=== PATIENT | male | born 1945 | race Caucasian/White ===

== ENCOUNTER → 2016-12-18 | Outpatient (CLI) | payer MEDICARE ==
[2016-12-18 13:34] LABS: CH 31.5; CHCM 32.8; HCT 46.1 % (39.0-53.0); HDW 2.44; HGB 15.3 gm/dL (13.0-17.5); MCH 32.1 pg (25.0-35.0); MCHC 33.2 g/dL (31.0-37.0); MCV 96.5 fL (80.0-100.0); Mean Platelet Volume 7.9; RBC 4.77 m/uL (4.30-5.90); RDW 13.8 % (11.5-15.5); WBC 9.5 k/uL (3.8-10.6)
[2016-12-18 13:44] LABS: ALT 35 U/L (21-72); AST 23 U/L (17-59); Alkaline Phosphatase 62 U/L (38-126); Anion Gap 10 mmol/L; Blood Urea Nitrogen 20 mg/dL (9-20); Calcium 9.5 mg/dL (8.4-10.2); Carbon Dioxide 27 mmol/L (22-30); Chloride 108 mmol/L (98-107); Cholesterol 112 mg/dL (<200); Glucose 111 mg/dL (74-99); HDL Cholesterol 37 mg/dL (40-60); Non-African American GFR(MDRD) >60 (>60 ml/min/1.73 sqM); Potassium 3.7 mmol/L (3.5-5.1); Sodium 145 mmol/L (137-145); Total Bilirubin 0.7 mg/dL (0.2-1.3); Total Protein 6.8 g/dL (6.3-8.2); Triglycerides 234 mg/dL (<150)
[2016-12-18 14:15] LABS: Prostate Specific Antigen 0.12 ng/mL (0.00-4.00)
--- NOTE | 2016-12-18 17:01 | CT ---
EXAMINATION TYPE: CT angio thoracic/abd aorta DATE OF EXAM: 12/18/2016 2:57 PM COMPARISON: NONE HISTORY: Patient has no complaints at time of study. Follow up study for known aortic aneurysm. CT DLP: 1845 mGycm Automated exposure control for dose reduction was used. CONTRAST: Performed with IV Contrast, patient injected with 100 mL of Omnipaque 350. Technique technique: CTA of the chest and abdomen is performed first without and with intravenous con trast. Three-D reconstructed images performed separately on the [employer] computer are reviewed. FINDINGS: The ascending thoracic aorta at the level of the main pulmonary artery is 3.7 rcm. The main pulmonary artery the bifurcation is 2.8 cm. No enlarged mediastinal or hilar adenopathy is evident. Coronary a rtery calcification is present. CT ABDOMEN: The right adrenal gland appears within normal limits. There is mild thickening of the lef t adrenal gland 1.1 cm. There is an exophytic cyst measuring 2.8 cm and 7 Hounsfield units along the anterior medial superior left kidney. Liver is unremarkable. Vascular calcifications within the aorta . Inferior vena cava is unremarkable. Loops of bowel without contrast appear unremarkable. Thyroid is somewhat heterogenous. Consider ultrasound evaluation. The ascending thoracic descending aorta taper normally. IMPRESSION: NO ANEURYSMAL DILATATION OF THE ASCENDING THORACIC AORTIC ARCH AND DESCENDING THORACIC OR ABDOMINAL A TACO. ASCENDING THORACIC AORTA AT 4.0 CM IS PROMINENT. 2. MILD PROMINENCE OF THE LEFT ADRENAL GLAND. 2. HETEROGENEITY OF THE SPLEEN. CONSIDER ULTRASOUND FOR ADDITIONAL EVALUATION.
[2016-12-18 22:19] LABS: Hemoglobin A1C 5.7 % (4.2-6.1)
== END | disposition home or self-care (01) ==
LOC: RADCTMAIN 12:58
PROVIDERS: ATTEND Internal Medicine Interventional Cardiology
DX: R93.8 Abnormal findings on diagnostic imaging of other specified body structures (principal); I10 Essential (primary) hypertension; R73.9 Hyperglycemia, unspecified; E78.00 Pure hypercholesterolemia, unspecified; Z00.00 Encounter for general adult medical examination without abnormal findings; Z13.29 Encounter for screening for other suspected endocrine disorder
CPT/HCPCS: 84439; 84153; 80061; 80053; 83036; 84443; 85027; 75635; 71275; 36415; Q9967

== ENCOUNTER → 2018-02-17 | Outpatient (CLI) | payer MEDICARE ==
--- NOTE | 2018-02-17 14:47 | CT ---
EXAMINATION TYPE: CT abdomen wo con DATE OF EXAM: 02/17/2018 COMPARISON: 12/18/2016 INDICATION: Abdominal aortic aneurysm, without rupture DLP: 1275.4 mGycm, Automated exposure control for dose reduction was used. CONTRAST: None Study performed without Oral Contrast TECHNIQUE: Axial images were obtained from above the diaphragm to the pubic rami in the axial plane a t 5 mm thick sections. Reconstructed images are reviewed on the computer in the coronal plane. FINDINGS: Limited CT sections are obtained the lung bases. The lung bases are clear. CT ABDOMEN: Liver: Normal Spleen: Normal Pancreas: Normal Adrenal glands: There is thickening of the left adrenal gland measuring 1.1 cm. The right adrenal gla nd appears normal. Gallbladder: Normal Kidneys: No masses are evident. No hydronephrosis is present. There is a large exophytic cyst on th e superior pole left kidney measuring 3.3 cm in craniocaudal dimension and 14 Hounsfield units. Aorta: Vascular calcification is within the aorta. Aorta measures 3.0 cm at some fusiform prominence within its midportion. AP diameter is 3.4 cm. In the sagittal plane images this measures 3.6 cm whic h is greater than a 3.3 cm from previous. Inferior vena cava: Normal. IMPRESSIONS: 1. Prominence of the mid abdominal aorta with maximum AP diameter of 3.6 cm. This is increased AP di ameter from the prior exam.
== END | disposition home or self-care (01) ==
LOC: RADCTMAIN 07:51
PROVIDERS: ATTEND Internal Medicine
DX: I71.4 Abdominal aortic aneurysm, without rupture (principal)
CPT/HCPCS: 74150

== ENCOUNTER → 2018-07-08 | Outpatient (CLI) | payer MEDICARE ==
[2018-07-08 14:39] LABS: HCT 44.7 % (39.0-53.0); HGB 14.2 gm/dL (13.0-17.5); MCH 30.7 pg (25.0-35.0); MCHC 31.8 g/dL (31.0-37.0); MCV 96.6 fL (80.0-100.0); Mean Platelet Volume 7.6; Platelet Count 195 k/uL (150-450); RBC 4.63 m/uL (4.30-5.90); RDW 13.6 % (11.5-15.5); WBC 9.1 k/uL (3.8-10.6)
[2018-07-08 19:25] LABS: ALT 19 U/L (10-49); AST 23 U/L (14-35); Albumin/Globulin Ratio 2.28 (1.20-2.10); Alkaline Phosphatase 51 U/L (41-126); C Reactive Protein <0.4 mg/dL (0.0-0.8); Calcium 8.9 mg/dL (8.7-10.3); Carbon Dioxide 26.7 mmol/L (21.6-31.8); Chloride 109 mmol/L (96-109); Globulin 1.8 g/dL (2.1-3.7); Glucose 128 mg/dL (70-110); Potassium 3.9 mmol/L (3.5-5.5); Sodium 143 mmol/L (135-145); Total Bilirubin 0.6 mg/dL (0.3-1.2); Total Protein 5.9 g/dL (6.2-8.2)
[2018-07-08 21:09] LABS: Erythrocyte Sedimentation Rate 2 mm/hr (0-15)
== END | disposition home or self-care (01) ==
LOC: LABWHC1 13:18
PROVIDERS: ATTEND Internal Medicine Infectious Disease
DX: E63.8 Other specified nutritional deficiencies (principal); L89.890 Pressure ulcer of other site, unstageable
CPT/HCPCS: 36415; 80053; 84134; 85027; 85652; 86140

== ENCOUNTER → 2018-08-12 | Outpatient (CLI) | payer MEDICARE ==
--- NOTE | 2018-08-12 12:29 | NM ---
EXAMINATION TYPE: NM bone 3 phase DATE OF EXAM: 08/12/2018 COMPARISON: NONE HISTORY: Pain and swelling Triple phase bone scintigraphy was performed following the injection of 25.0 mCi Tc 99m MDP. Immedia te images and 3.25 hours post injection images acquired. FINDINGS: There is increased perfusion to the right foot. Blood flow images demonstrate increased soft tissue uptake overlying the first digit distally. There is increased uptake involving the distal phalanx first digit. Abnormal uptake involving the MTP joint of the left foot and midfoot likely post arthritic. IMPRESSION: 1. Findings are suggestive of cellulitis with osteomyelitis distal phalanx first digit right foot.
== END | disposition home or self-care (01) ==
LOC: RADNMMAIN 07:28
PROVIDERS: ATTEND Internal Medicine Infectious Disease
DX: M86.8X8 Other osteomyelitis, other site (principal)
CPT/HCPCS: 78315; A9503

== ENCOUNTER → 2018-10-12 | Outpatient (CLI) | payer MEDICARE ==
--- NOTE | 2018-10-12 08:00 | US ---
EXAMINATION TYPE: US duplex aorta DATE OF EXAM: 10/12/2018 COMPARISON: NONE CLINICAL HISTORY: I71.4 Abdominal aortic aneurysm, without rupture. known AAA, no symptoms, family h/ o AAA EXAM MEASUREMENTS: Abdominal Aorta: Proximal: 3.2 x 3.5cm Mid: 3.1 x 2.9cm Distal: 2.5 x 2.0cm Bifurcation: Rt = 1.8cm Lt = 1.8cm More of an ectatic appearance of aorta by measurements today. IMPRESSION: 1. mild aneurysmal dilatation noted.
== END ==
LOC: RADUSWWP 07:11
PROVIDERS: ATTEND Internal Medicine
DX: I71.4 Abdominal aortic aneurysm, without rupture (principal)
CPT/HCPCS: 93979

== ENCOUNTER → 2019-02-27 | Outpatient (CLI) | payer MEDICARE ==
--- NOTE | 2019-02-27 20:23 | US ---
EXAMINATION TYPE: US venous doppler duplex LE LT DATE OF EXAM: 02/27/2019 7:54 PM COMPARISON: NONE CLINICAL HISTORY: L03.116 Cellulitis of left lower limb. Cellulitis left leg. No hx of DVT. Pt on blo od thinners. SIDE PERFORMED: Left TECHNIQUE: The lower extremity deep venous system is examined utilizing real time linear array sonog hina with graded compression, doppler sonography and color-flow sonography. VESSELS IMAGED: External Iliac Vein (EIV) Common Femoral Vein Deep Femoral Vein Greater Saphenous Vein * Femoral Vein Popliteal Vein Small Saphenous Vein * Proximal Calf Veins (* superficial vessels) Left Leg: No evidence of DVT in the left leg at this time. IMPRESSION: Normal left leg duplex venous sonogram.
== END | disposition home or self-care (01) ==
LOC: RADUSMAIN 19:07
PROVIDERS: ATTEND Internal Medicine
DX: L03.116 Cellulitis of left lower limb (principal)

== ENCOUNTER 2019-03-11 16:23 | Observation (INO) | payer MEDICARE ==
[2019-03-11] MEDS ORDERED: ASPIRIN 81 MG PO STA (16:47)
[2019-03-11 17:39] LABS: Basophils # (A) 0.1 k/uL (0-0.2); Basophils % (A) 1 %; Eosinophils # (A) 0.3 k/uL (0-0.7); Eosinophils % (A) 3 %; HCT 39.5 % (39.0-53.0); HGB 12.8 gm/dL (13.0-17.5); Lymphocytes # (A) 2.6 k/uL (1.0-4.8); Lymphocytes % (A) 28 %; MCH 30.6 pg (25.0-35.0); MCHC 32.4 g/dL (31.0-37.0); MCV 94.5 fL (80.0-100.0); Mean Platelet Volume 8.2; Monocytes # (A) 0.7 k/uL (0-1.0); Monocytes % (A) 7 %; Neutrophils # (A) 5.3 k/uL (1.3-7.7); Neutrophils % (A) 58 %; Platelet Count 191 k/uL (150-450); RBC 4.19 m/uL (4.30-5.90); RDW 14.2 % (11.5-15.5); WBC 9.1 k/uL (3.8-10.6)
[2019-03-11 17:48] LABS: African American GFR (CKD) >90 (>60 ml/min/1.73 sqM); Anion Gap 9 mmol/L; Blood Urea Nitrogen 20 mg/dL (9-20); Calcium 9.4 mg/dL (8.4-10.2); Carbon Dioxide 23 mmol/L (22-30); Chloride 109 mmol/L (98-107); Glucose 109 mg/dL (74-99); Sodium 141 mmol/L (137-145)
--- NOTE | 2019-03-11 18:03 | XR ---
EXAMINATION TYPE: XR chest 2V DATE OF EXAM: 03/11/2019 COMPARISON: 10/21/2015 INDICATION: Pain, short of breath TECHNIQUE: Frontal and lateral views of the chest are obtained. FINDINGS: The heart size is normal. The pulmonary vasculature is normal. The lungs are clear. Pacemaker overlies left chest. IMPRESSION: 1. No acute pulmonary process.
--- NOTE | 2019-03-11 18:04 | XR ---
EXAMINATION TYPE: XR ribs LT DATE OF EXAM: 03/11/2019 COMPARISON: 03/11/2019 HISTORY: Pain TECHNIQUE: Two-view left RIBS FINDINGS: No pneumothorax is evident on these images were the accompanying chest film. No displaced fractures are evident. IMPRESSION: 1. Normal left ribs
[2019-03-11] MEDS ORDERED: NALOXONE 0.4 MG/ML 1 ML VIAL IV PRN (19:32)
--- NOTE | 2019-03-11 19:48 | ED ---
General Adult HPI - General Chief complaint: Arrhythmia/Palpitations Stated complaint: palpitations Time Seen by Provider: 03/11/19 16:33 Source: patient, family Mode of arrival: ambulatory Limitations: no limitations - History of Present Illness Initial comments: Patient is a 73-year-old male with a history of atrial fibrillation, status post pacemaker placement who presents with a chief complaint of intermittent lightheadedness, or palpitations, fatigue. Patient states that at home he has been taking his pulse ox and heart rate this as his heart rate is in the low 30s. His vehicle after about 4 days. He cannot identify the inciting incident. There are no remitting or alleviating factors. Timing is constant. Patient denies chest pain, nausea or vomiting, diaphoresis. - Related Data Home Medications Medication Instructions Recorded Confirmed Furosemide [Lasix] 20 mg PO QAM 02/27/14 03/11/19 Hydrocodone/Acetaminophen [[place] 1 tab PO BID 02/27/14 03/11/19 7.5-325] Losartan Potassium 100 mg PO QAM 02/27/14 03/11/19 Montelukast [Singulair] 10 mg PO HS 02/27/14 03/11/19 Simvastatin [Zocor] 40 mg PO HS 02/27/14 03/11/19 Terazosin [Hytrin] 5 mg PO BID 02/27/14 03/11/19 hydrALAZINE HCL [Apresoline] 50 mg PO TID 02/27/14 03/11/19 Mens Prostate Support 1 tab PO BID 10/31/15 03/11/19 Metoprolol Tartrate [Lopressor] 50 mg PO BID 10/31/15 03/11/19 Multivitamins, Thera [Multivitamin 1 tab PO DAILY 10/31/15 03/11/19 (formulary)] Albuterol Nebulized [Ventolin 2.5 mg INHALATION RT-BID 12/11/15 03/11/19 Nebulized] Budesonide/Formoterol Fumarate 2 puff INHALATION RT-BID 12/11/15 03/11/19 [Symbicort 160-4.5 Mcg Inhaler] Rivaroxaban [Xarelto] 15 mg PO DAILY 06/28/18 03/11/19 Cholecalciferol [Vitamin D3 (25 1,000 unit PO HS 03/11/19 03/11/19 Mcg = 1000 Iu)] Coconut Oil 1,000 mg PO BID 03/11/19 03/11/19 Allergies Allergy/AdvReac Type Severity Reaction Status Date / Time Tetanus Vaccines and Toxoid Allergy Unknown Verified 03/11/19 20:18 Review of Systems ROS Statement: Those systems with pertinent positive or pertinent negative responses have been documented in the HPI. ROS Other: All systems not noted in ROS Statement are negative. Cardiovascular: Reports: palpitations Past Medical History Past Medical History: Heart Failure, COPD, Hyperlipidemia, Hypertension, Prostate Disorder, Sleep Apnea/CPAP/BIPAP Additional Past Medical History / Comment(s): REFLEX SYMPATHETIC DYSTROPHY, PACEMAKER /AICD ([employer]), DENIES EDEMA, USES C-PAP MACHINE, ENLARGED PROSTATE. , . History of Any Multi-Drug Resistant Organisms: None Reported Past Surgical History: AICD, Back Surgery, Pacemaker Additional Past Surgical History / Comment(s): BACK SURGERY X3, ABDOMINAL MASS, UMBILICAL HERNIA SURGERY'S. mass removed from throat Past Anesthesia/Blood Transfusion Reactions: No Reported Reaction Type of Cardiac Device: Permanent Pacemaker, AICD Device Placement Date:: 05/19/2011 Past Psychological History: No Psychological Hx Reported Smoking Status: Light tobacco smoker Past Alcohol Use History: None Reported - Past Family History Brother(s) Family Medical History: Deep Vein Thrombosis (DVT) Father Family Medical History: Cancer Additional Family Medical History / Comment(s): LIP CANCER Mother Additional Family Medical History / Comment(s): anuersym of the brain General Exam Limitations: no limitations General appearance: alert, in no apparent distress Head exam: Present: atraumatic, normocephalic Eye exam: Present: normal appearance ENT exam: Present: normal exam Neck exam: Present: normal inspection Respiratory exam: Present: normal lung sounds bilaterally. Absent: respiratory distress, wheezes Cardiovascular Exam: Present: regular rate, normal rhythm GI/Abdominal exam: Present: soft. Absent: distended, tenderness Rectal exam: Present: deferred Extremities exam: Present: normal inspection Back exam: Present: normal inspection Neurological exam: Present: alert, oriented X3 Psychiatric exam: Present: normal affect, normal mood Skin exam: Present: warm, dry, intact Course Vital Signs 03/11/19 03/11/19 16:26 20:14 Temperature 97.9 F 98.3 F Pulse Rate 77 90 Respiratory 20 17 Rate Blood Pressure 167/77 170/69 O2 Sat by Pulse 97 92 L Oximetry Medical Decision Making - Medical Decision Making Patient presents with a chief complaint of palpitations. Initial evaluation, vital signs are stable, patient is in no acute distress. Patient to be evaluated with basic labs including cardiac enzymes, chest x-ray, and he will have his pacemaker interrogated. 8:13 PM Laboratory evaluation this patient is unremarkable. Chest x-ray and rib x-rays do not show any acute process. Reevaluation, the patient is resting comfortably. He'll be admitted as he is likely symptomatic from his frequent PVCs identified on EKG. Case discussed with Dr. Springer who accepts admission. Case discussed Dr. Lombardo who is aware the patient and knows that he will be consult. - Lab Data Result diagrams: 03/11/19 17:07 03/11/19 17:07 Lab Results 03/11/19 03/11/19 03/11/19 Range/Units 17:07 17:07 17:07 WBC 9.1 (3.8-10.6) k/uL RBC 4.19 L (4.30-5.90) m/uL Hgb 12.8 L (13.0-17.5) gm/dL Hct 39.5 (39.0-53.0) % MCV 94.5 (80.0-100.0) fL MCH 30.6 (25.0-35.0) pg MCHC 32.4 (31.0-37.0) g/dL RDW 14.2 (11.5-15.5) % Plt Count 191 (150-450) k/uL Neutrophils % 58 % Lymphocytes % 28 % Monocytes % 7 % Eosinophils % 3 % Basophils % 1 % Neutrophils # 5.3 (1.3-7.7) k/uL Lymphocytes # 2.6 (1.0-4.8) k/uL Monocytes # 0.7 (0-1.0) k/uL Eosinophils # 0.3 (0-0.7) k/uL Basophils # 0.1 (0-0.2) k/uL Sodium 141 (137-145) mmol/L Potassium 4.0 (3.5-5.1) mmol/L Chloride 109 H (98-107) mmol/L Carbon Dioxide 23 (22-30) mmol/L Anion Gap 9 mmol/L BUN 20 (9-20) mg/dL Creatinine 0.79 (0.66-1.25) mg/dL Est GFR (CKD-EPI)AfAm >90 (>60 ml/min/1.73 sqM) Est GFR (CKD-EPI)NonAf 89 (>60 ml/min/1.73 sqM) Glucose 109 H (74-99) mg/dL Calcium 9.4 (8.4-10.2) mg/dL Troponin I (0.000-0.034) ng/mL NT-Pro-B Natriuret Pep 605 pg/mL 03/11/19 Range/Units 17:07 WBC (3.8-10.6) k/uL RBC (4.30-5.90) m/uL Hgb (13.0-17.5) gm/dL Hct (39.0-53.0) % MCV (80.0-100.0) fL MCH (25.0-35.0) pg MCHC (31.0-37.0) g/dL RDW (11.5-15.5) % Plt Count (150-450) k/uL Neutrophils % % Lymphocytes % % Monocytes % % Eosinophils % % Basophils % % Neutrophils # (1.3-7.7) k/uL Lymphocytes # (1.0-4.8) k/uL Monocytes # (0-1.0) k/uL Eosinophils # (0-0.7) k/uL Basophils # (0-0.2) k/uL Sodium (137-145) mmol/L Potassium (3.5-5.1) mmol/L Chloride (98-107) mmol/L Carbon Dioxide (22-30) mmol/L Anion Gap mmol/L BUN (9-20) mg/dL Creatinine (0.66-1.25) mg/dL Est GFR (CKD-EPI)AfAm (>60 ml/min/1.73 sqM) Est GFR (CKD-EPI)NonAf (>60 ml/min/1.73 sqM) Glucose (74-99) mg/dL Calcium (8.4-10.2) mg/dL Troponin I 0.015 (0.000-0.034) ng/mL NT-Pro-B Natriuret Pep pg/mL Disposition Clinical Impression: Palpitations, PVCs (premature ventricular contractions) Disposition: ADMITTED IP TO THIS HOSP Condition: Good Referrals: Candice Freitas MD [Primary Care Provider] - 1-2 days Decision to Admit Reason: Admit from EC - Out of Hospital Transfer - Req. Specs Out of Hospital Transfer - Requested Specifics: Telemetry Unit
[2019-03-11 21:57] VITALS: BMI 33.3
[2019-03-11] MEDS ORDERED: HYDROcodone/APAP 7.5-325MG 1 EACH TAB PO PRN (22:15)
[2019-03-11] MEDS ORDERED: MONTELUKAST 10 MG TAB PO SCH (22:30)
[2019-03-11] MEDS: hydrALAZINE HCL 50 MG TAB PO SCH (22:31)
[2019-03-11] MEDS: SYMBICORT 160-4.5 MCG INHALER INHALATION SCH (23:53)
[2019-03-11] MEDS: ALBUTEROL NEBULIZED 2.5 MG/3 ML INHALATION SCH (23:59)
[2019-03-12 01:41] VITALS: RESP 18
[2019-03-12 06:38] LABS: Basophils # (A) 0.1 k/uL (0-0.2); Basophils % (A) 1 %; Eosinophils # (A) 0.3 k/uL (0-0.7); Eosinophils % (A) 4 %; HCT 40.4 % (39.0-53.0); Lymphocytes # (A) 2.4 k/uL (1.0-4.8); Lymphocytes % (A) 31 %; MCHC 32.1 g/dL (31.0-37.0); MCV 96.3 fL (80.0-100.0); Mean Platelet Volume 7.8; Monocytes # (A) 0.5 k/uL (0-1.0); Monocytes % (A) 7 %; Neutrophils # (A) 4.2 k/uL (1.3-7.7); Neutrophils % (A) 54 %; Platelet Count 179 k/uL (150-450); RBC 4.19 m/uL (4.30-5.90); RDW 14.1 % (11.5-15.5); WBC 7.8 k/uL (3.8-10.6)
[2019-03-12 07:10] LABS: African American GFR (CKD) >90 (>60 ml/min/1.73 sqM); Anion Gap 9 mmol/L; Blood Urea Nitrogen 16 mg/dL (9-20); Calcium 8.8 mg/dL (8.4-10.2); Carbon Dioxide 23 mmol/L (22-30); Chloride 110 mmol/L (98-107); Glucose 94 mg/dL (74-99); Potassium 3.8 mmol/L (3.5-5.1); Sodium 142 mmol/L (137-145)
[2019-03-12] MEDS: hydrALAZINE HCL 50 MG TAB PO SCH (08:01)
[2019-03-12] MEDS ORDERED: LOSARTAN 50 MG TAB PO SCH (09:00)
[2019-03-12] MEDS ORDERED: RIVAROXABAN 15 MG TAB PO SCH ×2 (09:00→17:30)
--- NOTE | 2019-03-12 09:05 | P.CRDCN ---
History of Present Illness Consult date: 03/12/19 Reason for Consult (text): Symptomatic PVCs History of present illness: This is a 73-year-old male patient of Dr. 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 Patient gives history that starting on he was feeling very fatigued. He walked at the store with his all she was shopping for about 20 minutes and felt like he had been running. He complains of feeling tired and fatigued and in general just exhausted. He states he has been eating and drinking okay. No nausea or vomiting, no diarrhea. He denies any urinary symptoms He denies having any lightheadedness or dizziness. No palpitations but he occasionally feels a heartbeat in his ears. Patient denies any chest pain. He states he checked his heart rate on his blood pressure cuff and this was 37. His checked his heart rate and he was 47 and pulse ox meter obtained heart rate of 37. Patient came in to [facility] emergency center for evaluation. Initial blood pressure 167/77, heart rate 77. Through the night, registered nurse ambulatory is a paced rhythm with frequent PVCs and no runs of V. tach. The patient states he is feeling okay right now but he knows if he gets up and walks that he will feel fatigued. EKG reveals a paced rhythm with PVCs. Laboratory studies: WBC 9.1, hemoglobin 12.8, platelet count 191. Sodium 141, potassium 4.0, chloride 109, CO2 23, creatinine 0.79, BUN 20. Blood sugar 89. Troponins negative on 2 draws, TSH 1.7-0. Chest and rib x-rays show no acute process. Review Of Systems: Constitutional: No fever, no chills, no night sweats. No weight change. Reports fatigue EENT: No headache. No blurred vision or double vision, no loss of vision. No loss of Hearing, no ringing in the ears, no dizziness. No nasal drainage or congestion. No epistaxis. No sore throat. Lungs: Reports shortness of breath at baseline secondary to COPD, denies cough, no sputum production. No wheezing. Cardiovascular: No chest pain, chronic lower extremity edema. No palpitations. No paroxysmal nocturnal dyspnea. No orthopnea. No lightheadedness or dizziness. No syncopal episodes. Abdominal: No abdominal pain. No nausea, vomiting. No diarrhea. No constipation. No bloody or tarry stools.. No loss of appetite. Genitourinary: No dysuria, increased frequency, urgency. No urinary retention. Musculoskeletal: No myalgias. No muscle weakness, no gait dysfunction, no frequent falls. No back pain. No neck pain. Integumentary: No wounds, no lesions. No rash or pruritus. No unusual bru ising. No change in hair or nails. Neurologic: No aphasia. No facial droop. No change in mentation. No head injury. No headache. No paralysis. No paresthesia. Psychiatric: No depression. No anxiety. No mood swings. Endocrine: No abnormal blood sugars. No weight change. No excessive sweating or thirst. No cold intolerance. No weight change. Gen: This is a 73-year-old obese male. He is sitting on the edge of the bed and appears to be comfortable and in no acute distress. HEENT: Head is atraumatic, normocephalic. Pupils equal, round. Sclerae is anicteric. NECK: Supple. No JVD. No lymphadenopathy. No thyromegaly. LUNGS: Clear to auscultation. No wheezes or rhonchi. No intercostal retractions. HEART: Irregular rate and rhythm. No murmur. ABDOMEN: Soft. Bowel sounds are present. No masses. No tenderness. EXTREMITIES: 1+ pedal edema left and trace right. Dorsalis pedis +2 bilaterally. NEUROLOGICAL: Patient is awake, alert and oriented x3. Cranial nerves 2 through 12 are grossly intact. Assessment: Generalized fatigue Low heart rate readings on blood pressure cuff and pulse ox secondary to PVCs. Patient is maintaining paced rhythm with frequent PVCs. Nonischemic myopathy status post ICD Chronic systolic heart failure Hypertension Hyperlipidemia Nonobstructive coronary artery disease Chronic atrial fibrillation on Xarelto COPD Obstructive sleep apnea on CPAP Plan: Continue Resume Lasix 20 mg daily Discontinue Lopressor 50 mg twice daily and start metoprolol succinate 50 mg daily Continue hydralazine 50 mg 3 times daily, losartan 100 mg daily, Lopressor 50 mg twice daily, statin Continue Xarelto 50 mg daily Patient is cleared for discharge home today. Follow-up with Dr. FARHANA Lewis in the next 1-2 weeks. Thank you kindly for this consultation. Nurse practitioner note has been reviewed, I agree with documented findings and plan of care. Patient was seen and examined. Past Medical History Past Medical History: Heart Failure, COPD, Hyperlipidemia, Hypertension, Prostate Disorder, Sleep Apnea/CPAP/BIPAP Additional Past Medical History / Comment(s): REFLEX SYMPATHETIC DYSTROPHY, PACEMAKER /AICD ([employer]), DENIES EDEMA, USES C-PAP MACHINE, ENLARGED PROSTATE. , . History of Any Multi-Drug Resistant Organisms: None Reported Past Surgical History: AICD, Back Surgery, Pacemaker Additional Past Surgical History / Comment(s): BACK SURGERY X3, ABDOMINAL MASS, UMBILICAL HERNIA SURGERY'S. mass removed from throat Past Anesthesia/Blood Transfusion Reactions: No Reported Reaction Type of Cardiac Device: Permanent Pacemaker, AICD Device Placement Date:: 05/19/2011 Past Psychological History: No Psychological Hx Reported Smoking Status: Former smoker Past Alcohol Use History: None Reported Additional Past Alcohol Use History / Comment(s): SMOKING FOR 50 YEARS OR MORE, USED TO SMOKE 1 PPD. Past Drug Use History: Marijuana Additional Drug Use History / Comment(s): MARIJUANA COOKIES PRN PAIN. - Past Family History Brother(s) Family Medical History: Deep Vein Thrombosis (DVT) Father Family Medical History: Cancer Additional Family Medical History / Comment(s): LIP CANCER Mother Additional Family Medical History / Comment(s): anuersym of the brain Medications and Allergies Home Medications Medication Instructions Recorded Confirmed Type Furosemide [Lasix] 20 mg PO QAM 02/27/14 03/11/19 History Hydrocodone/Acetaminophen [[place] 1 tab PO BID 02/27/14 03/11/19 History 7.5-325] Losartan Potassium 100 mg PO QAM 02/27/14 03/11/19 History Montelukast [Singulair] 10 mg PO HS 02/27/14 03/11/19 History Simvastatin [Zocor] 40 mg PO HS 02/27/14 03/11/19 History Terazosin [Hytrin] 5 mg PO BID 02/27/14 03/11/19 History hydrALAZINE HCL [Apresoline] 50 mg PO TID 02/27/14 03/11/19 History Mens Prostate Support 1 tab PO BID 10/31/15 03/11/19 History Multivitamins, Thera [Multivitamin 1 tab PO DAILY 10/31/15 03/11/19 History (formulary)] Albuterol Nebulized [Ventolin 2.5 mg INHALATION RT-BID 12/11/15 03/11/19 History Nebulized] Budesonide/Formoterol Fumarate 2 puff INHALATION RT-BID 12/11/15 03/11/19 History [Symbicort 160-4.5 Mcg Inhaler] Rivaroxaban [Xarelto] 15 mg PO DAILY 06/28/18 03/11/19 History Cholecalciferol [Vitamin D3 (25 1,000 unit PO HS 03/11/19 03/11/19 History Mcg = 1000 Iu)] Coconut Oil 1,000 mg PO BID 03/11/19 03/11/19 History Metoprolol Succinate [Toprol Xl] 50 mg PO DAILY #30 tab.er.24h 03/12/19 Rx Allergies Allergy/AdvReac Type Severity Reaction Status Date / Time Tetanus Vaccines and Toxoid Allergy Unknown Verified 03/11/19 20:18 Physical Exam Vitals: Vital Signs Temp Pulse Pulse Resp BP BP Pulse Ox 03/12/19 07:50 98.3 F 18 146/67 94 L 03/12/19 04:00 98 F 72 18 134/81 94 L 03/12/19 00:07 72 03/12/19 00:00 98.5 F 72 81 18 160/84 94 L 03/11/19 21:01 76 14 172/86 96 03/11/19 20:38 98.4 F 58 L 20 162/78 98 03/11/19 20:00 98.1 F 66 14 154/90 96 03/11/19 16:26 97.9 F 77 20 167/77 97 Intake and Output 03/11/19 03/12/19 03/12/19 22:59 06:59 14:59 Intake Total 240 Balance 240 Intake: Oral 240 Other: # Voids 2 Weight 126.099 kg 126 kg Results 03/12/19 05:56 03/12/19 05:56 Cardiac Enzymes 03/11/19 03/11/19 Range/Units 17:07 20:34 Troponin I 0.015 0.018 (0.000-0.034) ng/mL CBC 03/11/19 03/12/19 Range/Units 17:07 05:56 WBC 9.1 7.8 (3.8-10.6) k/uL RBC 4.19 L 4.19 L (4.30-5.90) m/uL Hgb 12.8 L 13.0 (13.0-17.5) gm/dL Hct 39.5 40.4 (39.0-53.0) % Plt Count 191 179 (150-450) k/uL Comprehensive Metabolic Panel 03/11/19 03/12/19 Range/Units 17:07 05:56 Sodium 141 142 (137-145) mmol/L Potassium 4.0 3.8 (3.5-5.1) mmol/L Chloride 109 H 110 H (98-107) mmol/L Carbon Dioxide 23 23 (22-30) mmol/L BUN 20 16 (9-20) mg/dL Creatinine 0.79 0.77 (0.66-1.25) mg/dL Glucose 109 H 94 (74-99) mg/dL Calcium 9.4 8.8 (8.4-10.2) mg/dL Current Medications Generic Name Dose Route Start Last Admin Trade Name Freq PRN Reason Stop Dose Admin Hydrocodone Bitart/Acetaminophen 1 each 03/11/19 22:15 03/11/19 22:31 [place] 7.5-325 PO 1 each BID PRN Administration Pain Albuterol Sulfate 2.5 mg 03/11/19 22:16 03/11/19 23:59 Ventolin Nebulized INHALATION 2.5 mg RT-BID ЕЛЕНА Administration Atorvastatin Calcium 20 mg 03/12/19 21:00 Lipitor PO HS [facility] Budesonide/Formoterol Fumarate 2 puff 03/11/19 22:16 03/11/19 23:53 Symbicort 160-4.5 Mcg Inhaler INHALATION Not Given RT-BID [facility] Hydralazine HCl 50 mg 03/11/19 22:30 03/12/19 08:01 Apresoline PO 50 mg TID ЕЛЕНА Administration Losartan Potassium 100 mg 03/12/19 09:00 03/12/19 08:01 Cozaar PO 100 mg QAM ЕЛЕНА Administration Montelukast Sodium 10 mg 03/11/19 22:30 03/11/19 22:31 Singulair PO 10 mg HS ЕЛЕНА Administration Naloxone HCl 0.2 mg 03/11/19 19:32 Narcan IV Q2M PRN Opioid Reversal Rivaroxaban 15 mg 03/12/19 17:30 Xarelto PO W/SUPPER ЕЛЕНА Intake and Output 03/11/19 03/12/19 03/12/19 22:59 06:59 14:59 Intake Total 240 Balance 240 Intake: Oral 240 Other: # Voids 2 Weight 126.099 kg 126 kg 03/12/19 05:56 03/12/19 05:56
[2019-03-12] MEDS ORDERED: FUROSEMIDE 20 MG TAB PO SCH (09:15)
[2019-03-12] MEDS ORDERED: METOPROLOL SUCCINATE (ER) 100 MG TAB.ER.24H PO SCH (09:45)
[2019-03-12] MEDS: SYMBICORT 160-4.5 MCG INHALER INHALATION SCH (11:02)
[2019-03-12] MEDS: ALBUTEROL NEBULIZED 2.5 MG/3 ML INHALATION SCH (11:02)
[2019-03-12 12:05] VITALS: BP 159/82; PULSE 68; TEMP 96.2
--- NOTE | 2019-03-12 13:46 | P.DS ---
Providers Date of admission: 03/11/19 19:35 Attending physician: Ganga Springer MD Consults: 03/11/19 19:33 Consult Physician Routine Consulting Provider: Jorge L Lombardo Consult Reason/Comments: symptomatic PVC's Do you want consulting provider notified?: Already Contacted Primary care physician: Candice Freitas [facility] Course: please refer to my HPI Patient Condition at Discharge: Good Plan - Discharge Summary Discharge Rx Participant: No New Discharge Prescriptions: New Metoprolol Succinate [Toprol Xl] 50 mg PO DAILY #30 tab.er.24h Discontinued Metoprolol Tartrate [Lopressor] 50 mg PO BID No Action Hydrocodone/Acetaminophen [[place] 7.5-325] 1 tab PO BID hydrALAZINE HCL [Apresoline] 50 mg PO TID Terazosin [Hytrin] 5 mg PO BID Simvastatin [Zocor] 40 mg PO HS Furosemide [Lasix] 20 mg PO QAM Montelukast [Singulair] 10 mg PO HS Losartan Potassium 100 mg PO QAM Multivitamins, Thera [Multivitamin (formulary)] 1 tab PO DAILY Mens Prostate Support 1 tab PO BID Albuterol Nebulized [Ventolin Nebulized] 2.5 mg INHALATION RT-BID Budesonide/Formoterol Fumarate [Symbicort 160-4.5 Mcg Inhaler] 2 puff INHALATION RT-BID Rivaroxaban [Xarelto] 15 mg PO DAILY Cholecalciferol [Vitamin D3 (25 Mcg = 1000 Iu)] 1,000 unit PO HS Coconut Oil 1,000 mg PO BID Discharge Medication List Furosemide [Lasix] 20 mg PO QAM 02/27/14 [History] Hydrocodone/Acetaminophen [[place] 7.5-325] 1 tab PO BID 02/27/14 [History] Losartan Potassium 100 mg PO QAM 02/27/14 [History] Montelukast [Singulair] 10 mg PO HS 02/27/14 [History] Simvastatin [Zocor] 40 mg PO HS 02/27/14 [History] Terazosin [Hytrin] 5 mg PO BID 02/27/14 [History] hydrALAZINE HCL [Apresoline] 50 mg PO TID 02/27/14 [History] Mens Prostate Support 1 tab PO BID 10/31/15 [History] Multivitamins, Thera [Multivitamin (formulary)] 1 tab PO DAILY 10/31/15 [History] Albuterol Nebulized [Ventolin Nebulized] 2.5 mg INHALATION RT-BID 12/11/15 [History] Budesonide/Formoterol Fumarate [Symbicort 160-4.5 Mcg Inhaler] 2 puff INHALATION RT-BID 12/11/15 [History] Rivaroxaban [Xarelto] 15 mg PO DAILY 06/28/18 [History] Cholecalciferol [Vitamin D3 (25 Mcg = 1000 Iu)] 1,000 unit PO HS 03/11/19 [History] Coconut Oil 1,000 mg PO BID 03/11/19 [History] Metoprolol Succinate [Toprol Xl] 50 mg PO DAILY #30 tab.er.24h 03/12/19 [Rx] Follow up Appointment(s)/Referral(s): Jocelyn Lewis MD [STAFF PHYSICIAN] - 1 Week (Please call on Wednesday to make an appointment. ) Candice Freitas MD [Primary Care Provider] - 3 Days (Please call on Wednesday to make an appointment. ) Patient Instructions/Handouts: Premature Ventricular Contractions (DC) Activity/Diet/Wound Care/Special Instructions: Activity restricted until follow up by Home Designer and primary care provider. Diet-heart healthy Discharge Disposition: HOME SELF-CARE
--- NOTE | 2019-03-12 13:46 | P.HPIM ---
History of Present Illness 70-year-old pleasant gentleman with a nonischemic myopathy AICD in the [facility] in because the patient was bradycardic Peter patient was bit tired yesterday because of which Vitals were checked and patient was bradycardic up to heart rate going down to as low as 30s. His pacemaker was interrogated which did not show any significant abnormality patient is in metoprolol 50 twice a day. Patient was monitored overnight blood pressure is fine now his metoprolol was being held since last night metoprolol is being switched to Toprol-XL 50 daily essentially his metoprolol dose is being changed to half a dose. Patient is clinically doing well denied any fever chills nausea vomiting abdominal been no signs or symptoms of sepsis . Patient will be discharged today Review of Systems REVIEW OF SYSTEMS: CONSTITUTIONAL: No fever, no malaise, HEENT: No recent visual problems or hearing problems. Denied any sore throat. CARDIOVASCULAR: No chest pain, orthopnea, PND, no palpitations, no syncope. PULMONARY: No shortness of breath, no cough, no hemoptysis. GASTROINTESTINAL: No diarrhea, no nausea, no vomiting, no abdominal pain. NEUROLOGICAL: No headaches, no weakness, no numbness. HEMATOLOGICAL: Denies any bleeding or petechiae. GENITOURINARY: Denies any burning micturition, frequency, or urgency. MUSCULOSKELETAL/RHEUMATOLOGICAL: Denies any joint pain, swelling, or any muscle pain. ENDOCRINE: Denies any polyuria or polydipsia. The rest of the 14-point review of systems is negative. Past Medical History Past Medical History: Heart Failure, COPD, Hyperlipidemia, Hypertension, Prostate Disorder, Sleep Apnea/CPAP/BIPAP Additional Past Medical History / Comment(s): REFLEX SYMPATHETIC DYSTROPHY, PACEMAKER /AICD ([employer]), DENIES EDEMA, USES C-PAP MACHINE, ENLARGED PROSTATE. , . History of Any Multi-Drug Resistant Organisms: None Reported Past Surgical History: AICD, Back Surgery, Pacemaker Additional Past Surgical History / Comment(s): BACK SURGERY X3, ABDOMINAL MASS, UMBILICAL HERNIA SURGERY'S. mass removed from throat Past Anesthesia/Blood Transfusion Reactions: No Reported Reaction Type of Cardiac Device: Permanent Pacemaker, AICD Device Placement Date:: 05/19/2011 Past Psychological History: No Psychological Hx Reported Smoking Status: Former smoker Past Alcohol Use History: None Reported Additional Past Alcohol Use History / Comment(s): SMOKING FOR 50 YEARS OR MORE, USED TO SMOKE 1 PPD. Past Drug Use History: Marijuana Additional Drug Use History / Comment(s): MARIJUANA COOKIES PRN PAIN. - Past Family History Brother(s) Family Medical History: Deep Vein Thrombosis (DVT) Father Family Medical History: Cancer Additional Family Medical History / Comment(s): LIP CANCER Mother Additional Family Medical History / Comment(s): anuersym of the brain Medications and Allergies Home Medications Medication Instructions Recorded Confirmed Type Furosemide [Lasix] 20 mg PO QAM 02/27/14 03/11/19 History Hydrocodone/Acetaminophen [[place] 1 tab PO BID 02/27/14 03/11/19 History 7.5-325] Losartan Potassium 100 mg PO QAM 02/27/14 03/11/19 History Montelukast [Singulair] 10 mg PO HS 02/27/14 03/11/19 History Simvastatin [Zocor] 40 mg PO HS 02/27/14 03/11/19 History Terazosin [Hytrin] 5 mg PO BID 02/27/14 03/11/19 History hydrALAZINE HCL [Apresoline] 50 mg PO TID 02/27/14 03/11/19 History Mens Prostate Support 1 tab PO BID 10/31/15 03/11/19 History Multivitamins, Thera [Multivitamin 1 tab PO DAILY 10/31/15 03/11/19 History (formulary)] Albuterol Nebulized [Ventolin 2.5 mg INHALATION RT-BID 12/11/15 03/11/19 History Nebulized] Budesonide/Formoterol Fumarate 2 puff INHALATION RT-BID 12/11/15 03/11/19 History [Symbicort 160-4.5 Mcg Inhaler] Rivaroxaban [Xarelto] 15 mg PO DAILY 06/28/18 03/11/19 History Cholecalciferol [Vitamin D3 (25 1,000 unit PO HS 03/11/19 03/11/19 History Mcg = 1000 Iu)] Coconut Oil 1,000 mg PO BID 03/11/19 03/11/19 History Metoprolol Succinate [Toprol Xl] 50 mg PO DAILY #30 tab.er.24h 03/12/19 Rx Allergies Allergy/AdvReac Type Severity Reaction Status Date / Time Tetanus Vaccines and Toxoid Allergy Unknown Verified 03/11/19 20:18 Physical Exam Vitals: Vital Signs Temp Pulse Pulse Resp BP BP Pulse Ox 03/12/19 12:00 96.2 F L 68 18 159/82 03/12/19 11:28 80 03/12/19 11:02 80 03/12/19 07:50 98.3 F 65 18 146/67 94 L 03/12/19 04:00 98 F 72 18 134/81 94 L 03/12/19 00:07 72 03/12/19 00:00 98.5 F 72 81 18 160/84 94 L 03/11/19 21:01 76 14 172/86 96 03/11/19 20:38 98.4 F 58 L 20 162/78 98 03/11/19 20:00 98.1 F 66 14 154/90 96 03/11/19 16:26 97.9 F 77 20 167/77 97 Intake and Output 03/11/19 03/12/19 03/12/19 22:59 06:59 14:59 Intake Total 240 Balance 240 Intake: Oral 240 Other: # Voids 2 Weight 126.099 kg 126 kg PHYSICAL EXAMINATION: GENERAL: The patient is alert and oriented x3, not in any acute distress.obese HEENT: Pupils are round and equally reacting to light. EOMI. No scleral icterus. No conjunctival pallor. Normocephalic, atraumatic. No pharyngeal erythema. No thyromegaly. CARDIOVASCULAR: S1 and S2 present. No murmurs, rubs, or gallops. PULMONARY: Chest is clear to auscultation, no wheezing or crackles. ABDOMEN: Soft, nontender, nondistended, normoactive bowel sounds. No palpable organomegaly. MUSCULOSKELETAL: No joint swelling or deformity. EXTREMITIES: No cyanosis, clubbing, or pedal edema. NEUROLOGICAL: Gross neurological examination did not reveal any focal deficits. SKIN: No rashes. Results CBC & Chem 7: 03/12/19 05:56 03/12/19 05:56 Labs: Abnormal Lab Results - Last 24 Hours (Table) 03/11/19 03/11/19 03/12/19 Range/Units 17:07 17:07 05:56 RBC 4.19 L 4.19 L (4.30-5.90) m/uL Hgb 12.8 L (13.0-17.5) gm/dL Chloride 109 H (98-107) mmol/L Glucose 109 H (74-99) mg/dL 03/12/19 Range/Units 05:56 RBC (4.30-5.90) m/uL Hgb (13.0-17.5) gm/dL Chloride 110 H (98-107) mmol/L Glucose (74-99) mg/dL Thrombosis Risk Factor Assmnt - Choose All That Apply Each Factor Represents 1 point: Abnormal pulmonary function (COPD), Obesity (BMI >25) Other Risk Factors: Yes Each Risk Factor Represents 2 Points: Age 61-74 years Thrombosis Risk Factor Assessment Total Risk Factor Score: 4 Thrombosis Risk Factor Assessment Level: Moderate Risk Assessment and Plan Plan: -50 probably secondary to bradycardia bradycardia which improved now cutting down the dose of beta yvonne and his bradycardia secondary to beta yvonne - nonischemic cardiomyopathy patient is euvolemic patient is post AICD placement -chronic systolic dysfunction without any acute exacerbation -Hypertension next and-hyperlipidemia -Coronary artery disease -Chronic atrial fibrillation on anticoagulation -COPD -Obstructive sleep apnea on CPAP Monitored overnight patient will be discharged on decrease the dose of her beta yvonne.
[2019-03-12] MEDS ORDERED: ATORVASTATIN 20 MG TAB PO SCH (21:00)
== END 2019-03-12 13:52 | disposition home or self-care (01) ==
LOC: EC 16:23 → 3SCARD 19:35
PROVIDERS: ADMIT Internal Medicine; ATTEND Internal Medicine
DX: R00.1 Bradycardia, unspecified (principal); R00.2 Palpitations; I42.9 Cardiomyopathy, unspecified; I48.2 Chronic atrial fibrillation; I11.0 Hypertensive heart disease with heart failure; I50.22 Chronic systolic (congestive) heart failure; E78.5 Hyperlipidemia, unspecified; I25.10 Atherosclerotic heart disease of native coronary artery without angina pectoris; G47.33 Obstructive sleep apnea (adult) (pediatric); Z99.89 Dependence on other enabling machines and devices; J44.9 Chronic obstructive pulmonary disease, unspecified; G90.50 Complex regional pain syndrome I, unspecified; Z95.810 Presence of automatic (implantable) cardiac defibrillator; N40.0 Benign prostatic hyperplasia without lower urinary tract symptoms; T44.7X5A Adverse effect of beta-adrenoreceptor antagonists, initial encounter; Z87.891 Personal history of nicotine dependence; Z79.899 Other long term (current) drug therapy; Z79.891 Long term (current) use of opiate analgesic; Z79.51 Long term (current) use of inhaled steroids; Z79.01 Long term (current) use of anticoagulants; Z88.7 Allergy status to serum and vaccine; E66.9 Obesity, unspecified; Z68.32 Body mass index [BMI] 32.0-32.9, adult; Z80.8 Family history of malignant neoplasm of other organs or systems; Z83.2 Family history of diseases of the blood and blood-forming organs and certain disorders involving the immune mechanism; Z82.49 Family history of ischemic heart disease and other diseases of the circulatory system
CPT/HCPCS: 99285; 36415; 94640 ×2; 93005; 83880; 80048 ×2; 84443; 83735; 84484; 85025 ×2; 71100; 71046; G0378 ×2

== ENCOUNTER → 2019-05-12 | Outpatient (CLI) | payer MEDICARE ==
[2019-05-12 17:00] LABS: African American GFR (CKD) 86.2 (60.0-200.0); Anion Gap 10.3 mmol/L (4.00-12.00); Calcium 8.7 mg/dL (8.7-10.3); Carbon Dioxide 23.7 mmol/L (21.6-31.8); Non-African American GFR(CKD) 74.3 (60.0-200.0); Potassium 3.8 mmol/L (3.5-5.5)
== END ==
LOC: LABWHC1 09:30
PROVIDERS: ATTEND Internal Medicine Interventional Cardiology
DX: I10 Essential (primary) hypertension (principal)
CPT/HCPCS: 36415; 80048

== ENCOUNTER → 2020-02-14 | Outpatient (CLI) | payer MEDICARE ==
--- NOTE | 2020-02-14 10:04 | XR ---
Right foot HISTORY: Stage III pressure ulcer 4 views of the right foot Bone mineralization is reduced. Soft tissue swelling is noted at the first digit. Joint spaces and al ignment are maintained. No fracture or dislocation. No evident periostitis. There is a plantar calcan eal spur. Vascular calcifications are noted incidentally. Degenerative change present at the intertar maame joints. IMPRESSION: Soft tissue swelling and additional findings above.
[2020-02-14 10:11] LABS: Basophils % (A) 1 %; Eosinophils # (A) 0.2 k/uL (0-0.7); Eosinophils % (A) 2 %; HCT 43.1 % (39.0-53.0); HGB 13.6 gm/dL (13.0-17.5); Hypochromasia Slight; Lymphocytes # (A) 1.9 k/uL (1.0-4.8); Lymphocytes % (A) 24 %; MCH 29.9 pg (25.0-35.0); MCHC 31.6 g/dL (31.0-37.0); MCV 94.4 fL (80.0-100.0); Mean Platelet Volume 8.4; Monocytes # (A) 0.6 k/uL (0-1.0); Monocytes % (A) 8 %; Neutrophils # (A) 5.1 k/uL (1.3-7.7); Neutrophils % (A) 63 %; Platelet Count 184 k/uL (150-450); RBC 4.56 m/uL (4.30-5.90); RDW 13.9 % (11.5-15.5); WBC 8.1 k/uL (3.8-10.6)
[2020-02-14 18:31] LABS: African American GFR (CKD) 85.6 (60.0-200.0); Albumin 4.3 g/dL (3.80-4.90); Albumin/Globulin Ratio 1.95 (1.60-3.17); Anion Gap 9.2 mmol/L (4.00-12.00); Calcium 8.8 mg/dL (8.7-10.3); Carbon Dioxide 26.8 mmol/L (21.6-31.8); Globulin 2.2 g/dL (1.6-3.3); Non-African American GFR(CKD) 73.8 (60.0-200.0); Total Bilirubin 1.2 mg/dL (0.3-1.2); Total Protein 6.5 g/dL (6.2-8.2)
== END | disposition home or self-care (01) ==
LOC: LABWHC1 08:54
PROVIDERS: ATTEND Podiatrist
DX: M19.071 Primary osteoarthritis, right ankle and foot (principal); L89.893 Pressure ulcer of other site, stage 3
CPT/HCPCS: 36415; 80053; 84134; 85025

== ENCOUNTER 2020-02-19 18:17 | Emergency (ER) | payer MEDICARE ==
[2020-02-19 18:33] VITALS: PULSE 60; RESP 18
[2020-02-19] MEDS ORDERED: SODIUM CHLORIDE 0.9% 1,000 ML IV ONE (19:16)
[2020-02-19] MEDS ORDERED: SODIUM CHLORIDE 0.9% 1,000 ML IV SCH (19:30)
[2020-02-19 20:26] LABS: ALT 14 U/L (4-49); AST 23 U/L (17-59); African American GFR (CKD) >90 (>60 ml/min/1.73 sqM); Alkaline Phosphatase 51 U/L (38-126); Anion Gap 7 mmol/L; Blood Urea Nitrogen 18 mg/dL (9-20); Carbon Dioxide 25 mmol/L (22-30); Chloride 106 mmol/L (98-107); Glucose 100 mg/dL (74-99); Non-African American GFR(CKD) 85 (>60 ml/min/1.73 sqM); Potassium 3.6 mmol/L (3.5-5.1); Sodium 138 mmol/L (137-145); Total Protein 6.9 g/dL (6.3-8.2)
[2020-02-19 20:46] LABS: Basophils # (A) 0.1 k/uL (0-0.2); Basophils % (A) 1 %; Eosinophils # (A) 0.2 k/uL (0-0.7); Eosinophils % (A) 1 %; HCT 41.2 % (39.0-53.0); HGB 13.4 gm/dL (13.0-17.5); Lymphocytes # (A) 1.7 k/uL (1.0-4.8); Lymphocytes % (A) 12 %; MCH 30.1 pg (25.0-35.0); MCHC 32.5 g/dL (31.0-37.0); MCV 92.5 fL (80.0-100.0); Mean Platelet Volume 7.9; Monocytes # (A) 0.9 k/uL (0-1.0); Monocytes % (A) 7 %; Neutrophils # (A) 10.9 k/uL (1.3-7.7); Neutrophils % (A) 78 %; Platelet Count 192 k/uL (150-450); RBC 4.45 m/uL (4.30-5.90); WBC 13.9 k/uL (3.8-10.6)
[2020-02-19] MEDS ORDERED: cefTRIAXone IN SWFI 1,000 MG/10 ML SYRINGE IVP STA (20:53)
--- NOTE | 2020-02-19 21:34 | US ---
EXAMINATION TYPE: US venous doppler duplex LE RT DATE OF EXAM: 02/19/2020 8:41 PM COMPARISON: US 2018 CLINICAL HISTORY: r/o DVT, swelling pain. R/O DVT. Swelling and pain x 1 day. No hx of DVT. Patient t mary Kapoor. SIDE PERFORMED: Right TECHNIQUE: The lower extremity deep venous system is examined utilizing real time linear array sonog hina with graded compression, doppler sonography and color-flow sonography. VESSELS IMAGED: External Iliac Vein (EIV) Common Femoral Vein Deep Femoral Vein Greater Saphenous Vein * Femoral Vein Popliteal Vein Small Saphenous Vein * Proximal Calf Veins (* superficial vessels) Right Leg: No evidence of DVT in veins imaged at this time from popliteal vein to EIV. Limited visib ility of prox calf veins to due edema. Hypoechoic areas with hyperechoic centers and vascular teetee seen within the right groin. #1: 1.6 X 2. 1 X 1.0 cm. #2: 2.7 x 1.7 x 1.3 cm. #3: 3.4 x 3.0 x 1.5 cm. IMPRESSION: No evidence of deep vein thrombosis in the right leg. Inguinal lymph nodes are demonstrated.
[2020-02-19] MEDS ORDERED: CLINDAMYCIN 150 MG CAP PO STA (21:42)
--- NOTE | 2020-02-19 21:43 | ED ---
Lower Extremity Injury HPI - General Chief Complaint: Extremity Injury, Lower Stated Complaint: leg swelling & pain Time Seen by Provider: 02/19/20 18:28 Source: patient Mode of arrival: ambulatory Limitations: no limitations - History of Present Illness Initial Comments: 74yo male presenting today for cc of right leg redness and swelling x 2 days. 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 He state that the toe has been the same but since he has been off his antibiotics for a cellulitis of the same leg. He denies fever, chills, general malaise. He was concerned he possible had blood clot as he saw his foot doctor who told him to come to the ER for evaluation and US. Patient denies additional complaints. But states under no circumstances he may stay the night as he has an impaired child at home to take care of. Patient denies chest pain, SOB. Patient deniess left leg swelling chandler redness, denies coolness pallor or loss sensation of the extremity. - Related Data Home Medications Medication Instructions Recorded Confirmed Furosemide [Lasix] 20 mg PO QAM 02/27/14 03/11/19 Hydrocodone/Acetaminophen [[place] 1 tab PO BID 02/27/14 03/11/19 7.5-325] Losartan Potassium 100 mg PO QAM 02/27/14 03/11/19 Montelukast [Singulair] 10 mg PO HS 02/27/14 03/11/19 Simvastatin [Zocor] 40 mg PO HS 02/27/14 03/11/19 Terazosin [Hytrin] 5 mg PO BID 02/27/14 03/11/19 hydrALAZINE HCL [Apresoline] 50 mg PO TID 02/27/14 03/11/19 Mens Prostate Support 1 tab PO BID 10/31/15 03/11/19 Multivitamins, Thera [Multivitamin 1 tab PO DAILY 10/31/15 03/11/19 (formulary)] Albuterol Nebulized [Ventolin 2.5 mg INHALATION RT-BID 12/11/15 03/11/19 Nebulized] Budesonide/Formoterol Fumarate 2 puff INHALATION RT-BID 12/11/15 03/11/19 [Symbicort 160-4.5 Mcg Inhaler] Rivaroxaban [Xarelto] 15 mg PO DAILY 06/28/18 03/11/19 Cholecalciferol [Vitamin D3 (25 1,000 unit PO HS 03/11/19 03/11/19 Mcg = 1000 Iu)] Coconut Oil 1,000 mg PO BID 03/11/19 03/11/19 Previous Rx's Medication Instructions Recorded Metoprolol Succinate [Toprol Xl] 50 mg PO DAILY #30 tab.er.24h 03/12/19 Clindamycin [Cleocin] 450 mg PO Q8H 7 Days #63 capsule 02/19/20 Allergies Allergy/AdvReac Type Severity Reaction Status Date / Time No Known Allergies Allergy Verified 02/19/20 20:11 Review of Systems ROS Statement: Those systems with pertinent positive or pertinent negative responses have been documented in the HPI. ROS Other: All systems not noted in ROS Statement are negative. Past Medical History Past Medical History: Heart Failure, COPD, Hyperlipidemia, Hypertension, Prostate Disorder, Sleep Apnea/CPAP/BIPAP Additional Past Medical History / Comment(s): REFLEX SYMPATHETIC DYSTROPHY, PACEMAKER /AICD ([employer]TRON[employer]), DENIES EDEMA, USES C-PAP MACHINE, ENLARGED PROSTATE. , . History of Any Multi-Drug Resistant Organisms: None Reported Past Surgical History: AICD, Back Surgery, Pacemaker Additional Past Surgical History / Comment(s): BACK SURGERY X3, ABDOMINAL MASS, UMBILICAL HERNIA SURGERY'S. mass removed from throat Past Anesthesia/Blood Transfusion Reactions: No Reported Reaction Type of Cardiac Device: Permanent Pacemaker, AICD Device Placement Date:: 05/19/2011 Past Psychological History: No Psychological Hx Reported Smoking Status: Former smoker Past Alcohol Use History: None Reported Past Drug Use History: None Reported - Past Family History Brother(s) Family Medical History: Deep Vein Thrombosis (DVT) Father Family Medical History: Cancer Additional Family Medical History / Comment(s): LIP CANCER Mother Additional Family Medical History / Comment(s): anuersym of the brain General Exam - General Exam Comments Initial Comments: General: The patient is awake and alert, in no distress Eye: +3 mm pupils are equal, round and reactive to light, extra-ocular movements are intact. No nystagmus. There is normal conjunctiva bilaterally. No signs of icterus. Ears, nose, mouth and throat: There are moist mucous membranes and no oral lesions. Neck: The neck is supple, there is no tenderness or JVD. Cardiovascular: There is a regular rate and rhythm. No murmur, rub or gallop is appreciated. Respiratory: Lungs are clear to auscultation, respirations are non-labored, breath sounds are equal. No wheezes, stridor, rales, or rhonchi. Gastrointestinal: Soft, non-distended, non-tender abdomen without masses or organomegaly noted. There is no rebound or guarding present. Musculoskeletal: Normal ROM, no tenderness. Strength 5/5. Sensation intact. DP pulses equal bilaterally 2+. Neurological: A&O x 3. CN II-XII intact grossly, There are no obvious motor or sensory deficits. Coordination appears grossly intact. Speech is normal. Skin: Skin is warm and dry and no rashes. Erythema of the left leg up to mid calf, no vesicular lesions, no crepitus. Warm. Psychiatric: Cooperative, appropriate mood & affect, normal judgment. Limitations: no limitations Course Vital Signs 02/19/20 02/19/20 18:30 21:50 Temperature 99.2 F 98.0 F Pulse Rate 60 60 Respiratory 18 18 Rate Blood Pressure 161/79 141/94 O2 Sat by Pulse 95 96 Oximetry Medical Decision Making - Medical Decision Making Mild leukocytosis. No fever. Cellulitis present on exam. US (-) for DVT. Patient case discussed wtih Dr. Kilgore including social circumstance, I recommended patient stay for a night of IV antibiotics. Patient refused. Dr. Kilgore and myelf given patient VS stable he appears nontoxic that patient may trial outpatient oral antibiotics with urgen PCP f/u and strict return parameters. Patient states that is redness spread/worsens he will return immediately and then have time to arrange care for child at home. Patient is agreeable to care plan =, strict return parameters and discharge. - Lab Data Result diagrams: 02/19/20 20:07 02/19/20 20:08 Lab Results 02/19/20 02/19/20 02/19/20 Range/Units 20:07 20:08 20:08 WBC 13.9 H (3.8-10.6) k/uL RBC 4.45 (4.30-5.90) m/uL Hgb 13.4 (13.0-17.5) gm/dL Hct 41.2 (39.0-53.0) % MCV 92.5 (80.0-100.0) fL MCH 30.1 (25.0-35.0) pg MCHC 32.5 (31.0-37.0) g/dL RDW 14.0 (11.5-15.5) % Plt Count 192 (150-450) k/uL Neutrophils % 78 % Lymphocytes % 12 % Monocytes % 7 % Eosinophils % 1 % Basophils % 1 % Neutrophils # 10.9 H (1.3-7.7) k/uL Lymphocytes # 1.7 (1.0-4.8) k/uL Monocytes # 0.9 (0-1.0) k/uL Eosinophils # 0.2 (0-0.7) k/uL Basophils # 0.1 (0-0.2) k/uL Sodium 138 (137-145) mmol/L Potassium 3.6 (3.5-5.1) mmol/L Chloride 106 (98-107) mmol/L Carbon Dioxide 25 (22-30) mmol/L Anion Gap 7 mmol/L BUN 18 (9-20) mg/dL Creatinine 0.89 (0.66-1.25) mg/dL Est GFR (CKD-EPI)AfAm >90 (>60 ml/min/1.73 sqM) Est GFR (CKD-EPI)NonAf 85 (>60 ml/min/1.73 sqM) Glucose 100 H (74-99) mg/dL Plasma Lactic Acid Lj 0.9 (0.7-2.0) mmol/L Calcium 9.0 (8.4-10.2) mg/dL Total Bilirubin 1.0 (0.2-1.3) mg/dL AST 23 (17-59) U/L ALT 14 (4-49) U/L Alkaline Phosphatase 51 (38-126) U/L Total Protein 6.9 (6.3-8.2) g/dL Albumin 4.0 (3.5-5.0) g/dL Disposition Clinical Impression: Cellulitis of right leg, Right leg swelling Disposition: HOME SELF-CARE Condition: Good Instructions (If sedation given, give patient instructions): Cellulitis (ED) Additional Instructions: Please use medication as discussed. Please follow-up with family doctor tomorrow morning for re-evaluation. Please return to emergency room if the symptoms increase or worsen or for any other concerns. Prescriptions: Clindamycin [Cleocin] 450 mg PO Q8H 7 Days #63 capsule Is patient prescribed a controlled substance at d/c from ED?: No Referrals: Candice Freitas MD [Primary Care Provider] - 1-2 days Time of Disposition: 21:43
[2020-02-19 21:56] VITALS: BP 141/94; TEMP 98
== END 2020-02-19 21:55 | disposition home or self-care (01) ==
LOC: EC 18:17
DX: L03.115 Cellulitis of right lower limb (principal); J44.9 Chronic obstructive pulmonary disease, unspecified; E78.5 Hyperlipidemia, unspecified; I11.9 Hypertensive heart disease without heart failure; N40.0 Benign prostatic hyperplasia without lower urinary tract symptoms; I50.9 Heart failure, unspecified; G47.30 Sleep apnea, unspecified; Z79.899 Other long term (current) drug therapy; Z79.01 Long term (current) use of anticoagulants; Z99.89 Dependence on other enabling machines and devices; Z95.5 Presence of coronary angioplasty implant and graft; Z95.810 Presence of automatic (implantable) cardiac defibrillator; Z87.891 Personal history of nicotine dependence
CPT/HCPCS: 36415; 80053; 83605; 85025; 87040; 93971; 99284; 96374; J0696

== ENCOUNTER 2020-04-16 10:53 | Day surgery (SDC) | payer MEDICARE ==
[~2020-04-16 10:53] MED LIST: LACTATED RINGERS 1,000 ML IV SCH; LIDOCAINE 1% (10MG/ML) FOR IV START INTRADERMA PRN
[2020-04-16 11:17] VITALS: TEMP 97.1
[2020-04-16] MEDS ORDERED: LIDOCAINE 1% (10MG/ML) FOR IV START INTRADERMA ONE (11:30)
[2020-04-16] MEDS ORDERED: PROPOFOL 10 MG/ML 20 ML VIAL IV ONE (11:36)
[2020-04-16] MEDS ORDERED: LIDOCAINE 1% INJ 10MG/ML (20 ML MDV) ONE (11:36)
--- NOTE | 2020-04-16 11:40 | P.GSHP ---
History of Present Illness H&P Date: 04/16/20 Chief Complaint: Rectal bleeding Patient here today for colonoscopy. Has had recent rectal bleeding. Some lower abdominal and rectal pressure. Patient is on Xarelto. Bleeding seemed to stop a few days ago. Patient has a history of previous adenomatous polyps. Past Medical History Past Medical History: Heart Failure, COPD, Hyperlipidemia, Hypertension, Prostate Disorder, Sleep Apnea/CPAP/BIPAP Additional Past Medical History / Comment(s): CURRENT: BLOOD IN STOOL. REFLEX SYMPATHETIC DYSTROPHY, PACEMAKER /AICD ([employer]TRON[employer]), DENIES EDEMA, USES C-PAP MACHINE, ENLARGED PROSTATE. History of Any Multi-Drug Resistant Organisms: None Reported Past Surgical History: AICD, Back Surgery, Pacemaker Additional Past Surgical History / Comment(s): BACK SURGERY X3 (HAD WOUND INFECTION AFTER ONE OF HIS BACK SURGERYIES, WAS NOT SURE, IF IT WAS CULTURED. ABDOMINAL MASS REMOVED (NEG). UMBILICAL HERNIA SURGERIES. Mass removed from throat (NEG). BILATERAL CATARACTS. Past Anesthesia/Blood Transfusion Reactions: No Reported Reaction Type of Cardiac Device: Permanent Pacemaker, AICD Device Placement Date:: 05/19/2011 Past Psychological History: No Psychological Hx Reported Smoking Status: Former smoker Past Alcohol Use History: None Reported Additional Past Alcohol Use History / Comment(s): SMOKING FOR 50 YEARS OR MORE, USED TO SMOKE 1 PPD. Past Drug Use History: None Reported Additional Drug Use History / Comment(s): MARIJUANA COOKIES PRN PAIN. - Past Family History Brother(s) Family Medical History: Deep Vein Thrombosis (DVT) Father Family Medical History: Cancer Additional Family Medical History / Comment(s): LIP CANCER Mother Additional Family Medical History / Comment(s): anuersym of the brain Medications and Allergies Home Medications Medication Instructions Recorded Confirmed Type Furosemide [Lasix] 20 mg PO QAM 02/27/14 04/12/20 History Hydrocodone/Acetaminophen [[place] 1 tab PO BID 02/27/14 04/12/20 History 7.5-325] Losartan Potassium 100 mg PO QAM 02/27/14 04/12/20 History Montelukast [Singulair] 10 mg PO HS 02/27/14 04/12/20 History Simvastatin [Zocor] 40 mg PO HS 02/27/14 04/12/20 History Terazosin [Hytrin] 5 mg PO BID 02/27/14 04/12/20 History hydrALAZINE HCL [Apresoline] 50 mg PO TID 02/27/14 04/12/20 History Mens Prostate Support 1 tab PO BID 10/31/15 04/12/20 History Multivitamins, Thera [Multivitamin 1 tab PO DAILY 10/31/15 04/12/20 History (formulary)] Albuterol Nebulized [Ventolin 2.5 mg INHALATION RT-BID 12/11/15 04/12/20 History Nebulized] Budesonide/Formoterol Fumarate 2 puff INHALATION RT-BID 12/11/15 04/12/20 History [Symbicort 160-4.5 Mcg Inhaler] Rivaroxaban [Xarelto] 15 mg PO DAILY 06/28/18 04/12/20 History Cholecalciferol [Vitamin D3 (25 1,000 unit PO HS 03/11/19 04/12/20 History Mcg = 1000 Iu)] Metoprolol Succinate [Toprol Xl] 50 mg PO QAM 04/12/20 04/12/20 History Allergies Allergy/AdvReac Type Severity Reaction Status Date / Time clindamycin [From Cleocin] Allergy THROAT Verified 04/16/20 11:11 SWELLING. Surgical - Exam Vital Signs Temp Pulse Resp BP Pulse Ox 97.1 F L 68 16 160/79 100 04/16/20 11:15 04/16/20 11:15 04/16/20 11:15 04/16/20 11:15 04/16/20 11:15 Physical exam: General: Well-developed, well-nourished HEENT: Normocephalic, sclerae nonicteric Abdomen: Nontender, nondistended Extremities: No edema Neuro: Alert and oriented Assessment and Plan (1) Rectal bleeding Narrative/Plan: Will proceed with colonoscopy Current Visit: Yes Status: Acute Code(s): K62.5 - HEMORRHAGE OF ANUS AND RECTUM SNOMED Code(s): 61646859
--- NOTE | 2020-04-16 12:01 | P.PCN ---
Date of Procedure: 04/16/20 Procedure(s) Performed: PREOPERATIVE DIAGNOSIS: Rectal bleeding POSTOPERATIVE DIAGNOSIS: Diverticulosis, small descending colon polyp, hemorrhoids PROCEDURE: Colonoscopy with snare polypectomy ANESTHESIA: MAC SURGEON: Lucas Swain M.D. SPECIMENS: Descending colon polyp ENDOSCOPIC PROCEDURE: The patient was placed on the endoscopy table in the left decubitus position. The Olympus colonoscope was inserted into the anus and passed under direct visualization to the base of the cecum. The appendiceal o rifice was visualized. From that point the scope was slowly withdrawn inspecting all surfaces carefully. There were no neoplastic inflammatory or polypoid lesions throughout the cecum, ascending, and transverse colon. In the descending colon a small polyp was seen and removed using the snare with cautery technique. The remainder of the descending sigmoid and rectum are free of any neoplastic or polypoid lesions. The patient had extensive diverticulosis involving the sigmoid colon. At the anus the patient had prominent internal and external hemorrhoids any evidence of recent or active bleeding. There was no blood throughout the colon. The patient was taken to the recovery room in stable condition per anesthesia guidelines. RECOMMENDATIONS: Await biopsy results. Follow-up colonoscopy 5 years. Site of bleeding unclear may have been diverticular or related to hemorrhoids. Certainly exacerbated by underlying Xarelto use. May resume anticoagulation 24 hours.
[2020-04-16 12:42] VITALS: BP 167/85; PULSE 59; RESP 20
== END 2020-04-16 12:30 | disposition home or self-care (01) ==
LOC: ORWHC2ENDO 10:53
PROVIDERS: ATTEND Surgery
DX: D12.4 Benign neoplasm of descending colon (principal); K57.31 Diverticulosis of large intestine without perforation or abscess with bleeding; K64.8 Other hemorrhoids; K64.4 Residual hemorrhoidal skin tags; I11.0 Hypertensive heart disease with heart failure; I50.9 Heart failure, unspecified; J44.9 Chronic obstructive pulmonary disease, unspecified; E78.5 Hyperlipidemia, unspecified; N40.0 Benign prostatic hyperplasia without lower urinary tract symptoms; G90.50 Complex regional pain syndrome I, unspecified; I48.91 Unspecified atrial fibrillation; G47.33 Obstructive sleep apnea (adult) (pediatric); Z79.01 Long term (current) use of anticoagulants; Z99.89 Dependence on other enabling machines and devices; Z95.810 Presence of automatic (implantable) cardiac defibrillator; Z98.890 Other specified postprocedural states; Z86.19 Personal history of other infectious and parasitic diseases; Z87.19 Personal history of other diseases of the digestive system; Z98.41 Cataract extraction status, right eye; Z98.42 Cataract extraction status, left eye; Z87.891 Personal history of nicotine dependence; Z79.899 Other long term (current) drug therapy; Z79.891 Long term (current) use of opiate analgesic; Z79.51 Long term (current) use of inhaled steroids; Z88.1 Allergy status to other antibiotic agents; Z97.2 Presence of dental prosthetic device (complete) (partial); Z82.49 Family history of ischemic heart disease and other diseases of the circulatory system; Z80.8 Family history of malignant neoplasm of other organs or systems
CPT/HCPCS: 88305; 45385; J2001; J2704

== ENCOUNTER → 2020-06-24 | Outpatient (CLI) | payer MEDICARE ==
--- NOTE | 2020-06-25 07:42 | CT ---
CT CHEST FOR PULMONARY EMBOLISM. EXAMINATION TYPE: CT angio chest DATE OF EXAM: 06/24/2020 INDICATION: followup known thoracic aortic aneurysm CT DLP: 1323 mGycm, Automated exposure control for dose reduction was used. CONTRAST: Patient injected with 100 mL of Isovue 370. COMPARISON: 01/17/2016 TECHNIQUE: CT of the chest is performed on a spiral scan at 2 mm thick sections. Study is performed with intravenous contrast timed for evaluation for the aorta. This will limit additional portions of the evaluation. 3-D MIP images reconstructed by the technologist are reviewed on the computer in th e coronal and sagittal planes. FINDINGS: There is a three-vessel arch. Descending thoracic aorta at the aortic root measures 3.4 cm. The aorta at the level of main pulmonary artery measures 3.9 cm. Transverse dimension of the aortic arch is 3. 4 cm. The aorta at the diaphragm measures 3.5 cm. No mediastinal or hilar adenopathy enlarged by CT criteria is evident. The ascending aorta diameter at the level of the main pulmonary artery is 3. cm. The main pulmonary artery diameter at the bifurc ation is 3.3 cm. Lung windows are clear. Thyroid is slightly heterogenous and have masses in the lower poles bilaterally. This appears to been present previously. This can be further evaluated with ultrasound. Limited CT section through the upper abdomen are unremarkable. IMPRESSIONS: 1. Ascending thoracic aortic fusiform prominence with an AP diameter of 3.9 cm. This is stable from 2 016. 2. Heterogenous thyroid lower pole masses. This could be further evaluated with ultrasound
== END | disposition home or self-care (01) ==
LOC: RADCTMAIN 15:27
PROVIDERS: ATTEND Internal Medicine Interventional Cardiology
DX: I71.2 Thoracic aortic aneurysm, without rupture (principal); R22.1 Localized swelling, mass and lump, neck; Z88.1 Allergy status to other antibiotic agents
CPT/HCPCS: 82565; 84520; 71275; 36415; Q9967

== ENCOUNTER → 2020-08-13 | Outpatient (CLI) | payer MEDICARE ==
--- NOTE | 2020-08-13 10:06 | US ---
EXAMINATION TYPE: US venous doppler duplex LE LT DATE OF EXAM: 08/13/2020 9:30 AM COMPARISON: US CLINICAL HISTORY: R23.3 SPONTANEOUS BRUISING. Pt states bruising of left leg, pt on Xarelto x 1 year/ No known prior DVT SIDE PERFORMED: Left TECHNIQUE: The lower extremity deep venous system is examined utilizing real time linear array sonog hina with graded compression, doppler sonography and color-flow sonography. VESSELS IMAGED: Common Femoral Vein Deep Femoral Vein Greater Saphenous Vein * Femoral Vein Popliteal Vein Small Saphenous Vein * Proximal Calf Veins (* superficial vessels) Left Leg: Negative for DVT Attempted to call physician at time of exam, no answer IMPRESSION: 1. Left lower extremity ultrasound negative for deep venous thrombosis.
== END | disposition home or self-care (01) ==
LOC: RADUSWWP 09:12
PROVIDERS: ATTEND Internal Medicine
DX: R23.3 Spontaneous ecchymoses (principal)

== ENCOUNTER → 2020-10-14 | Outpatient (CLI) | payer MEDICARE ==
--- NOTE | 2020-10-14 15:44 | CT ---
EXAMINATION TYPE: CT sinus wo con DATE OF EXAM: 10/14/2020 COMPARISON: None HISTORY: Chronic sinusitis. Lt side worse. No prior. Ordering physician is requesting CT not be zac d by Dr. Hendricks-see order. CT DLP: 520.30 mGycm CONTRAST: 0 mL of Isovue 300 The paranasal sinuses are examined in the axial plane at 2 mm thick sections. Reconstructed images i n the coronal plane were obtained. Small partial septations within the inferior maxillary sinuses are present. The maxillary sinuses are clear. Very minimal mucosal thickenings within ethmoid air cells. No air-f luid levels are evident. The sphenoid sinuses are clear. The frontal sinuses are clear. The septum is evaluated. There is septal deviation to the right. The ostiomeatal units are patent. IMPRESSIONS: 1. No suspicious acute or significant chronic changes to suggest sinusitis. 2. Septal deviation
== END | disposition home or self-care (01) ==
LOC: RADCTMAIN 15:16
PROVIDERS: ATTEND Otolaryngology
DX: J34.2 Deviated nasal septum (principal)
CPT/HCPCS: 70486

== ENCOUNTER → 2021-01-15 | Outpatient (CLI) | payer MEDICARE | END | disposition home or self-care (01) | LOC: LABWHC1 08:26 | PROVIDERS: ATTEND Internal Medicine | DX: Z20.822 Contact with and (suspected) exposure to COVID-19 (principal); R05 Cough; R50.9 Fever, unspecified | CPT/HCPCS: U0003; C9803; U0005 ==

== ENCOUNTER → 2021-01-31 | Outpatient (CLI) | payer MEDICARE ==
[2021-01-31 14:39] LABS: Basophils # (A) 0.06 X 10*3/uL (0.00-0.10); Basophils % (A) 0.6 %; Eosinophils # (A) 0.18 X 10*3/uL (0.04-0.35); Eosinophils % (A) 1.7 %; HCT 44.5 % (39.6-50.0); HGB 13.7 g/dL (13.0-17.0); Lymphocytes # (A) 1.84 X 10*3/uL (0.90-5.00); Lymphocytes % (A) 17.2 %; MCH 29.3 pg (27.0-32.0); MCHC 30.8 g/dL (32.0-37.0); MCV 95.3 fL (80.0-97.0); Mean Platelet Volume 11.1 fL (9.5-12.2); Monocytes # (A) 1.03 X 10*3/uL (0.20-1.00); Monocytes % (A) 9.6 %; Neutrophils # (A) 7.57 X 10*3/uL (1.80-7.70); Neutrophils % (A) 70.5 %; Platelet Count 189 X 10*3/uL (140-440); RBC 4.67 X 10*6/uL (4.40-5.60); RDW 15.6 % (11.5-14.5); WBC 10.72 X 10*3/uL (4.50-10.00)
[2021-02-01 07:35] LABS: African American GFR (CKD) 75.7 (60.0-200.0); Albumin 3.7 g/dL (3.80-4.90); Albumin/Globulin Ratio 1.85 (1.60-3.17); Anion Gap 12.6 mmol/L (4.00-12.00); BUN/Creat Ratio 19.09 Ratio (12.00-20.00); Calcium 9.2 mg/dL (8.7-10.3); Carbon Dioxide 24.4 mmol/L (21.6-31.8); Chol/HDL Ratio 2.16; LDL Cholesterol,Calculated 41.8 mg/dL (0.0-131.0); Non-African American GFR(CKD) 65.3 (60.0-200.0); PSA Annual Screen 0.3 ng/mL (0.0-4.0); Potassium 3.7 mmol/L (3.5-5.5); Total Bilirubin 1.2 mg/dL (0.2-1.2); Total Protein 5.7 g/dL (6.2-8.2); VLDL Calculation 10.2 mg/dL (5.00-40.00)
== END | disposition home or self-care (01) ==
LOC: LABWHC1 08:52
PROVIDERS: ATTEND Internal Medicine
DX: Z00.01 Encounter for general adult medical examination with abnormal findings (principal); Z12.5 Encounter for screening for malignant neoplasm of prostate; E78.00 Pure hypercholesterolemia, unspecified; E55.9 Vitamin D deficiency, unspecified; I10 Essential (primary) hypertension
CPT/HCPCS: 80061; 80053; 85025; 82306; 36415; G0103

== ENCOUNTER → 2021-05-28 | Outpatient (CLI) | payer MEDICARE ==
--- NOTE | 2021-05-28 14:43 | XR ---
Lumbosacral spine HISTORY: Sciatica, [id number] SCIATICA RT 5 views of the lumbosacral spine correlated to prior exam 07/29/2016 there is no significant interval change. Postop changes are noted status post laminectomies at L3, L4 and L5. There is multilevel spo ndylosis. Bone mineralization is reduced. There is no evidence spondylolysis. Minimal retrolisthesis grade 1 L4-5. Loss of disc height is present at the intervertebral levels, vacuum phenomenon present at L4-5. Sclerosis is present in the posterior elements. Atherosclerotic vascular calcifications pres ent, aortic aneurysm is present. IMPRESSION: Degenerative disc disease, facet arthropathy, postop changes, osteopenia and abdominal ao rtic aneurysm. Spondylolisthesis.
== END | disposition home or self-care (01) ==
LOC: RADXRYALE 10:47
PROVIDERS: ATTEND Internal Medicine
DX: M51.16 Intervertebral disc disorders with radiculopathy, lumbar region (principal); M43.16 Spondylolisthesis, lumbar region; M47.26 Other spondylosis with radiculopathy, lumbar region
CPT/HCPCS: 72110

== ENCOUNTER → 2021-06-17 | Outpatient (CLI) | payer MEDICARE ==
[2021-06-17 09:53] LABS: African American GFR (CKD) >90 (>60 ml/min/1.73 sqM); Blood Urea Nitrogen 23 mg/dL (9-20); Non-African American GFR(CKD) 82 (>60 ml/min/1.73 sqM)
--- NOTE | 2021-06-17 12:05 | CT ---
EXAMINATION TYPE: CT lumbar spine w con DATE OF EXAM: 06/17/2021 COMPARISON: CT 04/13/2013, plain film 05/28/2021 HISTORY: Post laminectomy syndrome CT DLP: 949 mGycm Automated exposure control for dose reduction was used. CONTRAST: CT scan of the lumbar is performed with IV Contrast, patient injected with 100 ml mL of Isovue [address] of the lumbar spine was performed. Bone and soft tissue window settings are submitted as well as coronal and sagittal reconstructions. FINDINGS: Abdominal aorta is ectatic, possibly aneurysmal, entire abdominal aorta is not included on the exam. Cortical cyst is associated with the left kidney which is incompletely visualized. There is multilevel spondylosis. Loss of disc height is present at intervertebral levels especially L 5-S1 and L4-L5, there is associated vacuum phenomenon L4-5. Lumbar vertebral bodies show preserved he ight and alignment. Laminectomy change is present posterior to L5 and L4. L1-L2: Circumferential extension of endplate disc complex causes anterior mass effect on the thecal s ac. No definite foraminal encroachment. There is some mild spinal stenosis suspected. L2-L3: Posterior extension endplate disc complex causes anterior mass effect on the thecal sac, is ca lcification along the posterior margin of the disc. Circumferential extension of endplate disc comple x encroaches upon the foramina bilaterally left greater than right. Hypertrophic changes of the facet s encroaches upon the lateral recesses, there is some mild to moderate spinal stenosis suspected. L3-L4: Posterior extension endplate disc complex causes anterior mass effect on the thecal sac. There are hypertrophic changes present at the facets, calcified ligamentum flavum suspected on the left ca using lateral mass effect on the thecal sac, hypertrophic change of the ligamentum flavum also presen t on the right causing some local mass effect. Circumferential extension of endplate disc complex cau ses bilateral foraminal encroachment combined with the facet arthropathy, hypertrophic change. There is encroachment on the lateral recesses. L4-L5: No significant disc herniation. Circumferential extension endplate disc complex extends to enc beltran upon the foramina. There is facet arthropathy change present. L5-S1: There is facet arthropathy change present, possibly encroachment on the lateral recess on the left. No evident disc herniation or spinal stenosis. Circumferential extension of endplate causes guille e foraminal encroachment bilaterally. IMPRESSION: Degenerative disc disease and facet arthropathy, postop changes. Multilevel foraminal encroachment, s reji stenosis. Probable aortic aneurysm, consider dedicated imaging.
== END | disposition home or self-care (01) ==
LOC: RADCTMAIN 08:38
PROVIDERS: ATTEND Internal Medicine
DX: M51.36 Other intervertebral disc degeneration, lumbar region (principal); M48.061 Spinal stenosis, lumbar region without neurogenic claudication; M47.816 Spondylosis without myelopathy or radiculopathy, lumbar region
CPT/HCPCS: 82565; 84520; 72132; 36415; Q9967

== ENCOUNTER → 2021-07-11 | Outpatient (CLI) | payer MEDICARE ==
[2021-07-11 13:22] LABS: African American GFR (CKD) >90 (>60 ml/min/1.73 sqM); Blood Urea Nitrogen 22 mg/dL (9-20); Non-African American GFR(CKD) 86 (>60 ml/min/1.73 sqM)
--- NOTE | 2021-07-11 14:12 | CT ---
EXAMINATION TYPE: CT abdomen w con DATE OF EXAM: 07/11/2021 COMPARISON: 02/18/2028 HISTORY: Abdominal aortic aneurysm. CT DLP: 1626 mGycm Automated exposure control for dose reduction was used. TECHNIQUE: Helical acquisition of images was performed from the lung bases through the top of iliac crest to include entire abdomen. CONTRAST: Performed without Oral Contrast and with IV Contrast, patient injected with 100 mL of Isovue M300. FINDINGS: LUNG BASES: The heart is markedly enlarged and there is a cardiac lead. Subsegmental changes involvin g the lung bases most typical atelectasis. LIVER/GB: Liver slightly reduced attenuation is suggestive of hepatic steatosis. Tiny gallstone is se en. PANCREAS: No significant abnormality is seen. SPLEEN: No significant abnormality is seen. ADRENALS: A lateral adrenal gland thickening or subtle nodularity to small to characterize. KIDNEYS: No hydronephrosis or nephrolithiasis. There is a lesion measuring 3.5 cm left upper pole umesh suring 10 Hounsfield units compatible with a simple cyst. BOWEL: No significant abnormality is seen. LYMPH NODES: There is a nonspecific periaortic 1 cm area of pathologic lymph node. OSSEOUS STRUCTURES: There are postsurgical changes with multilevel degenerative disc disease. Lucenc y involving the right iliac bone likely postsurgical. FREE AIR: No free air is visualized. 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 There is a infrarenal abdominal aortic aneurysm measuring 3.7 cm which terminates prior to the aortic bifurcation. No evid ence of dissection. Atherosclerotic changes noted including involvement of the mesenteric vasculature , renal arteries and additional branch vessels. Ectasia of the visualized iliac arteries. IMPRESSION: 1. There is a 3.7 cm infrarenal abdominal aortic aneurysm. 2. There is a gallstone with slight ill-definition of the gallbladder wall recommend correlation with ultrasound if there is concern for right upper quadrant pain or cholecystitis, gallstones 3. Marked cardiomegaly. 4. Simple Left renal cyst
== END | disposition home or self-care (01) ==
LOC: RADCTMAIN 12:43
PROVIDERS: ATTEND Internal Medicine
DX: I71.4 Abdominal aortic aneurysm, without rupture (principal); K80.20 Calculus of gallbladder without cholecystitis without obstruction; N28.1 Cyst of kidney, acquired; I51.7 Cardiomegaly
CPT/HCPCS: 82565; 84520; 74160; 36415; Q9967

== ENCOUNTER → 2021-08-08 | Outpatient (CLI) | payer MEDICARE ==
--- NOTE | 2021-08-08 08:51 | US ---
EXAMINATION TYPE: US abdomen complete DATE OF EXAM: 08/08/2021 COMPARISON: NONE CLINICAL HISTORY: K80.20 Calculus of gallbladder. EXAM MEASUREMENTS: Liver Length: 20.3 cm Gallbladder Wall: 0.3- 1.2 cm CBD: 0.5 cm Spleen: 10.7 cm Right Kidney: 12.5x7.0x5.4 cm Left Kidney: 13.0x5.4x6.2 cm Pancreas: wnl Liver: Increased attenuation Gallbladder: Multiple Small stones, Wall thickened only in the neck area Evidence for sonographic Mcneill's sign: No CBD: wnl Spleen: wnl Right Kidney: wnl Left Kidney: Superior / Medial cyst 4.2x4.4x3.6cm Upper IVC: wnl Abd Aorta: AAA Distal 3.7x3.8cm IMPRESSION: 1. Cholelithiasis. 2. Some focal thickening of the gallbladder wall near the neck of the gallbladder is present. Short-t erm follow-up can be performed. Correlate for acute cholecystitis. 3. Left renal cyst. 4. Fusiform prominence distal abdominal aorta maximum diameter 3.8 cm.
== END | disposition home or self-care (01) ==
LOC: RADUSWWP 08:06
PROVIDERS: ATTEND Internal Medicine
DX: K80.20 Calculus of gallbladder without cholecystitis without obstruction (principal); N28.1 Cyst of kidney, acquired
CPT/HCPCS: 76700

== ENCOUNTER 2021-12-26 16:59 | Emergency (ER) | payer MEDICARE ==
[2021-12-26 17:04] VITALS: BP 172/91; PULSE 75; RESP 20; TEMP 97.8
--- NOTE | 2021-12-26 19:48 | US ---
EXAMINATION TYPE: US venous doppler duplex LE LT DATE OF EXAM: 12/26/2021 7:32 PM COMPARISON: NONE CLINICAL HISTORY: Sent by PCP pain for 2 months. fall 2 months ago, h/o cellulitis, hard left calf, n o h/o dvt SIDE PERFORMED: Left TECHNIQUE: The lower extremity deep venous system is examined utilizing real time linear array sonog hina with graded compression, doppler sonography and color-flow sonography. VESSELS IMAGED: Common Femoral Vein Deep Femoral Vein Greater Saphenous Vein * Femoral Vein Popliteal Vein Small Saphenous Vein * Proximal Calf Veins (* superficial vessels) Left Leg: Negative for DVT IMPRESSION: No evidence of deep vein thrombosis in the left leg.
--- NOTE | 2021-12-26 21:53 | ED ---
Extremity Problem HPI - General Chief complaint: Extremity Problem,Nontraumatic Stated complaint: poss lt leg DVT Time Seen by Provider: 12/26/21 21:04 Source: patient Mode of arrival: ambulatory Limitations: no limitations - History of Present Illness Initial comments: Patient is a 76-year-old male presenting with chief complaint of left leg swelling. Patient states that 2 months ago he injured his left lower leg, which resulted in a case of cellulitis. 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 Means. He completed 2 rounds of Bactrim and his symptoms have resolved. Patient states that lately the left lower leg between the knee and ankle (knee and ankle are unaffected) has felt "hard" and swollen. He states that it is not necessarily painful, just uncomfortable. He was seen by Dr. Means today who instructed him to report to the ER to rule out a DVT. Patient arrived with a prescription for such. Patient states that he has full range of motion of the leg, and his sensation is not changed from baseline, patient states that he has a nerve disorder which causes sensory issues. He denies fever, chills, nausea, vomiting, abdominal pain, headache, neck pain or stiffness, new wound or discharge, injury or trauma, diarrhea, back pain, radiation of pain up the leg or into the foot. - Related Data Home Medications Medication Instructions Recorded Confirmed Furosemide [Lasix] 20 mg PO QAM 02/27/14 04/12/20 Hydrocodone/Acetaminophen [[place] 1 tab PO BID 02/27/14 04/12/20 7.5-325] Losartan Potassium 100 mg PO QAM 02/27/14 04/12/20 Montelukast [Singulair] 10 mg PO HS 02/27/14 04/12/20 Simvastatin [Zocor] 40 mg PO HS 02/27/14 04/12/20 Terazosin [Hytrin] 5 mg PO BID 02/27/14 04/12/20 hydrALAZINE HCL [Apresoline] 50 mg PO TID 02/27/14 04/12/20 Mens Prostate Support 1 tab PO BID 10/31/15 04/12/20 Multivitamins, Thera [Multivitamin 1 tab PO DAILY 10/31/15 04/12/20 (formulary)] Albuterol Nebulized [Ventolin 2.5 mg INHALATION RT-BID 12/11/15 04/12/20 Nebulized] Budesonide/Formoterol Fumarate 2 puff INHALATION RT-BID 12/11/15 04/12/20 [Symbicort 160-4.5 Mcg Inhaler] Rivaroxaban [Xarelto] 15 mg PO DAILY 06/28/18 04/12/20 Cholecalciferol [Vitamin D3 (25 1,000 unit PO HS 03/11/19 04/12/20 Mcg = 1000 Iu)] Metoprolol Succinate [Toprol Xl] 50 mg PO QAM 04/12/20 04/12/20 Allergies Allergy/AdvReac Type Severity Reaction Status Date / Time clindamycin [From Cleocin] Allergy THROAT Verified 12/26/21 17:04 SWELLING. Review of Systems ROS Statement: Those systems with pertinent positive or pertinent negative responses have been documented in the HPI. ROS Other: All systems not noted in ROS Statement are negative. Past Medical History Past Medical History: Atrial Fibrillation, COPD, Hypertension Additional Past Medical History / Comment(s): REFLEX SYMPATHETIC DYSTROPHY, PACEMAKER /AICD ([employer]), DENIES EDEMA, USES C-PAP MACHINE, ENLARGED PROSTATE. , . History of Any Multi-Drug Resistant Organisms: None Reported Past Surgical History: AICD, Back Surgery, Pacemaker Additional Past Surgical History / Comment(s): BACK SURGERY X3, ABDOMINAL MASS, UMBILICAL HERNIA SURGERY'S. mass removed from throat Past Anesthesia/Blood Transfusion Reactions: No Reported Reaction Type of Cardiac Device: Permanent Pacemaker, AICD Device Placement Date:: 05/19/2011 Past Psychological History: No Psychological Hx Reported Smoking Status: Never smoker Past Alcohol Use History: None Reported Past Drug Use History: None Reported - Past Family History Brother(s) Family Medical History: Deep Vein Thrombosis (DVT) Father Family Medical History: Cancer Additional Family Medical History / Comment(s): LIP CANCER Mother Additional Family Medical History / Comment(s): anuersym of the brain General Exam Limitations: no limitations General appearance: alert, in no apparent distress Head exam: Present: atraumatic, normocephalic, normal inspection Eye exam: Present: normal appearance, EOMI. Absent: scleral icterus Respiratory exam: Present: normal lung sounds bilaterally. Absent: respiratory distress, wheezes, rales, rhonchi, stridor Cardiovascular Exam: Present: regular rate, normal rhythm, normal heart sounds. Absent: systolic murmur, diastolic murmur, rubs, gallop, clicks Left Knee exam: Present: normal inspection, full ROM. Absent: tenderness, swelling Lower Leg exam: Present: full ROM, swelling (feels "hard"). Absent: tenderness, laceration, ecchymosis, deformity Ankle exam: Present: normal inspection, full ROM. Absent: tenderness, swelling Foot/Toe exam: Present: normal inspection, full ROM. Absent: tenderness, swelling Neurovascular tendon exam: Present: no vascular compromise (Posterior tibial and pedal pulses palpated, good capillary refill). Absent: extremity cold to touch Neurological exam: Present: alert, oriented X3, CN II-XII intact Psychiatric exam: Present: normal affect, normal mood Skin exam: Present: warm, dry, intact, normal color. Absent: rash Course Vital Signs 12/26/21 17:02 Temperature 97.8 F Pulse Rate 75 Respiratory 20 Rate Blood Pressure 172/91 O2 Sat by Pulse 96 Oximetry Medical Decision Making - Medical Decision Making Patient is a 76-year-old male presenting for evaluation of left lower leg swelling. Patient states that lately his leg has felt "hard" and swollen. Patient had a recent episode of cellulitis and completed 2 rounds of Bactrim, he is following with Dr. Means, sees him on a weekly basis. Today Dr. Means instructed him to report to the ER to rule out DVT. On examination patient is afebrile with regular heart rate. Left leg has full range of motion, pulses are palpable, sensation is intact. The leg does feel somewhat more firm on the right side. No pain on palpation. No wounds or evidence of trauma. Doppler study was negative for DVT. Patient states that he has an appointment with his PCP this week, and another appointment with Dr. Means next week. Patient has good outpatient follow-up. He appears stable for discharge at this time. I emphasized the importance of follow-up with Dr. Means and his PCP. I counseled him on return parameters and answered all questions. Report back to ER if any worsening symptoms. Patient conveyed verbal understanding and agreed to the plan. Disposition Clinical Impression: Edema of lower extremity Disposition: HOME SELF-CARE Condition: Good Instructions (If sedation given, give patient instructions): Leg Edema (ED) Additional Instructions: Follow-up with Dr. Means and your primary care this week. Report back to ER with any worsening symptoms. Is patient prescribed a controlled substance at d/c from ED?: No Referrals: Candice Freitas MD [Primary Care Provider] - 1-2 days Jesús Means DPM [STAFF PHYSICIAN] - 1-2 days Time of Disposition: 21:52
== END 2021-12-26 21:59 | disposition home or self-care (01) ==
LOC: EC 16:59
DX: R60.0 Localized edema (principal); I10 Essential (primary) hypertension; J44.9 Chronic obstructive pulmonary disease, unspecified; I48.91 Unspecified atrial fibrillation; Z79.01 Long term (current) use of anticoagulants; Z79.51 Long term (current) use of inhaled steroids; Z79.899 Other long term (current) drug therapy
CPT/HCPCS: 99283

== ENCOUNTER → 2022-01-05 | Outpatient (CLI) | payer MEDICARE ==
[2022-01-05 14:42] LABS: Basophils # (A) 0.06 X 10*3/uL (0.00-0.10); Basophils % (A) 0.6 %; Eosinophils # (A) 0.19 X 10*3/uL (0.04-0.35); Eosinophils % (A) 1.9 %; HCT 43.1 % (39.6-50.0); HGB 13.5 g/dL (13.0-17.0); Immature Grans, Automated 0.3 %; Lymphocytes # (A) 1.51 X 10*3/uL (0.90-5.00); Lymphocytes % (A) 15.3 %; MCH 30.6 pg (27.0-32.0); MCHC 31.3 g/dL (32.0-37.0); MCV 97.7 fL (80.0-97.0); Mean Platelet Volume 11.1 fL (9.5-12.2); Monocytes % (A) 10.1 %; NRBC Per 100 WBC 0 /100 WBCS (0.0-0.0); Neutrophils % (A) 71.8 %; Platelet Count 202 X 10*3/uL (140-440); RBC 4.41 X 10*6/uL (4.40-5.60); RDW 13.7 % (11.5-14.5); WBC 9.89 X 10*3/uL (4.50-10.00)
[2022-01-05 18:38] LABS: ALT 15 U/L (10-49); AST 24 U/L (14-35); African American GFR (CKD) 84.4 (60.0-200.0); Albumin 4.1 g/dL (3.8-4.9); Albumin/Globulin Ratio 1.52 (1.60-3.17); Alkaline Phosphatase 53 U/L (41-126); Blood Urea Nitrogen 21.1 mg/dL (9.0-27.0); Calcium 9.1 mg/dL (8.7-10.3); Carbon Dioxide 24.5 mmol/L (20.0-27.5); Chloride 106 mmol/L (96-109); Chol/HDL Ratio 3.11 Ratio; Globulin 2.7 g/dL (1.6-3.3); Glucose 112 mg/dL (70-110); LDL Cholesterol,Calculated 61.6 mg/dL (0.0-131.0); Non-African American GFR(CKD) 72.8 (60.0-200.0); Potassium 3.4 mmol/L (3.5-5.5); Sodium 144 mmol/L (135-145); Total Protein 6.8 g/dL (6.2-8.2); VLDL Calculation 19.14 mg/dL (5.00-40.00)
== END | disposition home or self-care (01) ==
LOC: LABWHC1 08:58
PROVIDERS: ATTEND Internal Medicine
DX: I10 Essential (primary) hypertension (principal); E78.00 Pure hypercholesterolemia, unspecified; E55.9 Vitamin D deficiency, unspecified
CPT/HCPCS: 36415; 80053; 80061; 82306; 85025

== ENCOUNTER → 2022-01-20 | Outpatient (CLI) | payer MEDICARE | END | disposition home or self-care (01) | LOC: LABWHC1 10:11 | PROVIDERS: ATTEND Otolaryngology | DX: J30.89 Other allergic rhinitis (principal) | CPT/HCPCS: 36415 ==

== ENCOUNTER → 2022-02-04 | Outpatient (CLI) | payer MEDICARE ==
--- NOTE | 2022-02-05 12:19 | US ---
EXAMINATION TYPE: US thyroid st tissue head/neck DATE OF EXAM: 02/04/2022 COMPARISON: CLINICAL HISTORY: E04.1 NONTOXIC SINGLE THYROID NODULE. Patient states having a thyroid biopsy x 20 y ears ago GLAND SIZE: Right Lobe: 4.4 x 1.6 x 2.1 cm Overall Parenchyma: heterogenous Left Lobe: 3.7 x 2.4 x 2.6 cm Overall Parenchyma: heterogeneous Isthmus Thickness: 0.6 cm NODULES RIGHT: # of nodules measured on right: 2 1. 1.8 X 1.4 x 1.7 cm, lower mid, solid or almost completely solid, isoechoic nodule, which is wide r than tall, with smooth margins, without echogenic foci. TR 3 Prior size: No prior 2. 0.8 X 0.7 x 0.6 cm, upper mid, mixed cystic and solid, hypoechoic nodule, which is wider than ta ll, with smooth margins, without echogenic foci. Prior size: No prior LEFT: # of nodules measured on left: 1 1. 2.7 X 2.1 x 2.0 cm, lower mid, solid or almost completely solid, hypoechoic nodule, which is wi chuy than tall, with smooth margins, without echogenic foci. TR 4. Prior size: No prior ISTHMUS: # of nodules measured in the isthmus: 0 Bilateral neck scanned, no evidence of lymphadenopathy. IMPRESSION: 1. Moderately suspicious nodule left lobe thyroid. Biopsy is recommended. 2. In the absence of suspicious biopsy results, follow-up sound in 1 year is recommended. 2017 ACR TI-RADS LEVEL: *Highest TI-RADS level nodule reported
== END | disposition home or self-care (01) ==
LOC: RADUSWWP 16:16
PROVIDERS: ATTEND Internal Medicine
DX: E04.1 Nontoxic single thyroid nodule (principal)
CPT/HCPCS: 76536

== ENCOUNTER 2022-03-11 12:57 | Day surgery (SDC) | payer MEDICARE ==
--- NOTE | 2022-03-11 14:30 | US ---
ULTRASOUND GUIDED FNA THYROID BIOPSY: CLINICAL HISTORY: Bilateral thyroid nodule FINDINGS: The procedure was explained to the patient. The risks, complications, benefits and alternatives were discussed and any questions were answered. Informed consent was obtained. Patient was placed supin e on the ultrasound table and prepped and draped in the usual sterile fashion. Utilizing a 25 gauge needle, five passes were made into the requested right and left thyroid nodules. Patient was stable throughout the procedure. Pathology is pending. All elements of maximal barrier technique were utilized. IMPRESSION: 1. Successful ultrasound guided FNA thyroid biopsy.
[2022-03-11 15:06] VITALS: RESP 18; TEMP 97.4
[2022-03-11 15:08] VITALS: BP 140/74; PULSE 65
== END 2022-03-11 14:05 | disposition home or self-care (01) ==
LOC: RADPROMAIN 12:57
PROVIDERS: ATTEND Internal Medicine Endocrinology, Diabetes & Metabolism
DX: E04.1 Nontoxic single thyroid nodule (principal)
CPT/HCPCS: 10005; 10006; 88173; 88305

== ENCOUNTER → 2022-04-29 | Outpatient (CLI) | payer MEDICARE ==
[2022-04-29 19:37] LABS: T4, Free (Free Thyroxine) 1.36 ng/dL (0.800-1.800)
== END | disposition home or self-care (01) ==
LOC: LABWHC1 12:02
PROVIDERS: ATTEND Internal Medicine Interventional Cardiology
DX: E03.9 Hypothyroidism, unspecified (principal)
CPT/HCPCS: 36415; 84439; 84443

== ENCOUNTER → 2022-08-21 | Outpatient (CLI) | payer MEDICARE ==
[2022-08-21 14:54] LABS: African American GFR (CKD) >90 (>60 ml/min/1.73 sqM); Blood Urea Nitrogen 19 mg/dL (9-20); Non-African American GFR(CKD) 83 (>60 ml/min/1.73 sqM)
--- NOTE | 2022-08-21 16:54 | CT ---
CTA left upper extremity HISTORY: Left hand aneurysm. COMPARISON: None TECHNIQUE: CTA of the left upper extremity was performed according to protocol. Coronal and sagittal reconstructions were generated and reviewed. 3-D processing was performed FINDINGS: Visualized brachial artery, radial and ulnar arteries are widely patent or aneurysm. The dominant art gurinder to the hand and wrist radial artery. In the volar radial aspect of the wrist, there is a 2 cm density which is well-circumscribed. Etiolog y is indeterminate but possibly represents a ganglion cyst. If indicated,ultrasound guided fine needl e aspiration could be performed. IMPRESSION: 1. No evidence of aneurysm of the radial or ulnar arteries. 2. 2 cm Nonvascular soft tissue mass of the volar radial aspect of the wrist as described above.
== END | disposition home or self-care (01) ==
LOC: RADCTMAIN 14:09
PROVIDERS: ATTEND Orthopaedic Surgery Hand Surgery
DX: T79.A12D Traumatic compartment syndrome of left upper extremity, subsequent encounter (principal); R22.42 Localized swelling, mass and lump, left lower limb
CPT/HCPCS: 82565; 84520; 73206; Q9967

== ENCOUNTER → 2022-08-31 | Outpatient (CLI) | payer MEDICARE ==
--- NOTE | 2022-08-31 14:03 | US ---
EXAMINATION TYPE: US venous doppler duplex LE RT DATE OF EXAM: 08/31/2022 1:35 PM COMPARISON: NONE CLINICAL HISTORY: 77-year-old male R22.41 LOCALIZED SWELLING, MASS AND LUMP, RIGHT LO. SIDE PERFORMED: Right TECHNIQUE: The lower extremity deep venous system is examined utilizing real time linear array sonog hina with graded compression, doppler sonography and color-flow sonography. FINDINGS: VESSELS IMAGED: Common Femoral Vein Deep Femoral Vein Greater Saphenous Vein * Femoral Vein Popliteal Vein Small Saphenous Vein * Proximal Calf Veins (* superficial vessels) Right Leg: Negative for DVT IMPRESSION: No evidence for DVT within the right lower extremity imaged from the groin to the upper calf.
== END | disposition home or self-care (01) ==
LOC: RADUSWWP 13:33
PROVIDERS: ATTEND Internal Medicine
DX: R22.41 Localized swelling, mass and lump, right lower limb (principal)

== ENCOUNTER → 2022-09-12 | Outpatient (CLI) | payer MEDICARE ==
[2022-09-12 16:44] LABS: HGB 13.6 g/dL (13.0-17.0); MCH 30.4 pg (27.0-32.0); MCHC 30.9 g/dL (32.0-37.0); MCV 98.2 fL (80.0-97.0); Mean Platelet Volume 10.8 fL (9.5-12.2); NRBC Per 100 WBC 0 /100 WBCS (0.0-0.0); Platelet Count 202 X 10*3/uL (140-440); RBC 4.48 X 10*6/uL (4.40-5.60); RDW 13.7 % (11.5-14.5); WBC 8.48 X 10*3/uL (4.50-10.00)
[2022-09-12 16:54] LABS: African American GFR (CKD) 88.2 (60.0-200.0); Anion Gap 13.5 mmol/L (10.00-18.00); Blood Urea Nitrogen 18.9 mg/dL (9.0-27.0); Carbon Dioxide 22.2 mmol/L (20.0-27.5); Non-African American GFR(CKD) 76.1 (60.0-200.0); Potassium 4.1 mmol/L (3.5-5.5)
== END | disposition home or self-care (01) ==
LOC: LABPAT 10:01
PROVIDERS: ATTEND Internal Medicine Clinical Cardiac Electrophysiology
DX: Z01.812 Encounter for preprocedural laboratory examination (principal); I42.8 Other cardiomyopathies
CPT/HCPCS: 80051; 82565; 84520; 85027

== ENCOUNTER → 2022-09-18 | Day surgery (SDC) | payer MEDICARE ==
[2022-09-15 13:46] VITALS: BMI 31.0
[~2022-09-18] MED LIST changes: +ALPRAZolam 0.25 MG TAB PO PRN; +ASPIRIN 325 MG TAB PO PRN; -LACTATED RINGERS 1,000 ML IV SCH; -LIDOCAINE 1% (10MG/ML) FOR IV START INTRADERMA PRN; +LIDOCAINE 1% INJ 10MG/ML (30 ML VIAL-PF) SQ ONE; +MIDAZOLAM 2 MG/2 ML VIAL IV ONE; +MIDAZOLAM 2 MG/2 ML VIAL IV STA; +SODIUM CHLORIDE 0.9% 1,000 ML IV ONE
[2022-09-18 10:01] VITALS: TEMP 98.1
--- NOTE | 2022-09-18 12:16 | P.OP ---
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 Right innominate his patent without any significant auscultation or disease. Right common carotid and left common carotid artery at the takeoff are patent without significant disease. The left subclavian arteries patent without significant calcific disease. Left upper extremity: Brachial artery is patent without any significant stenosis. Bifurcation of the radial and ulnar arteries are widely patent without stenosis. He on her artery is slow flowing to the hand and just distal to the wrist there is a small aneurysmal segment in the hyperthenar area. There is good flow across the palmar arch via the radial artery. Operative narrative: After written informed consent was obtained the patient all risks benefits competitions were described the patient is brought to the [facility] and laid in a supine position. The area of the right groin was prepped and draped in the usual sterile fashion. Local anesthesia with moderate sedation was performed with continuous pulse ox monitoring and EKG monitoring. Utilizing ultrasound the right femoral artery was visualized and shown to be patent without any significant plaque. Utilizing a multipurpose needle under ultrasound guidance the artery was accessed. Guidewire was placed followed by [] sheath. 035 Glidewire was then placed into the arch aorta followed by a JR4 catheter. Angiogram was then obtained of the arch aorta. Catheter was then placed into the left subclavian artery and left upper extremity angiogram was obtained. Once completed all guidewires, catheters and sheaths were removed and pressure was placed for hemostasis. Patient tolerated procedure well was sent to PACU for recovery Plan - Discharge Summary Discharge Rx Participant: No New Discharge Prescriptions: No Action Hydrocodone/Acetaminophen [[place] 7.5-325] 1 tab PO BID PRN PRN Reason: Pain hydrALAZINE HCL [Apresoline] 100 mg PO TID Terazosin [Hytrin] 5 mg PO BID Simvastatin [Zocor] 40 mg PO HS Furosemide [Lasix] 40 mg PO QAM Montelukast [Singulair] 10 mg PO HS Losartan Potassium 100 mg PO QAM Multivitamins, Thera [Multivitamin (formulary)] 1 tab PO DAILY Mens Prostate Support 1 tab PO DAILY Albuterol Nebulized [Ventolin Nebulized] 2.5 mg INHALATION RT-BID Budesonide/Formoterol Fumarate [Symbicort 160-4.5 Mcg Inhaler] 2 puff INHALATION RT-BID Cholecalciferol [Vitamin D3 (25 Mcg = 1000 Iu)] 1,000 unit PO HS Nf-Coconut Oil 1,000 mg PO DAILY Rivaroxaban [Xarelto] 20 mg PO DAILY Potassium Chloride [K-Tab ER] 10 meq PO DAILY lysine HCL [l-Lysine] 1,000 mg PO DAILY Discharge Medication List Furosemide [Lasix] 40 mg PO QAM 02/27/14 [History] Hydrocodone/Acetaminophen [[place] 7.5-325] 1 tab PO BID PRN 02/27/14 [History] Losartan Potassium 100 mg PO QAM 02/27/14 [History] Montelukast [Singulair] 10 mg PO HS 02/27/14 [History] Simvastatin [Zocor] 40 mg PO HS 02/27/14 [History] Terazosin [Hytrin] 5 mg PO BID 02/27/14 [History] hydrALAZINE HCL [Apresoline] 100 mg PO TID 02/27/14 [History] Mens Prostate Support 1 tab PO DAILY 10/31/15 [History] Multivitamins, Thera [Multivitamin (formulary)] 1 tab PO DAILY 10/31/15 [History] Albuterol Nebulized [Ventolin Nebulized] 2.5 mg INHALATION RT-BID 12/11/15 [History] Budesonide/Formoterol Fumarate [Symbicort 160-4.5 Mcg Inhaler] 2 puff INHALATION RT-BID 12/11/15 [History] Cholecalciferol [Vitamin D3 (25 Mcg = 1000 Iu)] 1,000 unit PO HS 03/11/19 [History] Rivaroxaban [Xarelto] 20 mg PO DAILY 03/03/22 [History] Nf-Coconut Oil 1,000 mg PO DAILY 09/15/22 [History] Potassium Chloride [K-Tab ER] 10 meq PO DAILY 09/15/22 [History] lysine HCL [l-Lysine] 1,000 mg PO DAILY 09/15/22 [History] Follow up Appointment(s)/Referral(s): Steven Pepper DO [STAFF PHYSICIAN] - 2 Weeks Activity/Diet/Wound Care/Special Instructions: no heavy lifting greater than 15 lbs x 1 week. Discharge Disposition: HOME SELF-CARE
--- NOTE | 2022-09-18 12:43 | IR ---
EXAMINATION TYPE: IR angio upper extremity LT DATE OF EXAM: 09/18/2022 COMPARISON: NONE HISTORY: Fluoroscopy time. Fluoroscopy was provided to the referring clinician.
[2022-09-18 15:15] VITALS: PULSE 60
[2022-09-18 15:20] VITALS: BP 140/75; RESP 14
== END | disposition home or self-care (01) ==
LOC: CATHCVL 09:10
PROVIDERS: ATTEND Surgery
DX: I72.1 Aneurysm of artery of upper extremity (principal); I25.10 Atherosclerotic heart disease of native coronary artery without angina pectoris; I48.91 Unspecified atrial fibrillation; I42.9 Cardiomyopathy, unspecified; I10 Essential (primary) hypertension; E78.5 Hyperlipidemia, unspecified; J44.9 Chronic obstructive pulmonary disease, unspecified; J45.909 Unspecified asthma, uncomplicated; Z86.73 Personal history of transient ischemic attack (TIA), and cerebral infarction without residual deficits; H91.90 Unspecified hearing loss, unspecified ear; G47.30 Sleep apnea, unspecified; Z79.02 Long term (current) use of antithrombotics/antiplatelets; Z79.01 Long term (current) use of anticoagulants; Z79.51 Long term (current) use of inhaled steroids; Z79.83 Long term (current) use of bisphosphonates; Z79.891 Long term (current) use of opiate analgesic; Z79.899 Other long term (current) drug therapy; Z88.1 Allergy status to other antibiotic agents; Z95.0 Presence of cardiac pacemaker; Z98.890 Other specified postprocedural states; Z80.8 Family history of malignant neoplasm of other organs or systems
CPT/HCPCS: 76937; 75710; 36221; C1769 ×4; C1894; J2250; J2001; 36215

== ENCOUNTER 2022-09-22 10:07 | Day surgery (SDC) | payer MEDICARE ==
[~2022-09-22 10:07] MED LIST changes: -ALPRAZolam 0.25 MG TAB PO PRN; -ASPIRIN 325 MG TAB PO PRN; -LIDOCAINE 1% INJ 10MG/ML (30 ML VIAL-PF) SQ ONE; -MIDAZOLAM 2 MG/2 ML VIAL IV ONE; -MIDAZOLAM 2 MG/2 ML VIAL IV STA; -SODIUM CHLORIDE 0.9% 1,000 ML IV ONE; +SODIUM CHLORIDE 0.9% 1,000 ML IV SCH; +ceFAZolin 1 GM in SODIUM CHLORIDE 0.9% IRRIG BTL 250 ML IRRIGATION PRN
[2022-09-22] MEDS ORDERED: SODIUM CHLORIDE 0.9% 1,000 ML IV ONE (10:31)
[2022-09-22 10:47] VITALS: RESP 16
[2022-09-22 10:54] LABS: Basophils % (A) 0 %; Eosinophils # (A) 0.3 k/uL (0-0.7); Eosinophils % (A) 3 %; HCT 43.6 % (39.0-53.0); Lymphocytes # (A) 1.5 k/uL (1.0-4.8); Lymphocytes % (A) 18 %; MCH 31.3 pg (25.0-35.0); MCHC 32.2 g/dL (31.0-37.0); MCV 97.2 fL (80.0-100.0); Mean Platelet Volume 8.7; Monocytes # (A) 0.6 k/uL (0-1.0); Monocytes % (A) 7 %; Neutrophils # (A) 5.8 k/uL (1.3-7.7); Neutrophils % (A) 69 %; Platelet Count 182 k/uL (150-450); RBC 4.49 m/uL (4.30-5.90); RDW 13.3 % (11.5-15.5); WBC 8.4 k/uL (3.8-10.6)
[2022-09-22 11:09] LABS: African American GFR (CKD) >90 (>60 ml/min/1.73 sqM); Anion Gap 5 mmol/L; Blood Urea Nitrogen 17 mg/dL (9-20); Calcium 8.8 mg/dL (8.4-10.2); Carbon Dioxide 28 mmol/L (22-30); Chloride 108 mmol/L (98-107); Glucose 105 mg/dL (74-99); Non-African American GFR(CKD) 83 (>60 ml/min/1.73 sqM); Potassium 3.7 mmol/L (3.5-5.1); Sodium 141 mmol/L (137-145)
[2022-09-22] MEDS ORDERED: PROPOFOL 10 MG/ML 20 ML VIAL IV ONE (13:30)
[2022-09-22] MEDS ORDERED: diphenhydrAMINE 50 MG/ML 1 ML VIAL ONE (13:30)
[2022-09-22] MEDS ORDERED: MIDAZOLAM 2 MG/2 ML VIAL ONE (13:30)
[2022-09-22] MEDS ORDERED: fentaNYL (PF) 50 MCG/ML 2 ML AMP ONE (13:30)
[2022-09-22] MEDS ORDERED: VANCOMYCIN 1,750 MG in SODIUM CHLORIDE 0.9% 250 ML IVPB ONE (14:11)
[2022-09-22] MEDS ORDERED: LIDOCAINE 1% INJ 10MG/ML (30 ML VIAL-PF) SQ ONE (14:11)
[2022-09-22] MEDS ORDERED: VANCOMYCIN 1,750 MG in SODIUM CHLORIDE 0.9% 500 ML 500 ML IVPB ONE (14:30)
[2022-09-22] MEDS ORDERED: ACETAMINOPHEN TAB 325 MG TAB PO PRN (15:09)
[2022-09-22] MEDS ORDERED: ACETAMINOPHEN IV (For NPO) 1,000 MG in EMPTY BAG 1 BAG IVPB ONE (15:09)
--- NOTE | 2022-09-22 15:18 | P.EPPROC ---
- EP Procedure Note Electrophysiology Procedure Note: Diagnosis Cardio myopathy with severe LV dysfunction, systolic Status post Bi V ICD Device at [place] Severe underlying bradycardia Procedure LV/ biventricular pacemaker generator change Details Patient was brought to the EP lab in a fasting state. Written informed consent was obtained prior to the procedure. Conscious sedation provided by anesthesia team IV antibiotics administered. Local anesthesia administered. A 4 cm incision made in the pectoral area. Subfascial pocket made. Partial capsulectomy performed Chronic Atrial lead position the right atrial appendage. Fibrillatory waves on millivolts, pacing impedance 540 ohms RV lead position in the RV apex. Pacing threshold 1 warted 0.5 ms pacing impedance 310 ohms Chronic LV lead positioned in the LV vein.Star-Fix unipolar lead. LV threshold 2.75 V at 1 ms, pacing impedance 600 ohms High-voltage impedance 70 ohms Chronic biventricular ICD explanted New biventricular ICD implanted, Bro [employer], unify Assura model #[id number] Device programmed to VVIR base rate 60 2 zones of therapy with appropriate antitachycardia pacing cardioversion and defibrillation Patient tolerated the procedure well without any acute complications
[2022-09-22 18:54] VITALS: TEMP 97.5
[2022-09-22 19:02] VITALS: BP 163/84; PULSE 62
== END 2022-09-22 19:38 | disposition home or self-care (01) ==
LOC: CATHEP 10:07 → 6NMEDSUR 13:09 → CATHEP 19:38
PROVIDERS: ATTEND Internal Medicine Clinical Cardiac Electrophysiology
DX: Z45.02 Encounter for adjustment and management of automatic implantable cardiac defibrillator (principal); I11.0 Hypertensive heart disease with heart failure; I50.9 Heart failure, unspecified; I25.10 Atherosclerotic heart disease of native coronary artery without angina pectoris; I71.40 Abdominal aortic aneurysm, without rupture, unspecified; J44.9 Chronic obstructive pulmonary disease, unspecified; I48.0 Paroxysmal atrial fibrillation; I42.8 Other cardiomyopathies; F17.210 Nicotine dependence, cigarettes, uncomplicated; G47.33 Obstructive sleep apnea (adult) (pediatric); E78.5 Hyperlipidemia, unspecified; Z95.810 Presence of automatic (implantable) cardiac defibrillator; Z99.89 Dependence on other enabling machines and devices; Z98.890 Other specified postprocedural states; Z79.01 Long term (current) use of anticoagulants; Z79.899 Other long term (current) drug therapy; Z79.51 Long term (current) use of inhaled steroids; Z79.891 Long term (current) use of opiate analgesic
CPT/HCPCS: 33263; 33264; 80048; 85025; C1882; J2250; J3370; J1200; J0690; J2001; J3010; J0131; J2704

== ENCOUNTER → 2022-12-14 | Outpatient (CLI) | payer MEDICARE ==
--- NOTE | 2022-12-14 09:52 | US ---
EXAMINATION TYPE: US thyroid st tissue head/neck DATE OF EXAM: 12/14/2022 COMPARISON: NONE CLINICAL INDICATION: Male, 77 years old with history of E04.2 NONTOXIC MULTINODULAR GOITER; Thyroid n odules GLAND SIZE: Right Lobe: 4.3 x 2.0 x 2.2 cm Overall Parenchyma: homogenous Left Lobe: 5.8 x 2.6 x 2.1 cm Overall Parenchyma: homogeneous Isthmus Thickness: .4 cm NODULES RIGHT: # of nodules measured on right: 2 1. 2.1 X 1.5 x 1.8 cm, lower , solid or almost completely solid, hypoechoic nodule, which is wider than tall, with smooth margins, echogenic foci. Prior size: 1.8 x 1.7 x 1.4 cm 2. 1.2 X .9 x .9 cm, upper lateral, mixed cystic and solid, hypoechoic nodule, which is wider than tall, with smooth margins, without echogenic foci. Prior size: .8 x .6 x .7 cm LEFT: # of nodules measured on left: 1 1. 2.7 X 2.2 x 2.3 cm, lower , solid or almost completely solid, hypoechoic nodule, which is wider than tall, with smooth margins, without echogenic foci. Prior size: 2.7 x 2.0 x 2.1 cm ISTHMUS: # of nodules measured in the isthmus: 0 Bilateral neck scanned, no evidence of lymphadenopathy. IMPRESSION: Stable nonspecific thyroid nodularity.
== END | disposition home or self-care (01) ==
LOC: RADUSWWP 09:07
PROVIDERS: ATTEND Internal Medicine Endocrinology, Diabetes & Metabolism
DX: E04.2 Nontoxic multinodular goiter (principal)
CPT/HCPCS: 76536

== ENCOUNTER → 2023-01-20 | Outpatient (CLI) | payer MEDICARE ==
--- NOTE | 2023-01-20 09:33 | XR ---
EXAMINATION TYPE: XR chest 2V DATE OF EXAM: 01/20/2023 9:26 AM COMPARISON: Chest radiographs from 03/11/2019 TECHNIQUE: XR chest 2V Frontal and lateral views of the chest. CLINICAL INDICATION:Male, 77 years old with history of J440 COPD; FINDINGS: Lungs/Pleura: There is flattening of the diaphragm with increased lucency of the lungs. No evidence o f pneumothorax, pleural effusion or focal consolidation. Pulmonary vascularity: Unremarkable. Heart/mediastinum: Cardiomediastinal silhouette is unremarkable. Three lead cardiac conduction devic e overlying the left hemithorax with lead tips projecting over the right ventricle, right atrium and coronary sinus. Musculoskeletal: No acute osseous pathology. IMPRESSION: 1. No acute cardiopulmonary disease process. 2. COPD changes.
== END | disposition home or self-care (01) ==
LOC: RADXRYALE 08:56
PROVIDERS: ATTEND Internal Medicine
DX: J44.0 Chronic obstructive pulmonary disease with (acute) lower respiratory infection (principal)
CPT/HCPCS: 71046

== ENCOUNTER → 2023-02-23 | Outpatient (CLI) | payer MEDICARE ==
[2023-02-23 15:01] LABS: African American GFR (CKD) >90 (>60 ml/min/1.73 sqM); Blood Urea Nitrogen 29 mg/dL (9-20); Non-African American GFR(CKD) 83 (>60 ml/min/1.73 sqM)
--- NOTE | 2023-02-23 17:08 | CT ---
EXAMINATION TYPE: CT abdomen w con DATE OF EXAM: 02/23/2023 COMPARISON: 07/11/2021 INDICATION: left sided abdominal pain and cramping, DLP: 1601.10 mGycm, Automated exposure control for dose reduction was used. CONTRAST: 100 mL of Isovue 300. Study performed with Oral Contrast TECHNIQUE: Axial images were obtained from above the diaphragm to the pubic rami in the axial plane a t 5 mm thick sections. Reconstructed images are reviewed on the computer in the coronal plane. FINDINGS: Limited CT sections are obtained the lung bases. The lung bases are clear. CT ABDOMEN: Liver: Normal Spleen: Normal Pancreas: Normal Adrenal glands: Left adrenal gland is slightly prominent at 1.4 cm. Right adrenal gland appears withi n normal limits. Gallbladder: Gallstones present. Some pericholecystic fluid may be present. Some mild diffuse inflamm atory changes adjacent to the gallbladder may be present. Clinical correlation for acute cholecystiti s is recommended. Kidneys: No masses are evident. No hydronephrosis is present. There is a 3.8 x 5.8 cm cyst in the a nterior upper pole left kidney. Delayed images were obtained through the kidneys, which remain unrem arkable. Aorta: Vascular calcification is within the aorta. Proximal abdominal aorta has some mild prominence of 3.7 cm. Inferior vena cava: Normal. CT PELVIS: There is some mild diffuse increased density through the mesentery extending towards the r ight lower quadrant. This is nonspecific. Enlarged lymphadenopathy is not identified. Abnormal append ix is not identified. Loops of bowel within the abdomen and pelvis are normal. Multiple scattered diverticuli within the sigmoid colon. No acute diverticulitis is evident. There are loops of bowel which are incompletely d istended or lack oral contrast limiting their evaluation. Appendix: What appears to be the appendix extending from the cecum extends towards the inflammatory c hanges within the mesentery. Portion of the appendix visualized however does not appear dilated. No d ilated tubular structures are evident. Clinical management of any suspected appendicitis is recommend ed. Urinary bladder: Normal. Genitourinary structures: Prostate is out of field of view. Osseous structures: No suspicious lytic or sclerotic lesions. Facet degenerative changes are within t he lumbar spine. IMPRESSIONS: 1. Cholelithiasis. Some fluid and inflammatory changes may be adjacent to the gallbladder. Correlate for acute cholecystitis. 2. Inflammatory changes within the mesentery adjacent to a sized appendix. Early appendicitis should be considered. 3. Multiple diverticuli within the sigmoid colon without evidence of acute diverticulitis.
== END | disposition home or self-care (01) ==
LOC: RADCTMAIN 13:47
PROVIDERS: ATTEND Internal Medicine
DX: K80.20 Calculus of gallbladder without cholecystitis without obstruction (principal); K63.89 Other specified diseases of intestine; K57.30 Diverticulosis of large intestine without perforation or abscess without bleeding
CPT/HCPCS: 82565; 84520; 74160; 36415; Q9967

== ENCOUNTER 2023-02-25 10:46 | Emergency (ER) | payer MEDICARE ==
[2023-02-25 10:57] VITALS: RESP 18; TEMP 97.7
--- NOTE | 2023-02-25 11:20 | ED ---
General Adult HPI - General Chief complaint: Abdominal Pain Stated complaint: Abd pain Time Seen by Provider: 02/25/23 11:00 Source: patient, RN notes reviewed, old records reviewed Mode of arrival: ambulatory - History of Present Illness Initial comments: This is a 77-year-old male who presents emergency department stating that he had a CAT scan because he was having some left flank muscle twitches and his primary ordered a computed tomography scan. She called EMS and told him that it showed that he might of appendicitis so he was told to come to the emergency department immediately. Patient has no abdominal pain in his never had any abdominal pain particularly right lower quadrant. Patient has no upper right quadrant abdominal pain he even though it showed maybe some possible inflammatory changes in that area. Patient denies any fever chills patient denies any vomiting patient denies any diarrhea. Patient denies chest pain developing shortness of breath. Patient states the muscle twitching in the left flank which was original reason for getting a CAT scan is no longer there. - Related Data Home Medications Medication Instructions Recorded Confirmed Hydrocodone/Acetaminophen [[place] 1 tab PO BID PRN 02/27/14 02/25/23 7.5-325] Losartan Potassium 100 mg PO DAILY 02/27/14 02/25/23 Montelukast [Singulair] 10 mg PO HS 02/27/14 02/25/23 Simvastatin [Zocor] 40 mg PO HS 02/27/14 02/25/23 Terazosin [Hytrin] 5 mg PO BID 02/27/14 02/25/23 Albuterol Nebulized [Ventolin 2.5 mg INHALATION RT-BID 12/11/15 02/25/23 Nebulized] Budesonide/Formoterol Fumarate 2 puff INHALATION RT-BID 12/11/15 02/25/23 [Symbicort 160-4.5 Mcg Inhaler] Rivaroxaban [Xarelto] 20 mg PO DAILY 03/03/22 02/25/23 Azelastine HCl [Astelin Nasal 2 spr EA NOSTRIL BID 02/25/23 02/25/23 [place]] Fluticasone Nasal [place] [Flonase 2 spr EA NOSTRIL PC-LUNCH 02/25/23 02/25/23 Nasal [place]] Furosemide [Lasix] 40 mg PO DAILY 02/25/23 02/25/23 hydrALAZINE HCL [Apresoline] 100 mg PO TID 02/25/23 02/25/23 predniSONE See Taper PO DIRECTED 02/25/23 02/25/23 Allergies Allergy/AdvReac Type Severity Reaction Status Date / Time clindamycin [From Cleocin] Allergy Anaphylaxis Verified 02/25/23 12:15 Review of Systems ROS Statement: Those systems with pertinent positive or pertinent negative responses have been documented in the HPI. ROS Other: All systems not noted in ROS Statement are negative. Past Medical History Past Medical History: Atrial Fibrillation, COPD, Hypertension, Sleep Apnea/CPAP/BIPAP Additional Past Medical History / Comment(s): REFLEX SYMPATHETIC DYSTROPHY, PACEMAKER /AICD ([employer]), USES C-PAP MACHINE, ENLARGED PROSTATE, AORTIC ANEURYSM History of Any Multi-Drug Resistant Organisms: None Reported Past Surgical History: AICD, Back Surgery, Pacemaker Additional Past Surgical History / Comment(s): BACK SURGERY X3, ABDOMINAL MASS, UMBILICAL HERNIA SURGERY'S. mass removed from throat Past Anesthesia/Blood Transfusion Reactions: No Reported Reaction Type of Cardiac Device: Permanent Pacemaker, AICD Device Placement Date:: 05/19/2011 battery august 2022 Past Psychological History: No Psychological Hx Reported Smoking Status: Former smoker - Past Family History Brother(s) Family Medical History: Deep Vein Thrombosis (DVT) Father Family Medical History: Cancer Additional Family Medical History / Comment(s): LIP CANCER Mother Additional Family Medical History / Comment(s): anuersym of the brain General Exam - General Exam Comments Initial Comments: GENERAL: Patient is well-developed and well-nourished. Patient is nontoxic and well- hydrated and is in no acute distress. ENT: Neck is soft and supple. No significant lymphadenopathy is noted. Oropharynx is clear. Moist mucous membranes. Neck has full range of motion without eliciting any pain. EYES: The sclera were anicteric and conjunctiva were pink and moist. Extraocular movements were intact and pupils were equal round and reactive to light. Eyelids were unremarkable. PULMONARY: Unlabored respirations. Good breath sounds bilaterally. No audible rales rhonchi or wheezing was noted. CARDIOVASCULAR: There is a regular rate and rhythm without any murmurs gallops or rubs. ABDOMEN: Soft and nontender with normal bowel sounds. SKIN: Skin is clear with no lesions or rashes and otherwise unremarkable. NEUROLOGIC: Patient is alert and oriented x3. Cranial nerves II through XII are grossly intact. Motor and sensory are also intact. Normal speech, volume and content. Symmetrical smile. MUSCULOSKELETAL: Normal extremities with adequate strength and full range of motion. LYMPHATICS: No significant lymphadenopathy is noted PSYCHIATRIC: Normal psychiatric evaluation. Course Vital Signs 02/25/23 10:53 Temperature 97.7 F Pulse Rate 60 Respiratory 18 Rate Blood Pressure 151/82 Medical Decision Making - Medical Decision Making Was pt. sent in by a medical professional or institution (, PA, PROCUREMENT INSPECTOR, urgent care, hospital, or prison...) When possible be specific @ -Patient was sent in by the primary medical care doctor Did you speak to anyone other than the patient for history (EMS, parent, family, police, friend...)? What history was obtained from this source @ -No Did you review nursing and triage notes (agree or disagree)? Why? @ -I reviewed and agree with nursing and triage notes Were old charts reviewed (outside hosp., previous admission, EMS record, old EKG, old radiological studies, urgent care reports/EKG's, prison records)? Report findings @ -I reviewed prior radiological studies prior lab work on this patient Differential Diagnosis (chest pain, altered mental status, abdominal pain women, abdominal pain men, vaginal bleeding, weakness, fever, dyspnea, syncope, headache, dizziness, GI bleed, back pain, seizure, CVA, palpatations, mental health, musculoskeletal)? @ -Differential Abdominal Pain Men: Appendicitis, cholecystitis, diverticulosis, ischemic bowel, pancreatitis, hepatitis, UTI, gastroenteritis, AAA, incarcerated hernia, bowel obstruction, constipation, inflammatory bowel, hepatitis, peptic ulcer disease, splenic infarction, perforated viscus, testicular torsion, this is not meant to be an all-inclusive list EKG interpreted by me (3pts min.). @ -As above X-rays interpreted by me (1pt min.). @ -None done CT interpreted by me (1pt min.). @ -None done U/S interpreted by me (1pt. min.). @ -None done What testing was considered but not performed or refused? (CT, X-rays, U/S, labs)? Why? @ -None What meds were considered but not given or refused? Why? @ -None Did you discuss the management of the patient with other professionals (professionals i.e. , PA, PROCUREMENT INSPECTOR, lab, RT, psych nurse, oncology social work, material combiner, te acher, special forces officer, caseworker)? Give summary @ -No Was smoking cessation discussed for >3mins.? @ -No Was critical care preformed (if so, how long)? @ -No Were there social determinants of health that impacted care today? How? (Homelessness, low income, unemployed, alcoholism, drug addiction, transportation, low edu. Level, literacy, decrease access to med. care, long-term, rehab)? @ -No Was there de-escalation of care discussed even if they declined (Discuss DNR or withdrawal of care, Hospice)? DNR status @ -No What co-morbidities impacted this encounter? (DM, HTN, Smoking, COPD, CAD, Cancer, CVA, ARF, Chemo, Hep., AIDS, mental health diagnosis, sleep apnea, morbid obesity)? @ -None Was patient admitted / discharged? Hospital course, mention meds given and rou te, prescriptions, significant lab abnormalities, going to OR and other pertinent info. @ -I spoke to radiology about the CAT scan the did not think there was any inflammation around the appendix. I did an ultrasound that showed no inflammation or acute cholecystitis. Patient was pain-free at this point time I sent the patient home to follow-up with her primary medical care doctor Undiagnosed new problem with uncertain prognosis? @ -No Drug Therapy requiring intensive monitoring for toxicity (Heparin, Nitro, Insulin, Cardizem)? @ -No Were any procedures done? @ -No Diagnosis/symptom? @ -Left flank pain Acute, or Chronic, or Acute on Chronic? @ -Acute Uncomplicated (without systemic symptoms) or Complicated (systemic symptoms)? @ -Complicated Side effects of treatment? @ -No Exacerbation, Progression, or Severe Exacerbation? @ -No Poses a threat to life or bodily function? How? (Chest pain, [place], [place], pneumonia, PE, COPD, DKA, ARF, appy, cholecystitis, CVA, Diverticulitis, Homicidal, Suicidal, threat to staff... and all critical care pts) @ -No - Lab Data Result diagrams: 02/25/23 11:31 02/25/23 11:31 Lab Results 02/25/23 02/25/23 Range/Units 11:31 11:31 WBC 11.9 H (3.8-10.6) k/uL RBC 4.12 L (4.30-5.90) m/uL Hgb 12.8 L (13.0-17.5) gm/dL Hct 40.1 (39.0-53.0) % MCV 97.3 (80.0-100.0) fL MCH 31.2 (25.0-35.0) pg MCHC 32.0 (31.0-37.0) g/dL RDW 13.5 (11.5-15.5) % Plt Count 194 (150-450) k/uL MPV 10.0 Neutrophils % 87 % Lymphocytes % 7 % Monocytes % 5 % Eosinophils % 0 % Basophils % 0 % Neutrophils # 10.4 H (1.3-7.7) k/uL Lymphocytes # 0.8 L (1.0-4.8) k/uL Monocytes # 0.6 (0-1.0) k/uL Eosinophils # 0.0 (0-0.7) k/uL Basophils # 0.0 (0-0.2) k/uL Sodium 139 (137-145) mmol/L Potassium 3.4 L (3.5-5.1) mmol/L Chloride 105 (98-107) mmol/L Carbon Dioxide 27 (22-30) mmol/L Anion Gap 7 mmol/L BUN 21 H (9-20) mg/dL Creatinine 0.86 (0.66-1.25) mg/dL Est GFR (CKD-EPI)AfAm >90 (>60 ml/min/1.73 sqM) Est GFR (CKD-EPI)NonAf 84 (>60 ml/min/1.73 sqM) Glucose 121 H (74-99) mg/dL Calcium 8.7 (8.4-10.2) mg/dL Total Bilirubin 1.6 H (0.2-1.3) mg/dL AST 26 (17-59) U/L ALT 29 (4-49) U/L Alkaline Phosphatase 61 (38-126) U/L Total Protein 6.3 (6.3-8.2) g/dL Albumin 3.8 (3.5-5.0) g/dL Amylase 59 (30-110) U/L Lipase 81 (23-300) U/L Disposition Clinical Impression: Left flank pain Disposition: HOME SELF-CARE Condition: Good Instructions (If sedation given, give patient instructions): Abdominal Pain (ED) Is patient prescribed a controlled substance at d/c from ED?: No Referrals: Candice Freitas MD [Primary Care Provider] - 1-2 days Time of Disposition: 13:28
[2023-02-25 11:41] LABS: Basophils % (A) 0 %; Eosinophils % (A) 0 %; HCT 40.1 % (39.0-53.0); HGB 12.8 gm/dL (13.0-17.5); Lymphocytes # (A) 0.8 k/uL (1.0-4.8); Lymphocytes % (A) 7 %; MCH 31.2 pg (25.0-35.0); MCV 97.3 fL (80.0-100.0); Monocytes # (A) 0.6 k/uL (0-1.0); Monocytes % (A) 5 %; Neutrophils # (A) 10.4 k/uL (1.3-7.7); Neutrophils % (A) 87 %; Platelet Count 194 k/uL (150-450); RBC 4.12 m/uL (4.30-5.90); RDW 13.5 % (11.5-15.5); WBC 11.9 k/uL (3.8-10.6)
[2023-02-25 11:52] LABS: ALT 29 U/L (4-49); AST 26 U/L (17-59); African American GFR (CKD) >90 (>60 ml/min/1.73 sqM); Albumin 3.8 g/dL (3.5-5.0); Alkaline Phosphatase 61 U/L (38-126); Amylase 59 U/L (30-110); Anion Gap 7 mmol/L; Blood Urea Nitrogen 21 mg/dL (9-20); Calcium 8.7 mg/dL (8.4-10.2); Carbon Dioxide 27 mmol/L (22-30); Chloride 105 mmol/L (98-107); Glucose 121 mg/dL (74-99); Lipase 81 U/L (23-300); Non-African American GFR(CKD) 84 (>60 ml/min/1.73 sqM); Potassium 3.4 mmol/L (3.5-5.1); Sodium 139 mmol/L (137-145); Total Bilirubin 1.6 mg/dL (0.2-1.3); Total Protein 6.3 g/dL (6.3-8.2)
--- NOTE | 2023-02-25 13:01 | US ---
EXAMINATION TYPE: US gallbladder DATE OF EXAM: 02/25/2023 COMPARISON: CT abdomen 02/23/2023, abdominal ultrasound 08/08/2021 CLINICAL INDICATION: Male, 77 years old with history of Abdominal pain; abn CT 2 days ago, no symptom s today TECHNIQUE: Multiple sonographic images of the right upper quadrant are obtained. FINDINGS: EXAM MEASUREMENTS: Liver Length: 20.2 cm Gallbladder Wall: 0.2 cm CBD: 0.5 cm Right Kidney: 12.4 x 5.0 x 6.0 cm Pancreas: wnl Liver: enlarged Gallbladder: tiny dependant stones Evidence for sonographic Mcneill's sign: no CBD: wnl Right Kidney: wnl The visualized portion of the pink is unremarkable. The liver is enlarged without focal lesion identi fied. Cholelithiasis to measure without evidence of wall thickening or para cholecystic fluid. Per so anisharapher , negative sonographic Mcneill sign. Common bile duct within normal limits. Right kidney is unremarkable without evidence of hydronephrosis, solid mass, or nephrolithiasis. IMPRESSION: 1. No acute process. 2. Cholelithiasis without ultrasound evidence for acute cholecystitis. 3. Hepatomegaly.
[2023-02-25 13:51] VITALS: BP 168/92; PULSE 83
== END 2023-02-25 13:54 | disposition home or self-care (01) ==
LOC: EC 10:46
DX: K80.20 Calculus of gallbladder without cholecystitis without obstruction (principal); I48.91 Unspecified atrial fibrillation; J44.9 Chronic obstructive pulmonary disease, unspecified; I10 Essential (primary) hypertension; G47.30 Sleep apnea, unspecified; Z87.891 Personal history of nicotine dependence; Z79.01 Long term (current) use of anticoagulants; Z79.51 Long term (current) use of inhaled steroids; Z79.899 Other long term (current) drug therapy; Z88.1 Allergy status to other antibiotic agents
CPT/HCPCS: 36415; 76705; 80053; 82150; 83690; 85025; 99284

== ENCOUNTER → 2023-08-19 | Outpatient (CLI) | payer MEDICARE ==
--- NOTE | 2023-08-19 14:50 | CT ---
EXAMINATION TYPE: CT sinus wo con DATE OF EXAM: 08/19/2023 COMPARISON: 08/19/2023. HISTORY: Chronic sinusitis. CT DLP: 516.70 mGycm. Automated Exposure Control for Dose Reduction was Utilized. TECHNIQUE: CT scan of the sinuses is performed without contrast, axial images are obtained, coronal r eformatted images are also reviewed. FINDINGS: There is significant mucosal thickening within the maxillary sinuses, ethmoid sinuses and sphenoid si nuses bilaterally. The frontal sinuses appear clear. There are air-fluid levels also seen within the maxillary sinuses bilaterally which is compatible with acute on chronic sinusitis. The ostiomeatal complexes appear obstructed by mucosal thickening bilaterally. Visualized intracranial contents appear unremarkable. The orbital structures are within normal limits. The extraocular muscles and globes appear intact. There are no acute osseous abnormalities. IMPRESSION: Acute on chronic appearance of sinusitis.
== END | disposition home or self-care (01) ==
LOC: RADCTMAIN 13:27
PROVIDERS: ATTEND Otolaryngology
DX: J32.9 Chronic sinusitis, unspecified (principal)
CPT/HCPCS: 70486

== ENCOUNTER → 2023-08-28 | Outpatient (CLI) | payer MEDICARE ==
[2023-08-28 23:00] LABS: T4, Free (Free Thyroxine) 1.79 ng/dL (0.80-1.80)
== END | disposition home or self-care (01) ==
LOC: LABWHC1 10:03
PROVIDERS: ATTEND Internal Medicine Endocrinology, Diabetes & Metabolism
DX: E04.2 Nontoxic multinodular goiter (principal)
CPT/HCPCS: 36415; 84439; 84443

== ENCOUNTER 2023-12-24 08:27 | Day surgery (SDC) | payer MEDICARE ==
[2023-12-22 14:43] VITALS: BMI 27.5
[~2023-12-24 08:27] MED LIST changes: -ceFAZolin 1 GM in SODIUM CHLORIDE 0.9% IRRIG BTL 250 ML IRRIGATION PRN
[2023-12-24] MEDS: SODIUM CHLORIDE 0.9% 500 ML 500 ML IV ONE (08:35)
[2023-12-24 09:39] VITALS: BP 114/61; PULSE 61; RESP 16; TEMP 98.2
[2023-12-24] MEDS: IOPAMIDOL-370 100ML BTL INJ ONE (09:51)
[2023-12-24 10:36] LABS: Anisocytosis Slight; Basophils % (A) 0 %; Eosinophils # (A) 0.3 k/uL (0-0.7); Eosinophils % (A) 4 %; HCT 26.9 % (39.0-53.0); HGB 7.8 gm/dL (13.0-17.5); Hypochromasia Marked; Lymphocytes # (A) 1.1 k/uL (1.0-4.8); Lymphocytes % (A) 15 %; MCHC 29.1 g/dL (31.0-37.0); MCV 85.8 fL (80.0-100.0); Mean Platelet Volume 9.8; Monocytes # (A) 0.4 k/uL (0-1.0); Monocytes % (A) 6 %; Neutrophils # (A) 5.3 k/uL (1.3-7.7); Neutrophils % (A) 73 %; Platelet Count 155 k/uL (150-450); Poikilocytosis Slight; RBC 3.14 m/uL (4.30-5.90); RDW 16.5 % (11.5-15.5); WBC 7.4 k/uL (3.8-10.6)
[2023-12-24 10:47] LABS: ALT 17 U/L (4-49); AST 22 U/L (17-59); African American GFR (CKD) 88 (>60 ml/min/1.73 sqM); Alkaline Phosphatase 59 U/L (38-126); Anion Gap 5 mmol/L; Blood Urea Nitrogen 22 mg/dL (9-20); Calcium 8.4 mg/dL (8.4-10.2); Carbon Dioxide 28 mmol/L (22-30); Chloride 109 mmol/L (98-107); Glucose 95 mg/dL (74-99); Non-African American GFR(CKD) 76 (>60 ml/min/1.73 sqM); Potassium 3.9 mmol/L (3.5-5.1); Sodium 142 mmol/L (137-145); Total Bilirubin 0.7 mg/dL (0.2-1.3); Total Protein 5.5 g/dL (6.3-8.2)
--- NOTE | 2023-12-24 10:48 | P.EPPROC ---
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 The LV lead is a bipolar lead from greater than 10 years back The thresholds are extremely high and are associated with diaphragmatic stimulation Cinefluoroscopy of the leads was performed The LV lead is in excellent position in the anterolateral vein fluoroscopically Left upper extremity venogram was performed with a 10 cc IV dye in the left arm Patent left subclavian vein Plan Discussion with the patient I would recommend upgrade to conduction system pacing with left bundle pacing To allow for biventricular pacing and avoiding 100% RV pacing to prevent further deterioration of LV function and further titration of heart failure status CBC CMP TSH
== END 2023-12-24 10:47 | disposition home or self-care (01) ==
LOC: CATHEP 08:27
PROVIDERS: ATTEND Internal Medicine Clinical Cardiac Electrophysiology
DX: I44.2 Atrioventricular block, complete (principal); I48.0 Paroxysmal atrial fibrillation; I42.8 Other cardiomyopathies; I10 Essential (primary) hypertension; G47.33 Obstructive sleep apnea (adult) (pediatric); E78.2 Mixed hyperlipidemia; F17.210 Nicotine dependence, cigarettes, uncomplicated; Z88.1 Allergy status to other antibiotic agents; Z79.899 Other long term (current) drug therapy; Z79.01 Long term (current) use of anticoagulants
CPT/HCPCS: 36005; 75820; 80053; 84443; 85025; Q9967

== ENCOUNTER 2023-12-30 12:06 | Day surgery (SDC) | payer MEDICARE ==
[~2023-12-30 12:06] MED LIST changes: +HYDROmorphone 0.5 MG/0.5 ML SYRINGE IVP PRN; +MIDAZOLAM 2 MG/2 ML VIAL IV PRN; -SODIUM CHLORIDE 0.9% 1,000 ML IV SCH
[2023-12-30 13:13] LABS: Anisocytosis Slight; HCT 27.9 % (39.0-53.0); HGB 7.9 gm/dL (13.0-17.5); Hypochromasia Marked; MCH 24.2 pg (25.0-35.0); MCHC 28.3 g/dL (31.0-37.0); MCV 85.4 fL (80.0-100.0); Mean Platelet Volume 9.5; Platelet Count 203 k/uL (150-450); Poikilocytosis Slight; RBC 3.26 m/uL (4.30-5.90); RDW 16.5 % (11.5-15.5); WBC 7.4 k/uL (3.8-10.6)
[2023-12-30] MEDS: FAMOTIDINE 20 MG/2 ML VIAL IV ONE (15:51)
[2023-12-30] MEDS ORDERED: diphenhydrAMINE 50 MG/ML 1 ML VIAL ONE (15:52)
[2023-12-30] MEDS ORDERED: MIDAZOLAM 2 MG/2 ML VIAL ONE (15:52)
[2023-12-30] MEDS ORDERED: ONDANSETRON 4 MG/2 ML VIAL ONE (15:52)
[2023-12-30] MEDS ORDERED: fentaNYL (PF) 50 MCG/ML 2 ML AMP ONE (15:52)
[2023-12-30] MEDS: IV FLUID CONTINUATION 900 ML IV ONE (15:59)
[2023-12-30] MEDS ORDERED: LIDOCAINE 1% INJ 10MG/ML (20 ML MDV) ONE (16:05)
[2023-12-30] MEDS: LIDOCAINE 1% INJ 10MG/ML (20 ML MDV) SQ ONE (16:44)
[2023-12-30] MEDS ORDERED: VANCOMYCIN 1,500 MG in SODIUM CHLORIDE 0.9% 250 ML IVPB ONE (16:45)
[2023-12-30] MEDS: VANCOMYCIN 1,500 MG in SODIUM CHLORIDE 0.9% 500 ML 500 ML IVPB ONE (17:15)
[2023-12-30] MEDS: ceFAZolin 1 GM in SODIUM CHLORIDE 0.9% IRRIG BTL 250 ML IRRIGATION PRN (17:44)
--- NOTE | 2023-12-30 18:32 | P.EPPROC ---
- EP Procedure Note Electrophysiology Procedure Note: Diagnosis Nonischemic cardiomyopathy, chronic with CHF class II Congestive heart failure [place] [employer] class class II Wide QRS greater than 170 ms with high-grade AV block intermittently/high RV pacing percentage On guide line directed medical treatment for greater than 3 months Failed LV lead Procedure: Implantation for conduction system pacing lead/left bundle lead Same biventricular ICD reimplanted Result: Successful implantation of a new left bundle lead Stimulus-V6 = 91 ms, QRS width 140 ms, Typical right bundle pattern, unipolar configuration Pacing threshold less than 0.3 V at point 5 ms, pacing impedance 690 ohms Atrial lead: Atrial impedance 440 ohms, sensing 0.8 mV RV ICD lead: 1.5 V at point 5 ms, R waves 2.1 mV and pacing impedance 310 ohms Procedure details: Patient was brought to the EP lab in a fasting state. Written informed consent was obtained prior to the procedure. Options, pros and cons, benefits and risks and complications discussed with patient in detail prior to the procedure (shared decision making) previously. Importance of continuing medical treatment emphasized previously. Alternatives discussed previously. The left pectoral area was prepped and draped as a protocol. IV antibiotics administered including IV vancomycin. 1% lidocaine was used for local anesthesia. A 4 cm incision was made parallel to the deltopectoral groove, about 1.5 cm medial to it. The incision was carried down to the level of the pectoralis muscle and the subfascial pocket was accessed. Hemostasis was assured. The axillary vein access was obtained. Appropriately sized into to see sheaths were placed. Conduction system pacing lead placement: Left bundle lead was placed successfully. Typical right bundle branch block pattern obtained. Good current of injury Partial capsulectomy of the pocket was performed The chronic LV lead which is nonfunctioning was carefully dissected, then cut and capped and secured to the pectoralis muscle Leads secured to the underlying pectoral muscle after removing sheaths . Pocket irrigated with antibiotic solution. Antibiotic pouch placed Leads connected to the original biventricular ICD generator. Wound closed in 3 layers and dressed per protocol Biventricular ICD interrogated and programmed. Appropriate pacing parameters, antitachycardia therapies with antitachycardia pacing cardioversion defibrillations programmed. VVIR mode base rate 60 bpm LV offset 680 ms Patient tolerated the procedure well without any acute complications. MADIT RIT programming
[2023-12-30] MEDS ORDERED: ACETAMINOPHEN TAB 325 MG TAB PO PRN (18:34)
[2023-12-30] MEDS: SODIUM CHLORIDE 0.9% 1,000 ML IV SCH (20:03)
[2023-12-30] MEDS: LACTATED RINGERS 1,000 ML IV SCH (20:03)
[2023-12-30] MEDS: FUROSEMIDE 40 MG TAB PO SCH (20:20)
[2023-12-30] MEDS: ACETAMINOPHEN IV (For NPO) 1,000 MG in EMPTY BAG 1 BAG IVPB ONE (20:20)
[2023-12-30] MEDS: METOPROLOL SUCCINATE (ER) 50 MG TAB.ER.24H PO SCH (20:20)
[2023-12-30] MEDS: ATORVASTATIN 20 MG TAB PO SCH (20:21)
[2023-12-30] MEDS: MONTELUKAST 10 MG TAB PO SCH (20:21)
[2023-12-30] MEDS: DOXAZOSIN 4 MG TAB PO SCH (20:25)
[2023-12-30] MEDS: SYMBICORT 160-4.5 MCG INHALER INHALATION SCH (21:35)
[2023-12-31 02:42] VITALS: PULSE 58
[2023-12-31 08:11] VITALS: BP 132/81; RESP 17; TEMP 97.6
--- NOTE | 2023-12-31 08:13 | XR ---
EXAMINATION TYPE: XR chest 2V DATE OF EXAM: 12/31/2023 COMPARISON: 01/20/2023 TECHNIQUE: PA and lateral views submitted. HISTORY: Lead placement FINDINGS: Multilead pacemaker is seen which appears to be biventricular. No sizable pneumothorax. Heart is enla rged and there is small right pleural effusion and bibasilar atelectasis favored over pneumonia. Lester elate for mild central venous congestion. Underlying COPD but no pneumothorax. Osseous structures int act with degenerative changes of the spine and arthropathy of the shoulders. IMPRESSION: 1. Multilead cardiac device with no sizable pneumothorax. 2. Correlate for mild venous congestion with basilar atelectasis favored over pneumonia.
--- NOTE | 2023-12-31 08:14 | P.DS ---
Providers Attending physician: Jorge L Lombardo Primary care physician: Candice Fortino [facility] Course: Patient is admitted for implantation of a new left bundle lead This was performed successfully The old nonfunctioning LV lead was cut and capped Partial capsulectomy was performed in the pocket On examination Normal heart sounds No hematoma no swelling no soakage at the ICD site Breath sounds are clear no rhonchi no crackles Normal heart sounds S1-S2 is normal No JVD Impression Nonischemic cardiomyopathy with class II congestive heart failure despite medical treatment Failed LV lead pacing High RV pacing percentage along with underlying wide QRS of greater than 170 ms Implantation of a left bundle pacing lead successfully with excellent parameters, typical right bundle branch block pattern with rapid early activation Plan Hold Xarelto for 1 day and resume Continue cardiomyopathy medications Follow-up with Dr. Lewis in 1 week in the device clinic Patient Condition at Discharge: Stable Plan - Discharge Summary Discharge Rx Participant: No New Discharge Prescriptions: New RX: Metoprolol Succinate [Toprol XL] 50 mg PO DAILY #90 tab RX: Spironolactone [Aldactone] 25 mg PO DAILY #90 tablet Continue RX: Hydrocodone/Acetaminophen [[place] 7.5-325] 1 tab PO BID PRN PRN Reason: Pain RX: Terazosin [Hytrin] 5 mg PO BID RX: Simvastatin [Zocor] 40 mg PO HS RX: Montelukast [Singulair] 10 mg PO HS RX: Albuterol Nebulized [Ventolin Nebulized] 2.5 mg INHALATION RT-BID RX: Budesonide/Formoterol Fumarate [Symbicort 160-4.5 Mcg Inhaler] 2 puff INHALATION RT-BID RX: Azelastine HCl [Astelin Nasal [place]] 2 spr EA NOSTRIL BID RX: Fluticasone Nasal [place] [Flonase Nasal [place]] 2 spr EA NOSTRIL PC-LUNCH RX: Furosemide [Lasix] 40 mg PO BID Multivitamin (Unknown Dose) 1 dose PO QAM RX: Rivaroxaban [Xarelto] 20 mg PO 1700 RX: Saw/Vit E/Sod [place]rie/Lyc/Beta/Pyg [Prostate Health Caplet] 1 each PO QAM L-Lisine (Unknown Dose) 1 dose PO QAM Discontinued RX: Losartan Potassium 100 mg PO QAM Discharge Medication List RX: Hydrocodone/Acetaminophen [[place] 7.5-325] 1 tab PO BID PRN 02/27/14 [History] RX: Montelukast [Singulair] 10 mg PO HS 02/27/14 [History] RX: Simvastatin [Zocor] 40 mg PO HS 02/27/14 [History] RX: Terazosin [Hytrin] 5 mg PO BID 02/27/14 [History] RX: Albuterol Nebulized [Ventolin Nebulized] 2.5 mg INHALATION RT-BID 12/11/15 [History] RX: Budesonide/Formoterol Fumarate [Symbicort 160-4.5 Mcg Inhaler] 2 puff INHALATION RT-BID 12/11/15 [History] RX: Rivaroxaban [Xarelto] 20 mg PO 1700 03/03/22 [History] RX: Azelastine HCl [Astelin Nasal [place]] 2 spr EA NOSTRIL BID 02/25/23 [History] RX: Fluticasone Nasal [place] [Flonase Nasal [place]] 2 spr EA NOSTRIL PC-LUNCH 02/25/23 [History] RX: Furosemide [Lasix] 40 mg PO BID 02/25/23 [History] L-Lisine (Unknown Dose) 1 dose PO QAM 12/22/23 [History] Multivitamin (Unknown Dose) 1 dose PO QAM 12/22/23 [History] RX: Saw/Vit E/Sod [place]/Lyc/Beta/Pyg [Prostate Health Caplet] 1 each PO QAM 12/22/23 [History] RX: Metoprolol Succinate [Toprol XL] 50 mg PO DAILY #90 tab 12/30/23 [Rx] RX: Spironolactone [Aldactone] 25 mg PO DAILY #90 tablet 12/30/23 [Rx] Follow up Appointment(s)/Referral(s): Jocelyn Lewis MD [STAFF PHYSICIAN] - 1 Week (Device clinic follow-up in 1 week Resume Xarelto 20 mg p.o. daily on Wednesday evening) Activity/Diet/Wound Care/Special Instructions: PATIENT EDUCATION MATERIAL Instructions following a heart rhythm device implant. 1. Keep dressing DRY for 5 DAYS. You may cover the area with Saran or Cling Wrap, prior to a shower. 2. The dressing will be removed in the Device Clinic at [facility]. Absorbable sutures were used to close the wound. 3. Avoid raising the left arm above the shoulder level. 4 week restriction 4. Avoid arm movements, like backscratching, rubbing the head, or pulling on a cord. 4 weeks restriction 5. Gentle range of motion movements of the shoulder, closest to the incision should be performed to avoid a frozen shoulder. (Pendulum exercises of the shoulder) 6. The opposite arm may be used freely. 7. Avoid driving for 7 days. 8. Avoid activities such as golfing, swimming, weed whacking, lifting more than 10 pounds weight, bowling, gymnastics and weight training/lifting. (6 weeks restriction) 9. Activities such as wood chopping with an axe, pull-ups in the gymnasium, power lifting, arc-welding, being close to home induction cooktops will always be a problem. 10. Arm sling is only a reminder not to raise the arm above the head. You do not need to keep the arm completely immobilized. Your free to move the arm and use it and for normal activities. In case of any problems, please call [facility], Jannie Ochoa, @ [phone], Attention: Device Clinic Device clinic follow-up in 5 days Follow-up with primary customer account representative in 2 months Discharge Disposition: HOME SELF-CARE
[2023-12-31] MEDS: LOSARTAN 50 MG TAB PO SCH (11:33)
[2023-12-31] MEDS: METOPROLOL SUCCINATE (ER) 25 MG TAB.ER.24H PO SCH (11:33)
[2023-12-31] MEDS ORDERED: FLUTICASONE 50MCG/SPRAY NASAL 16GM EA NOSTRIL SCH (13:30)
== END 2023-12-31 13:38 | disposition home or self-care (01) ==
LOC: CATHEP 12:06 → 6NMEDSUR 18:22 → CATHEP 12-31 13:38
PROVIDERS: ATTEND Internal Medicine Clinical Cardiac Electrophysiology
DX: I08.3 Combined rheumatic disorders of mitral, aortic and tricuspid valves (principal); I42.8 Other cardiomyopathies; I50.9 Heart failure, unspecified; I11.0 Hypertensive heart disease with heart failure; E78.00 Pure hypercholesterolemia, unspecified; I45.10 Unspecified right bundle-branch block; I27.20 Pulmonary hypertension, unspecified; I48.0 Paroxysmal atrial fibrillation; G47.33 Obstructive sleep apnea (adult) (pediatric); Z79.01 Long term (current) use of anticoagulants; Z79.899 Other long term (current) drug therapy
CPT/HCPCS: 94640 ×2; 33216; 85027; 71046; C1769 ×3; C1730; C1887; C1892; C1898; J3370; J0690; J2001; J3490

== ENCOUNTER → 2024-01-17 | Outpatient (CLI) | payer MEDICARE ==
[2024-01-17 15:27] LABS: HCT 26.7 % (39.6-50.0); HGB 7.4 g/dL (13.0-17.0); MCH 22.2 pg (27.0-32.0); MCHC 27.7 g/dL (32.0-37.0); MCV 80.2 FL (80.0-97.0); Mean Platelet Volume 11.1 FL (9.5-12.2); NRBC Per 100 WBC 0 X 10*3/uL (0.00-0.01); Platelet Count 304 X 10*3/uL (140-440); RBC 3.33 X 10*6/uL (4.40-5.60); RDW 17.1 % (11.5-14.5); WBC 8.41 X 10*3/uL (4.50-10.00)
[2024-01-17 15:38] LABS: BUN/Creat Ratio 33.54 Ratio (12.00-20.00); Blood Urea Nitrogen 43.6 mg/dL (9.0-27.0); Calcium 9.8 mg/dL (8.7-10.3); Carbon Dioxide 29.6 mmol/L (21.6-31.8); Chloride 100 mmol/L (96-109); Glucose 105 mg/dL (70-110); Potassium 3.8 mmol/L (3.5-5.5); Sodium 142 mmol/L (135-145)
== END | disposition home or self-care (01) ==
LOC: LABWHC1 11:09
PROVIDERS: ATTEND Internal Medicine Interventional Cardiology
DX: I50.9 Heart failure, unspecified (principal)
CPT/HCPCS: 36415; 80048; 85027

== ENCOUNTER → 2024-02-21 | Day surgery (SDC) | payer MEDICARE ==
[2024-02-21 06:51] VITALS: BP 141/88; PULSE 58; RESP 16; TEMP 96.7
[2024-02-21] MEDS: SIMETHICONE 40 MG/0.6 ML DROPS 2,000 MG/30 ML BOTTLE PO ONE (07:07)
== END ==
LOC: ORWHC2ENDO 06:11
PROVIDERS: ATTEND Internal Medicine Gastroenterology
DX: D50.9 Iron deficiency anemia, unspecified (principal)
CPT/HCPCS: 91110

== ENCOUNTER → 2024-03-09 | Outpatient (CLI) | payer MEDICARE ==
[2024-03-09 18:29] LABS: Basophils # (A) 0.08 X 10*3/uL (0.00-0.10); Basophils % (A) 0.8 %; Eosinophils # (A) 0.12 X 10*3/uL (0.04-0.35); Eosinophils % (A) 1.2 %; HCT 37.1 % (39.6-50.0); HGB 10.6 g/dL (13.0-17.0); Lymphocytes # (A) 1.51 X 10*3/uL (0.90-5.00); Lymphocytes % (A) 15.5 %; MCH 25.1 pg (27.0-32.0); MCHC 28.6 g/dL (32.0-37.0); MCV 87.7 FL (80.0-97.0); Mean Platelet Volume 12.3 FL (9.5-12.2); Monocytes # (A) 0.82 X 10*3/uL (0.20-1.00); Monocytes % (A) 8.4 %; NRBC Per 100 WBC 0 X 10*3/uL (0.00-0.01); Neutrophils # (A) 7.15 X 10*3/uL (1.80-7.70); Neutrophils % (A) 73.7 %; Platelet Count 205 X 10*3/uL (140-440); RBC 4.23 X 10*6/uL (4.40-5.60); WBC 9.72 X 10*3/uL (4.50-10.00)
[2024-03-09 18:43] LABS: BUN/Creat Ratio 22.31 Ratio (12.00-20.00); Carbon Dioxide 20.7 mmol/L (21.6-31.8); Chloride 109 mmol/L (96-109); Glucose 111 mg/dL (70-110); Sodium 144 mmol/L (135-145)
[2024-03-09 18:44] LABS: ALT 18 U/L (10-49); AST 24 U/L (14-35); Alkaline Phosphatase 49 U/L (41-126); Calcium 9.1 mg/dL (8.7-10.3); Globulin 2.1 g/dL (1.6-3.3); Total Bilirubin 0.9 mg/dL (0.3-1.2); Total Protein 6.1 g/dL (6.2-8.2)
== END | disposition home or self-care (01) ==
LOC: LABWHC1 14:41
PROVIDERS: ATTEND Internal Medicine
DX: J44.1 Chronic obstructive pulmonary disease with (acute) exacerbation (principal)
CPT/HCPCS: 36415; 80053; 85025

== ENCOUNTER → 2024-03-20 | Outpatient (CLI) | payer MEDICARE ==
[2024-03-20 17:41] LABS: BUN/Creat Ratio 16.38 Ratio (12.00-20.00); Blood Urea Nitrogen 21.3 mg/dL (9.0-27.0); Calcium 9.1 mg/dL (8.7-10.3); Carbon Dioxide 26.2 mmol/L (21.6-31.8); Chloride 102 mmol/L (96-109); Glucose 106 mg/dL (70-110); Potassium 4.2 mmol/L (3.5-5.5); Sodium 141 mmol/L (135-145)
== END | disposition home or self-care (01) ==
LOC: LABWHC1 08:55
PROVIDERS: ATTEND Nurse Practitioner
DX: I50.20 Unspecified systolic (congestive) heart failure (principal)
CPT/HCPCS: 36415; 80048

== ENCOUNTER 2024-11-21 19:31 | Observation (INO) | payer MEDICARE ==
--- NOTE | 2024-11-21 19:34 | ED ---
Fall HPI - General Stated Complaint: Fall Time Seen by Provider: 11/21/24 19:33 Source: RN notes reviewed, old records reviewed Mode of arrival: EMS Limitations: no limitations - History of Present Illness Initial Comments: This is a 79-year-old male after a syncopal elbow event syncopal event with fall, syncopal event fall history of atrial fibrillation on blood thinners, ronal es hitting his head. Does not remember events surrounding the fall but was weak both legs were weak and he was unable to get up after a fall. Family was able to call EMS and patient presents by EMS without complaints of pain just feeling weak generalized. 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 Fall Witnessed: yes, by family Place Fall Occurred: home Loss of Consciousness: none Prolonged Down Time?: no Symptoms Prior to Fall: none Severity: moderate Severity scale (1-10): 5 Context: tripped/slipped, recent illness, other (Syncope) Associated Symptoms: denies - Related Data Home Medications Medication Instructions Recorded Confirmed Hydrocodone/Acetaminophen [[place] 1 tab PO BID PRN 02/27/14 11/22/24 7.5-325] Montelukast [Singulair] 10 mg PO HS 02/27/14 11/22/24 Simvastatin [Zocor] 40 mg PO HS 02/27/14 11/22/24 Terazosin [Hytrin] 5 mg PO 02/27/14 11/22/24 Azelastine HCl [Astelin Nasal 2 spr EA NOSTRIL BID 02/25/23 11/22/24 [place]] Fluticasone Nasal [place] [Flonase 2 spr EA NOSTRIL BID 02/25/23 11/22/24 Nasal [place]] Furosemide [Lasix] 20 mg PO BID 02/25/23 11/22/24 Spironolactone [Aldactone] 12.5 mg PO DAILY 12/31/23 11/22/24 Pantoprazole [Protonix] 40 mg PO DAILY 02/17/24 11/22/24 Potassium Chloride 20 meq PO DAILY 02/17/24 11/22/24 Albuterol Sulfate [Ventolin HFA] 2 puff INHALATION RT-Q4H PRN 11/22/24 11/22/24 Budesonide/Formoterol Fumarate 2 puff INHALATION RT-BID 11/22/24 11/22/24 [[place] 160-4.5 Mcg Inhaler] Cholecalciferol [Vitamin D3 (25 25 mcg PO HS 11/22/24 11/22/24 Mcg = 1000 Iu)] Ferrous Sulfate [Iron (65 MG 325 mg PO DIRECTED 11/22/24 11/22/24 Elemental)] Ipratropium-Albuterol Nebulize 3 ml INHALATION RT-Q6H PRN 11/22/24 11/22/24 [Duoneb 0.5 mg-3 mg/3 ml Soln] Levalbuterol Hfa Inhaler [Xopenex 1 puff INHALATION RT-Q6H PRN 11/22/24 11/22/24 Hfa Inhaler] Losartan [Cozaar] 25 mg PO DAILY 11/22/24 11/22/24 Metoprolol Succinate (ER) [Toprol 25 mg PO BID 11/22/24 11/22/24 XL] Potassium Chloride ER [K-Dur 10] 10 meq PO HS 11/22/24 11/22/24 Rivaroxaban [Xarelto] 20 mg PO HS 11/22/24 11/22/24 Sucralfate [Carafate] 1 gm PO AC-TID 11/22/24 11/22/24 metOLazone 2.5 mg PO DAILY 11/22/24 11/22/24 Previous Rx's Medication Instructions Recorded Amiodarone [Cordarone] 400 mg PO BID #60 tab 11/23/24 Allergies Allergy/AdvReac Type Severity Reaction Status Date / Time clindamycin [From Cleocin] Allergy Anaphylaxis Verified 11/22/24 11:06 Review of Systems ROS Statement: Those systems with pertinent positive or pertinent negative responses have been documented in the HPI. ROS Other: All systems not noted in ROS Statement are negative. Past Medical History Past Medical History: Atrial Fibrillation, Blood Disorder, Heart Failure, COPD, GI Bleed, Hyperlipidemia, Hypertension, Osteoarthritis (OA), Prostate Disorder, Sleep Apnea/CPAP/BIPAP Additional Past Medical History / Comment(s): REFLEX SYMPATHETIC DYSTROPHY, PACEMAKER/AICD([employer]), USES C-PAP MACHINE, ENLARGED PROSTATE, AORTIC ANEURYSM; david swollen lower legs, david knee arthritis, cyst on left kidney. Iron deficiency anemia. History of Any Multi-Drug Resistant Organisms: None Reported Past Surgical History: AICD, Back Surgery, Hernia Repair, Pacemaker Additional Past Surgical History / Comment(s): BACK SURGERY X3, UMBILICAL HERNIA SURGERY'S. Benign abd mass removed, mass removed from throat. Aneurysm removed from lt hand. Nasal polyps removed. David cataract surgery. Colonoscopy 1 month ago at [facility] with Dr. Grimaldo. Past Anesthesia/Blood Transfusion Reactions: No Reported Reaction Additional Past Anesthesia/Blood Transfusion Reaction / Comment(s): Received blo od transfusion at [facility] for low Hgb- no problems. Type of Cardiac Device: Biventricular Pacemaker, Permanent Pacemaker, AICD Device Placement Date:: 12/30/23 Past Psychological History: No Psychological Hx Reported Smoking Status: Former smoker Past Alcohol Use History: Rare Additional Past Alcohol Use History / Comment(s): SMOKING FOR 50 YEARS OR MORE, USED TO SMOKE 1 PPD, QUIT 10 years ago Past Drug Use History: None Reported Additional Drug Use History / Comment(s): MARIJUANA COOKIES PRN PAIN - Past Family History Brother(s) Family Medical History: Deep Vein Thrombosis (DVT) Father Family Medical History: Cancer Additional Family Medical History / Comment(s): LIP CANCER Mother Additional Family Medical History / Comment(s): anuersym of the brain General Exam General appearance: alert, in no apparent distress Head exam: Present: atraumatic, normocephalic, normal inspection Eye exam: Present: normal appearance, PERRL, EOMI. Absent: scleral icterus, conjunctival injection, periorbital swelling ENT exam: Present: normal exam, mucous membranes moist Neck exam: Present: normal inspection. Absent: tenderness, meningismus, lymphadenopathy Respiratory exam: Present: normal lung sounds bilaterally. Absent: respiratory distress, wheezes, rales, rhonchi, stridor Cardiovascular Exam: Present: regular rate, normal rhythm, normal heart sounds. Absent: systolic murmur, diastolic murmur, rubs, gallop, clicks GI/Abdominal exam: Present: soft, normal bowel sounds. Absent: distended, tenderness, guarding, rebound, rigid Extremities exam: Present: normal inspection, full ROM, normal capillary refill. Absent: tenderness, pedal edema, joint swelling, calf tenderness Back exam: Present: normal inspection Neurological exam: Present: alert, oriented X3, CN II-XII intact Psychiatric exam: Present: normal affect, normal mood Skin exam: Present: warm, dry, intact, normal color. Absent: rash Course Vital Signs 11/21/24 11/21/24 11/21/24 19:32 20:53 22:56 Temperature 98.2 F Pulse Rate 59 L 60 61 Respiratory 18 18 16 Rate Blood Pressure 135/97 139/93 123/93 O2 Sat by Pulse 96 97 97 Oximetry 11/22/24 11/22/24 11/22/24 00:00 00:53 00:59 Temperature Pulse Rate 61 60 62 Respiratory 16 18 18 Rate Blood Pressure 126/100 O2 Sat by Pulse 99 Oximetry - Reevaluation(s) Reevaluation #1: 11/21/24 20:21 Medical records reviewed Reevaluation #2: 11/21/24 21:50 Patient has no recurrent discharge of defibrillator here in the ER no recurrent syncope Patient has no chest pain or shortness of breath Reevaluation #3: 11/21/24 21:50 Patient informed of results questions answered Reevaluation #4: Was pt. sent in by a medical professional or institution (, PA, PAVILION CUTTER, urgent care, hospital, or prison...) When possible be specific @ -no Did you speak to anyone other than the patient for history (EMS, parent, family, police, friend...)? What history was obtained from this source @ -no Did you review nursing and triage notes (agree or disagree)? Why? @ -agree Are old charts reviewed (outside hosp., previous admission, EMS record, old EKG, old radiological studies, urgent care reports/EKG's, prison records)? Report findings @ -yes Differential Diagnosis (chest pain, altered mental status, abdominal pain women, abdominal pain men, vaginal bleeding, weakness, fever, dyspnea, syncope, headache, dizziness, GI bleed, back pain, seizure, CVA, palpatations, mental h ealth, musculoskeletal)? @ -prior EKG interpreted by me (3pts min.). @ -yes X-rays interpreted by me (1pt min.). @ -yes negative for acute disease CT interpreted by me (1pt min.). @ -Yes negative for acute disease U/S interpreted by me (1pt. min.). @ -no What testing was considered but not performed or refused? (CT, X-rays, U/S, labs)? Why? @ -none What meds were considered but not given or refused? Why? @ -none Did you discuss the management of the patient with other professionals (prof antoine i.e. , PA, PAVILION CUTTER, lab, RT, psych nurse, socially responsible investment adviser, windshield wiper repairer, teacher, commissary officer, case liner)? Give summary @ -no Was smoking cessation discussed for >3mins.? @ -no Was critical care preformed (if so, how long)? @ -[id number] Were there social determinants of health that impacted care today? How? (Homelessness, low income, unemployed, alcoholism, drug addiction, transportation, low edu. Level, literacy, decrease access to med. care, retirement, rehab)? @ -none Was there de-escalation of care discussed even if they declined (Discuss DNR or withdrawal of care, Hospice)? DNR status @ -no What co-morbidities impacted this encounter? (DM, HTN, Smoking, COPD, CAD, Cancer, CVA, ARF, Chemo, Hep., AIDS, mental health diagnosis, sleep apnea, morbid obesity)? @ -none Was patient admitted / discharged? Hospital course, mention meds given and route, prescriptions, significant lab abnormalities, going to OR and other pertinent info. @ - 79 male to the ER for evaluation patient presents today for evaluation regards to defibrillator discharge multiple times syncopal event suspect severe arrhythmia, patient will be admitted for cardiology observation Admitted Undiagnosed new problem with uncertain prognosis? @ -no Drug Therapy requiring intensive monitoring for toxicity (Heparin, Nitro, Insulin, Cardizem)? @ -no Were any procedures done? @ -no Diagnosis/symptom? @ -Syncope concern arrhythmia defibrillator discharge Acute, or Chronic, or Acute on Chronic? @ -Acute Uncomplicated (without systemic symptoms) or Complicated (systemic symptoms)? @ -Complicated Side effects of treatment? @ -no Exacerbation, Progression, or Severe Exacerbation? @ -exacerbation Poses a threat to life or bodily function? How? (Chest pain, USA, IA, pneumonia, PE, COPD, DKA, ARF, appy, cholecystitis, CVA, Diverticulitis, Homicidal, Suicidal, threat to staff... and all critical care pts) @ -yes significant arrhythmia Reevaluation #5: Differential Syncope: Valvular disease, hypertrophic cardiomyopathy, pulmonary embolism, tamponade, tachycardia, bradycardia, IA, hypovolemia, hemorrhage, dissection, anemia, intracranial hemorrhage, seizure, hypoglycemia, carbon monoxide poisoning, this is not meant to be an all-inclusive list. - Consultations Consultation #1: Spoke with admitting physicians who agreed to admit this patient Medical Decision Making - Medical Decision Making 79 male to the ER for evaluation patient presents today for evaluation regards to defibrillator discharge multiple times syncopal event suspect severe arrhythmia, patient will be admitted for cardiology observation - Lab Data Result diagrams: 11/23/24 08:22 11/23/24 08:22 Lab Results 11/21/24 11/21/24 11/21/24 Range/Units 19:47 20:51 20:51 WBC 7.5 (3.8-10.6) k/uL RBC 4.24 L (4.30-5.90) m/uL Hgb 12.5 L (13.0-17.5) gm/dL Hct 41.3 (39.0-53.0) % MCV 97.4 (80.0-100.0) fL MCH 29.5 (25.0-35.0) pg MCHC 30.3 L (31.0-37.0) g/dL RDW 14.7 (11.5-15.5) % Plt Count 134 L (150-450) k/uL MPV 9.2 Neutrophils % 79 % Lymphocytes % 11 % Monocytes % 7 % Eosinophils % 1 % Basophils % 0 % Neutrophils # 5.9 (1.3-7.7) k/uL Lymphocytes # 0.8 L (1.0-4.8) k/uL Monocytes # 0.5 (0-1.0) k/uL Eosinophils # 0.1 (0-0.7) k/uL Basophils # 0.0 (0-0.2) k/uL Hypochromasia Marked PT 14.9 H (10.0-12.5) sec INR 1.4 H (<1.2) APTT 27.3 (22.0-30.0) sec Sodium (137-145) mmol/L Potassium (3.5-5.1) mmol/L Chloride (98-107) mmol/L Carbon Dioxide (22-30) mmol/L Anion Gap mmol/L BUN (9-20) mg/dL Creatinine (0.66-1.25) mg/dL Est GFR (CKD-EPI)AfAm (>60 ml/min/1.73 sqM) Est GFR (CKD-EPI)NonAf (>60 ml/min/1.73 sqM) Glucose (74-99) mg/dL Plasma Lactic Acid Lj (0.7-2.0) mmol/L Calcium (8.4-10.2) mg/dL Phosphorus (2.5-4.5) mg/dL Magnesium (1.6-2.3) mg/dL Total Bilirubin (0.2-1.3) mg/dL AST (17-59) U/L ALT (4-49) U/L Alkaline Phosphatase (38-126) U/L Troponin I (0.000-0.034) ng/mL NT-Pro-B Natriuret Pep pg/mL Total Protein (6.3-8.2) g/dL Albumin (3.5-5.0) g/dL Influenza Type A (PCR) Not Detected (Not Detectd) Influenza Type B (PCR) Not Detected (Not Detectd) RSV (PCR) Not Detected (Not Detectd) SARS-CoV-2 (PCR) Not Detected (Not Detectd) 11/21/24 11/21/24 11/21/24 Range/Units 20:51 20:51 20:51 WBC (3.8-10.6) k/uL RBC (4.30-5.90) m/uL Hgb (13.0-17.5) gm/dL Hct (39.0-53.0) % MCV (80.0-100.0) fL MCH (25.0-35.0) pg MCHC (31.0-37.0) g/dL RDW (11.5-15.5) % Plt Count (150-450) k/uL MPV Neutrophils % % Lymphocytes % % Monocytes % % Eosinophils % % Basophils % % Neutrophils # (1.3-7.7) k/uL Lymphocytes # (1.0-4.8) k/uL Monocytes # (0-1.0) k/uL Eosinophils # (0-0.7) k/uL Basophils # (0-0.2) k/uL Hypochromasia PT (10.0-12.5) sec INR (<1.2) APTT (22.0-30.0) sec Sodium 140 (137-145) mmol/L Potassium 4.8 (3.5-5.1) mmol/L Chloride 107 (98-107) mmol/L Carbon Dioxide 24 (22-30) mmol/L Anion Gap 9 mmol/L BUN 34 H (9-20) mg/dL Creatinine 1.32 H (0.66-1.25) mg/dL Est GFR (CKD-EPI)AfAm 59 (>60 ml/min/1.73 sqM) Est GFR (CKD-EPI)NonAf 51 (>60 ml/min/1.73 sqM) Glucose 106 H (74-99) mg/dL Plasma Lactic Acid Lj 1.6 (0.7-2.0) mmol/L Calcium 8.8 (8.4-10.2) mg/dL Phosphorus 4.0 (2.5-4.5) mg/dL Magnesium 2.0 (1.6-2.3) mg/dL Total Bilirubin 1.4 H (0.2-1.3) mg/dL AST 20 (17-59) U/L ALT 12 (4-49) U/L Alkaline Phosphatase 49 (38-126) U/L Troponin I 0.042 H* (0.000-0.034) ng/mL NT-Pro-B Natriuret Pep 9720 pg/mL Total Protein 6.0 L (6.3-8.2) g/dL Albumin 3.5 (3.5-5.0) g/dL Influenza Type A (PCR) (Not Detectd) Influenza Type B (PCR) (Not Detectd) RSV (PCR) (Not Detectd) SARS-CoV-2 (PCR) (Not Detectd) - EKG Data -: EKG Interpreted by Me (EKG is paced 65 QRS 134 acute QTc 429) - Radiology Data Radiology results: report reviewed (CT brain C-spine and chest x-ray is negative for acute disease x-ray pelvis negative), image reviewed Critical Care Time Critical Care Time: Yes Total Critical Care Time: 31 Disposition Clinical Impression: Vasovagal syncope, PVCs (premature ventricular contractions), Palpitations, Defibrillator discharge, Arrhythmia Disposition: ADMITTED IP TO THIS HOSP Condition: Stable Is patient prescribed a controlled substance at d/c from ED?: No Time of Disposition: 21:40
[2024-11-21] MEDS: SODIUM CHLORIDE 0.9% 1,000 ML IV ONE (19:45)
[2024-11-21 20:26] LABS: Influenza A Not Detected (Not Detectd); Influenza B Not Detected (Not Detectd); RSV Not Detected (Not Detectd)
[2024-11-21] MEDS: ONDANSETRON 4 MG/2 ML VIAL IVP STA (20:29)
--- NOTE | 2024-11-21 20:38 | XR ---
EXAMINATION TYPE: XR chest 1V DATE OF EXAM: 11/21/2024 8:19 PM COMPARISON: Chest radiographs from 12/31/2023. CLINICAL INDICATION: Male, 79 years old with history of fall; pain TECHNIQUE: XR chest 1V Frontal view of the chest. FINDINGS: Lungs/Pleura: There is no evidence of pleural effusion, focal consolidation, or pneumothorax. Pulmonary vascularity: Pulmonary vascular congestion. Heart/mediastinum: Cardiomediastinal silhouette is enlarged. Musculoskeletal: No acute osseous pathology. IMPRESSION: No acute cardiopulmonary disease/process. [facility], , 11/21/2024 8:35 PM
--- NOTE | 2024-11-21 20:38 | XR ---
EXAMINATION TYPE: XR pelvis AP view DATE OF EXAM: 11/21/2024 8:20 PM COMPARISON: None CLINICAL INDICATION: Male, 79 years old with history of fall; pain [facility] TECHNIQUE: XR pelvis AP view, examined in a single projection. FINDINGS: There is no evidence of fracture or dislocation. There is no soft tissue abnormality. No a bnormal calcifications are present. The spine appears intact. The hips appear intact. Osteophyte form ation of the superior acetabulum bilaterally with mild joint space narrowing. IMPRESSION: No acute osseous pathology. Mild degeneration changes of the hip. [facility], , 11/21/2024 8:36 PM
--- NOTE | 2024-11-21 20:51 | CT ---
EXAMINATION TYPE: CT brain cspine wo con DATE OF EXAM: 11/21/2024 8:29 PM COMPARISON: 12/14/2022. CLINICAL INDICATION: Male, 79 years old with history of fall; Fall on thinners., pain TECHNIQUE: Brain: Multiple axial CT images of the brain were obtained without IV contrast. Cspine: Axial CT images from the skull base to the inferior aspect of T2 we obtained without intraven ous contrast. Coronal and sagittal reformatted images were also reviewed. . CT DLP: 1455.8 mGycm, Automated exposure control for dose reduction was used. FINDINGS: Brain: Extra-axial spaces: No abnormal extra-axial fluid collections. Ventricular system: Dilatation in proportion to cerebral atrophy. Cerebral parenchyma: Cerebral atrophy. No acute intraparenchymal hemorrhage or mass effect. The hall -white junction is well differentiated. Scattered hypoattenuating areas are seen within the white mat ter. Cerebellum: Unremarkable. Mass effect: No evidence of midline shift. Intracranial vasculature: Atherosclerotic calcifications of the intracranial vessels. Soft tissues: Normal. Calvarium/osseous structures: No depressed skull fracture. Paranasal sinuses and mastoid air cells: In sestamibi changes with mucosal thickening of the maxillar y sinuses. Visualized orbits: Bilateral aphakia Cervical spine: Fracture: None. Osseous structures: Multilevel degenerative disc disease changes with endplate spurring and disc oste ophyte complex's. Fusion of the bilateral facets of C2 and C3 on the left. Vertebral alignment: Within normal limits. Spinal canal/Neural Foramina: No evidence of significant spinal canal narrowing. No evidence for sign ificant neural foraminal stenosis. Neck soft tissues: Prevertebral soft tissues are within normal limits. Other: The airway is patent. Small right pleural effusion.. Atherosclerosis of the carotid bifurcatio ns. Bilateral thyroid nodules. IMPRESSION: 1. No acute intracranial process. 2. Nonspecific white matter changes, likely secondary to chronic small vessel ischemic disease. 3. No evidence of cervical spine fracture. 4. Mild multilevel degenerative disc disease. 5. Thyroid nodules similar to 12/14/2022 ultrasound. 6. Right pleural effusion partially visualized. [facility], , 11/21/2024 8:49 PM
[2024-11-21 20:58] LABS: Basophils % (A) 0 %; Eosinophils # (A) 0.1 k/uL (0-0.7); Eosinophils % (A) 1 %; HCT 41.3 % (39.0-53.0); HGB 12.5 gm/dL (13.0-17.5); Hypochromasia Marked; Lymphocytes # (A) 0.8 k/uL (1.0-4.8); Lymphocytes % (A) 11 %; MCH 29.5 pg (25.0-35.0); MCHC 30.3 g/dL (31.0-37.0); MCV 97.4 fL (80.0-100.0); Mean Platelet Volume 9.2; Monocytes # (A) 0.5 k/uL (0-1.0); Monocytes % (A) 7 %; Neutrophils # (A) 5.9 k/uL (1.3-7.7); Neutrophils % (A) 79 %; Platelet Count 134 k/uL (150-450); RBC 4.24 m/uL (4.30-5.90); RDW 14.7 % (11.5-15.5); WBC 7.5 k/uL (3.8-10.6)
[2024-11-21 21:08] LABS: INR 1.4 (<1.2); Partial Thromboplastin Time 27.3 sec (22.0-30.0); Prothrombin Time 14.9 sec (10.0-12.5)
[2024-11-21 21:17] LABS: ALT 12 U/L (4-49); AST 20 U/L (17-59); African American GFR (CKD) 59 (>60 ml/min/1.73 sqM); Albumin 3.5 g/dL (3.5-5.0); Alkaline Phosphatase 49 U/L (38-126); Anion Gap 9 mmol/L; Blood Urea Nitrogen 34 mg/dL (9-20); Calcium 8.8 mg/dL (8.4-10.2); Carbon Dioxide 24 mmol/L (22-30); Chloride 107 mmol/L (98-107); Glucose 106 mg/dL (74-99); Non-African American GFR(CKD) 51 (>60 ml/min/1.73 sqM); Potassium 4.8 mmol/L (3.5-5.1); Sodium 140 mmol/L (137-145); Total Bilirubin 1.4 mg/dL (0.2-1.3)
[2024-11-21 21:26] LABS: NT-Pro-B-Type Natriuretic Pept 9720 pg/mL
[2024-11-21] MEDS ORDERED: NALOXONE 0.4 MG/ML 1 ML VIAL IV PRN (21:46)
[2024-11-21] MEDS ORDERED: ONDANSETRON 4 MG/2 ML VIAL IVP PRN (21:46)
[2024-11-21] MEDS ORDERED: HYDROmorphone 1 MG/ML 1 ML SYRINGE IVP PRN (21:46)
[2024-11-22] MEDS: IPRATROPIUM-ALBUTEROL 3 ML NEB INHALATION PRN (00:53)
[2024-11-22] MEDS ORDERED: HYDROcodone/APAP 7.5-325MG 1 EACH TAB PO PRN (02:43)
[2024-11-22] MEDS ORDERED: guaiFENesin 600 MG TABLET.ER PO PRN (05:23)
[2024-11-22 06:56] LABS: Basophils % (A) 0 %; Eosinophils # (A) 0.4 k/uL (0-0.7); Eosinophils % (A) 5 %; HCT 40.4 % (39.0-53.0); HGB 12.3 gm/dL (13.0-17.5); Hypochromasia Marked; Lymphocytes # (A) 0.8 k/uL (1.0-4.8); Lymphocytes % (A) 11 %; MCH 30.1 pg (25.0-35.0); MCHC 30.5 g/dL (31.0-37.0); MCV 98.6 fL (80.0-100.0); Mean Platelet Volume 9.3; Monocytes # (A) 0.6 k/uL (0-1.0); Monocytes % (A) 9 %; Neutrophils # (A) 5.5 k/uL (1.3-7.7); Neutrophils % (A) 73 %; Platelet Count 128 k/uL (150-450); RBC 4.09 m/uL (4.30-5.90); RDW 14.7 % (11.5-15.5); WBC 7.5 k/uL (3.8-10.6)
[2024-11-22 07:11] LABS: ALT 12 U/L (4-49); AST 21 U/L (17-59); African American GFR (CKD) 65 (>60 ml/min/1.73 sqM); Albumin 3.2 g/dL (3.5-5.0); Alkaline Phosphatase 49 U/L (38-126); Anion Gap 8 mmol/L; Blood Urea Nitrogen 30 mg/dL (9-20); Calcium 8.6 mg/dL (8.4-10.2); Carbon Dioxide 22 mmol/L (22-30); Chloride 108 mmol/L (98-107); Glucose 97 mg/dL (74-99); Non-African American GFR(CKD) 56 (>60 ml/min/1.73 sqM); Phosphorus 4.1 mg/dL (2.5-4.5); Sodium 138 mmol/L (137-145); Total Bilirubin 1.3 mg/dL (0.2-1.3); Total Protein 5.8 g/dL (6.3-8.2)
--- NOTE | 2024-11-22 07:48 | P.CRDCN ---
History of Present Illness Consult date: 11/22/24 History of present illness: The patient is a 79-year-old gentleman with a past medical history significant for cardiomyopathy status post ICD as well as history of CAD according to home with the prior stent with unknown details at this point as well as permanent atrial fibrillation and multiple comorbid conditions. He presented to the hospital with an episode of syncope with the patient was in his usual state of health where he was taking the trash outside home yesterday when he suddenly did have an episode of syncope with no prodromal symptoms and no other cardi ovascular symptoms of any pain in the chest or shortness of breath or any feeling of heart racing or fluttering. He presented to the emergency department where he underwent further evaluation including an EKG showing underlying atrial fibrillation with ventricular paced rhythm. Also he underwent a chest x-ray came in to be unremarkable and CT scan of the brain came to be unremarkable with the rest of the blood work overall came to be unremarkable besides mildly elevated troponin and that was the first troponin. Currently he is asymptomatic and currently he is stable in terms of blood pressure and heart rate. He is on oral anticoagulation with Xarelto. The physical examination is remarkable for regular rhythm with a systolic murmur at the right upper sternal border with clear breathing sounds bilaterally and no edema was noted Assessment Syncopal episode concerning for cardiac etiology in a gentleman with cardiomyopathy and history of AICD Evidence of myocardial injury with no evidence of ischemia as of now History of cardiomyopathy History of CAD Permanent atrial fibrillation Plan Obtain further cardiac enzymes Obtain an echocardiogram with Doppler Continue the current medical regimen for cardiomyopathy AICD interrogation Follow-up with the patient Consider ruling out orthostatic hypotension if the yield from the AICD interrogation is low Past Medical History Past Medical History: Atrial Fibrillation, Blood Disorder, Heart Failure, COPD, GI Bleed, Hyperlipidemia, Hypertension, Osteoarthritis (OA), Prostate Disorder, Sleep Apnea/CPAP/BIPAP Additional Past Medical History / Comment(s): REFLEX SYMPATHETIC DYSTROPHY, PACEMAKER/AICD([employer]), USES C-PAP MACHINE, ENLARGED PROSTATE, AORTIC ANEURYSM; david swollen lower legs, david knee arthritis, cyst on left kidney. Iron deficiency anemia. History of Any Multi-Drug Resistant Organisms: None Reported Past Surgical History: AICD, Back Surgery, Hernia Repair, Pacemaker Additional Past Surgical History / Comment(s): BACK SURGERY X3, UMBILICAL HERNIA SURGERY'S. Benign abd mass removed, mass removed from throat. Aneurysm removed from lt hand. Nasal polyps removed. David cataract surgery. Colonoscopy 1 month ago at [facility] with Dr. Grimaldo. Past Anesthesia/Blood Transfusion Reactions: No Reported Reaction Additional Past Anesthesia/Blood Transfusion Reaction / Comment(s): Received blood transfusion at [facility] for low Hgb- no problems. Type of Cardiac Device: Biventricular Pacemaker, Permanent Pacemaker, AICD Device Placement Date:: 12/30/23 Past Psychological History: No Psychological Hx Reported Smoking Status: Former smoker Past Alcohol Use History: Rare Additional Past Alcohol Use History / Comment(s): SMOKING FOR 50 YEARS OR MORE, USED TO SMOKE 1 PPD, QUIT 10 years ago Past Drug Use History: None Reported Additional Drug Use History / Comment(s): MARIJUANA COOK[employer] PRN PAIN - Past Family History Brother(s) Family Medical History: Deep Vein Thrombosis (DVT) Father Family Medical History: Cancer Additional Family Medical History / Comment(s): LIP CANCER Mother Additional Family Medical History / Comment(s): anuersym of the brain Medications and Allergies Home Medications Medication Instructions Recorded Confirmed Type Hydrocodone/Acetaminophen [[place] 1 tab PO BID PRN 02/27/14 11/22/24 History 7.5-325] Montelukast [Singulair] 10 mg PO HS 02/27/14 11/22/24 History Simvastatin [Zocor] 40 mg PO HS 02/27/14 11/22/24 History Terazosin [Hytrin] 5 mg PO HS 02/27/14 11/22/24 History Albuterol Nebulized [Ventolin 2.5 mg INHALATION RT-BID 12/11/15 11/22/24 History Nebulized] Budesonide/Formoterol Fumarate 2 puff INHALATION RT-BID 12/11/15 11/22/24 History [Symbicort 160-4.5 Mcg Inhaler] Azelastine HCl [Astelin Nasal 2 spr EA NOSTRIL DAILY PRN 02/25/23 11/22/24 History [place]] Fluticasone Nasal [place] [Flonase 2 spr EA NOSTRIL DAILY PRN 02/25/23 11/22/24 History Nasal [place]] Furosemide [Lasix] 20 mg PO BID 02/25/23 11/22/24 History Multivitamin (Unknown Dose) 1 dose PO QAM 12/22/23 11/22/24 History Saw/Vit E/Sod Terrie/Lyc/Beta/Pyg 1 each PO QAM 12/22/23 11/22/24 History [Prostate Health Caplet] Spironolactone [Aldactone] 12.5 mg PO DAILY 12/31/23 11/22/24 History Losartan [Cozaar] 25 mg PO DAILY 02/17/24 11/22/24 History Metoprolol Tartrate 25 mg PO DAILY 02/17/24 11/22/24 History Pantoprazole [Protonix] 40 mg PO DAILY 02/17/24 11/22/24 History Potassium Chloride 10 meq PO DAILY 02/17/24 11/22/24 History Vitamin D3 1 dose PO HS 02/17/24 11/22/24 History Rivaroxaban [Xarelto] 20 mg PO DAILY 11/22/24 11/22/24 History Allergies Allergy/AdvReac Type Severity Reaction Status Date / Time clindamycin [From Cleocin] Allergy Anaphylaxis Verified 02/21/24 06:42 Physical Exam Vitals: Vital Signs Temp Pulse Pulse Resp BP BP Pulse Ox 11/22/24 05:16 60 18 123/76 95 11/22/24 01:29 98.2 F 62 18 128/78 97 11/22/24 00:59 62 18 11/22/24 00:53 60 18 11/22/24 00:00 61 16 126/100 99 11/21/24 22:56 61 16 123/93 97 11/21/24 20:53 60 18 139/93 97 11/21/24 19:32 98.2 F 59 L 18 135/97 96 Intake and Output 11/21/24 11/22/24 11/22/24 22:59 06:59 14:59 Other: Voiding Method Urinal Weight 110.677 kg 106.7 kg Results 11/22/24 06:23 11/22/24 06:23 Cardiac Enzymes 11/21/24 11/21/24 11/22/24 Range/Units 20:51 20:51 06:23 AST 20 21 (17-59) U/L Troponin I 0.042 H* (0.000-0.034) ng/mL Coagulation 11/21/24 Range/Units 20:51 PT 14.9 H (10.0-12.5) sec APTT 27.3 (22.0-30.0) sec CBC 11/21/24 11/22/24 Range/Units 20:51 06:23 WBC 7.5 7.5 (3.8-10.6) k/uL RBC 4.24 L 4.09 L (4.30-5.90) m/uL Hgb 12.5 L 12.3 L (13.0-17.5) gm/dL Hct 41.3 40.4 (39.0-53.0) % Plt Count 134 L 128 L (150-450) k/uL Comprehensive Metabolic Panel 11/21/24 11/22/24 Range/Units 20:51 06:23 Sodium 140 138 (137-145) mmol/L Potassium 4.8 4.0 (3.5-5.1) mmol/L Chloride 107 108 H (98-107) mmol/L Carbon Dioxide 24 22 (22-30) mmol/L BUN 34 H 30 H (9-20) mg/dL Creatinine 1.32 H 1.22 (0.66-1.25) mg/dL Glucose 106 H 97 (74-99) mg/dL Calcium 8.8 8.6 (8.4-10.2) mg/dL AST 20 21 (17-59) U/L ALT 12 12 (4-49) U/L Alkaline Phosphatase 49 49 (38-126) U/L Total Protein 6.0 L 5.8 L (6.3-8.2) g/dL Albumin 3.5 3.2 L (3.5-5.0) g/dL Current Medications Generic Name Dose Route Start Last Admin Trade Name Freq PRN Reason Stop Dose Admin Hydrocodone Bitart/Acetaminophen 1 each 11/22/24 02:43 Hydrocodone/Apap 7.5-325mg 1 Each Tab PO BID PRN Pain Albuterol Sulfate 2.5 mg 11/22/24 08:00 Albuterol Nebulized 2.5 Mg/3 Ml INHALATION RT-BID ЕЛЕНА Albuterol/Ipratropium 3 ml 11/22/24 00:11 11/22/24 00:53 Ipratropium-Albuterol 3 Ml Neb INHALATION 3 ml RT-TID PRN Administration Shortness Of Breath Or Wheezing Atorvastatin Calcium 20 mg 11/22/24 21:00 Atorvastatin 20 Mg Tab PO HS ЕЛЕНА Doxazosin Mesylate 4 mg 11/22/24 21:00 Doxazosin 4 Mg Tab PO HS [facility] Furosemide 20 mg 11/22/24 09:00 Furosemide 20 Mg Tab PO BID [facility] Guaifenesin 600 mg 11/22/24 05:23 Guaifenesin 600 Mg Tablet.Er PO Q12HR PRN Congestion Hydromorphone HCl 1 mg 11/21/24 21:46 Hydromorphone 1 Mg/Ml 1 Ml Syringe IVP Q3HR PRN Severe Pain (Scale 7 to 10) Losartan Potassium 25 mg 11/22/24 09:00 Losartan 25 Mg Tab PO DAILY [facility] Metoprolol Tartrate 25 mg 11/22/24 09:00 Metoprolol Tartrate 25 Mg Tab PO DAILY [facility] Montelukast Sodium 10 mg 11/22/24 21:00 Montelukast 10 Mg Tab PO HS [facility] Naloxone HCl 0.2 mg 11/21/24 21:46 Naloxone 0.4 Mg/Ml 1 Ml Vial IV Q2M PRN Opioid Reversal Ondansetron HCl 4 mg 11/21/24 21:46 Ondansetron 4 Mg/2 Ml Vial IVP Q8HR PRN Nausea And Vomiting Pantoprazole Sodium 40 mg 11/22/24 09:00 Pantoprazole 40 Mg Tablet PO DAILY [facility] Potassium Chloride 10 meq 11/22/24 09:00 Potassium Chloride Er 10 Meq Tab.Er.Prt PO DAILY [facility] Rivaroxaban 20 mg 11/22/24 09:00 Rivaroxaban 20 Mg Tab PO DAILY [facility] Protocol Spironolactone 12.5 mg 11/22/24 09:00 Spironolactone 25 Mg Tab PO DAILY [facility] Intake and Output 11/21/24 11/22/24 11/22/24 22:59 06:59 14:59 Other: Voiding Method Urinal Weight 110.677 kg 106.7 kg 11/22/24 06:23 11/22/24 06:23
[2024-11-22] MEDS: METOPROLOL TARTRATE 25 MG TAB PO SCH (08:09)
[2024-11-22] MEDS: POTASSIUM CHLORIDE ER 10 MEQ TAB.ER.PRT PO SCH (08:09)
[2024-11-22] MEDS: PANTOPRAZOLE 40 MG TABLET PO SCH (08:10)
[2024-11-22] MEDS: RIVAROXABAN 20 MG TAB PO SCH (08:10)
[2024-11-22] MEDS: FUROSEMIDE 20 MG TAB PO SCH (08:10)
[2024-11-22] MEDS: LOSARTAN 25 MG TAB PO SCH (08:10)
[2024-11-22] MEDS: SPIRONOLACTONE 25 MG TAB PO SCH (08:10)
[2024-11-22] MEDS: ALBUTEROL NEBULIZED 2.5 MG/3 ML INHALATION SCH (08:21)
--- NOTE | 2024-11-22 10:45 | US ---
EXAMINATION TYPE: US carotid duplex BILAT DATE OF EXAM: 11/22/2024 COMPARISON: NONE CLINICAL INDICATION: Male, 79 years old with history of hx of syncopal episode; syncope Additional History: .... TECHNIQUE: Grayscale, color Doppler and spectral Doppler evaluation of the bilateral carotid systems and vertebral arteries. Indirect Doppler criteria was utilized. FINDINGS: EXAM MEASUREMENTS: RIGHT: Peak Systolic Velocity (PSV) cm/sec ----- Right CCA: 48.1 ----- Right ICA: 74.7 ----- Right ECA: 70.2 ICA/CCA ratio: 1.6 RIGHT: End Diastole cm/sec ----- Right CCA: 9.7 ----- Right ICA: 21.4 ----- Right ECA: 7.8 LEFT: Peak Systolic Velocity (PSV) cm/sec ----- Left CCA: 50.7 ----- Left ICA: 92.9 ----- Left ECA: 55.9 ICA/CCA ratio: 1.8 LEFT: End Diastole cm/sec ----- Left CCA: 11 ----- Left ICA: 28.6 ----- Left ECA: 7.8 VERTEBRALS (direction of flow): Right Vertebral: Antegrade Left Vertebral: Antegrade Rhythm: Normal QUARTER FOLDER NOTES: Vessels dive deep. No significant stenosis seen Color Doppler imaging shows patency with blood flow throughout the carotid artery. Spectral waveforms are within normal limits. IMPRESSION: Right: No hemodynamically significant stenosis. Left: No hemodynamically significant stenosis. Criteria for Assigning % of Stenosis / Diameter reduction (Estimation based on the indirect measurements of the internal carotid artery velocities (ICA PSV). 1. Normal (no stenosis)=ICA PSV < 125 cm/s: ratio < 2.0: ICA EDV<40 cm/s. 2. Less than 50% stenosis=ICA PSV < 125 cm/s: ratio < 2.0: ICA EDV<40 cm/s. 3. 50 to 69% stenosis=ICA PSV of 125 to 230 cm/s: ration 2.0 ? 4.0: ICA EDV 40-100 cm/s. 4. Greater than 70% stenosis to near occlusion= ICA PSV > 230 cm/s: ratio > 4.0: ICA EDV > 100 cm/s. 5. Near occlusion= ICA PSV velocities may be low or undetectable: variable ratio and ICA EDV. 6. Total occlusion=unable to detect flow. [facility], , 11/22/2024 10:43 AM
--- NOTE | 2024-11-22 17:00 | CA ---
Transthoracic Echo Report Name: iNko Yuan Age: 79 Gender: M : 1945 Exam Date: 11/22/2024 14:42 Exam Location: [place] [facility] Ht (in): 76 Wt (lb): 235 Ordering Physician: Angel Luis Taylor MD ([id number]) Attending/Referring Phys: Keno Writer / Runner Lolita Torres RDCS Procedure CPT: Indications: defibrillator discharge Cardiac Hx: Technical Quality: Good Contrast 1: Total Dose (mL): Contrast 2: Total Dose (mL): MEASUREMENTS (Male / Female) Normal Values 2D ECHO LV Diastolic Diameter PLAX 7.2 cm 4.2 - 5.9 / 3.9 - 5.3 cm LV Systolic Diameter PLAX 5.8 cm IVS Diastolic Thickness 1.1 cm 0.6 - 1.0 / 0.6 - 0.9 cm LVPW Diastolic Thickness 1.1 cm 0.6 - 1.0 / 0.6 - 0.9 cm LV Relative Wall Thickness 0.3 LVOT Diameter 2.1 cm LV Diastolic Volume MOD BP 358.5 cm??? 67 - 155 / 56 - 104 cm??? LV Systolic Volume MOD BP 273.7 cm??? 22 - 58 / 19 - 49 cm??? LV Ejection Fraction MOD BP 23.6 % >= 55 % LV Cardiac Index MOD BP 2112.6 cm???/min???m??? LV Diastolic Volume MOD 4C 332.3 cm??? LV Systolic Volume MOD 4C 257.2 cm??? LV Ejection Fraction MOD 4C 22.6 % LV Cardiac Index MOD 4C 1874.1 cm???/min???m??? LV Diastolic Length 4C 11.8 cm LV Systolic Length 4C 10.9 cm LV Diastolic Volume MOD 2C 388.1 cm??? LV Systolic Volume MOD 2C 278.0 cm??? LV Ejection Fraction MOD 2C 28.4 % LV Cardiac Index MOD 2C 2744.2 cm???/min???m??? LV Diastolic Length 2C 11.8 cm LV Systolic Length 2C 10.4 cm LA Volume 275.3 cm??? 18 - 58 / 22 - 52 cm??? LA Volume Index 114.4 cm???/m??? 16 - 28 cm???/m??? DOPPLER AV Peak Velocity 149.2 cm/s AV Peak Gradient 8.9 mmHg AV Mean Velocity 103.3 cm/s AV Mean Gradient 4.9 mmHg AV Velocity Time Integral 22.4 cm LVOT Peak Velocity 113.3 cm/s LVOT Peak Gradient 5.1 mmHg LVOT Velocity Time Integral 17.4 cm LVOT Stroke Volume 58.1 cm??? LVOT Stroke Volume Index 24.5 ml/m??? LVOT Cardiac Index 1448.5 cm???/min???m??? AV Area Cont Eq vti 2.6 cm??? AV Area Cont Eq pk 2.5 cm??? MV Peak Velocity 139.9 cm/s MV Peak Gradient 7.8 mmHg MV Mean Velocity 68.1 cm/s MV Mean Gradient 2.4 mmHg MV Velocity Time Integral 42.2 cm MV Area PHT 5.1 cm??? MR Peak Velocity 442.1 cm/s MR Peak Gradient 78.2 mmHg MR Flow Rate PISA 182.0 cm???/s MR ERO PISA 0.4 cm??? MR Regurgitant Volume PISA 54.3 cm??? Mitral E Point Velocity 93.2 cm/s Mitral A Point Velocity 40.8 cm/s Mitral E to A Ratio 2.3 MV Deceleration Time 148.7 ms TR Peak Velocity 392.8 cm/s TR Peak Gradient 61.7 mmHg Right Atrial Pressure 15.0 mmHg Pulmonary Artery Systolic Pressu 76.7 mmHg Right Ventricular Systolic Press 76.7 mmHg PV Peak Velocity 91.8 cm/s PV Peak Gradient 3.4 mmHg FINDINGS Left Ventricle Left ventricular ejection fraction is estimated at 20-25 %. Mildly increased septal wall thickness. Severely increased left ventricular diastolic diameter. Severely increased left ventricular diastolic volume. Severely increased left ventricular systolic volume. Severely decreased left ventricular ejection fraction wiith regional variability. Right Ventricle Moderate to severe right ventricular dilatation. Mildly reduced right ventricular global systolic function. Right Atrium Severe right atrial dilatation. Catheter/pacemaker wire in the right atrial cavity. Left Atrium Severely increased left atrial volume. Severely increased left atrial area. Mitral Valve Mitral valve thickened. Tethered mitral valve. No evidence for mitral valve prolapse. No mitral stenosis. Severe mitral regurgitation. Aortic Valve Trileaflet aortic valve. Aortic valve sclerosis. No aortic stenosis. Mild aortic regurgitation. Tricuspid Valve Structurally normal tricuspid valve. No tricuspid stenosis. [id number] tricuspid regurgitation. Pulmonic Valve Structurally normal pulmonic valve. No pulmonic stenosis. Trace pulmonic regurgitation. Pericardium No pericardial effusion. Aorta Aortic annulus normal. Ascending aorta not well visualized. CONCLUSIONS Cardiomyopathy with severe LV systolic dysfunction Inferior wall hypokinesis Severe mitral regurgitation Moderate to severe tricuspid regurgitation Severe pulmonary hypertension Previewed by: Dr. Indra Tim MD (Electronically Signed) Final Date: 22 November 2024 16:59
[2024-11-22] MEDS ORDERED: IPRATROPIUM-ALBUTEROL 3 ML NEB INHALATION PRN (17:36)
--- NOTE | 2024-11-22 17:42 | P.HPIM ---
History of Present Illness H&P Date: 11/22/24 Patient is a 79-year-old male with a history of cardiomyopathy status post ICD, A-fib on anticoagulation, CAD status post stent, hypertension, hyperlipidemia, sleep apnea on CPAP, COPD was brought to the ER via EMS with episode of syncope yesterday. Patient states that he was taking his trash outside yesterday when he suddenly felt dizzy and heard a loud clicking noise from his defibrillator and lost consciousness. Patient is unsure for how long he was unconscious. However, he woke up and called his for help who called EMS who then brought patient to the ER for further evaluation. Patient also reports 3 days of diarrhea associate with nausea vomiting which he reports has improved. Patient also reports experiencing tinnitus has both ears after he regained consciousness post syncopal episode. At the time of interview, patient continues to feel dizzy after getting up from sitting position. However denies tinnitus, shortness of breath, chest pain, numbness, tingling or weakness in upper or lower extremity. Patient denies swelling in legs, orthopnea, PND. CT brain shows no acute intracranial process. Chronic upper ultrasound shows no stenosis. Pelvic x-ray shows no fracture. Chest x-ray shows no acute cardiopulmonary process. EKG shows electronic ventricular pacemaker findings with ventricular rate of 65 bpm, QRS duration 134 ms, QTc 429, nonspecific ST-T wave changes noted. Echocardiogram shows left ventricular ejection fraction of 20 to 25%. Cardiomyopathy with severe LV systolic function, inferior wall hypokinesis, severe mitral regurgitation, moderate to severe tricuspid regurgitation, severe pulmonary hypertension. Laboratory evaluation show WBC 7.5, hemoglobin 12.3, platelet count 128, sodium 138, potassium 4.0, BUN 30, creatinine 1.22, troponin I 0.042, 0.052, 0.039, NT proBNP 9720. Respiratory viral serologies negative Vital signs on arrival 98.2 L Fahrenheit, respiratory rate 18, pulse rate 60, blood pressure 135/97, oxygen saturation 96% room air Review of systems: Pertinent positives and negatives as discussed in HPI, a complete review of systems was performed and all other systems are negative. Social history: Former smoker Physical examination: Vital signs reviewed General: non toxic, no distress, appears at stated age, overweight Derm: no unusual rashes/lesions, warm Head: atraumatic, normocephalic, symmetric Eyes: EOMI, no lid lag, anicteric sclera, pupils equal round reactive to light ENT: Nose and ears atraumatic Neck: No cervical lymphadenopathy, trachea midline, supple Mouth: no lip lesion, mucus membranes moist Cardiovascular: S1S2 reg, 3/6 systolic murmur, positive dorsalis pedis pulse bilateral, no edema Lungs: CTA bilateral, no rhonchi, no rales, no accessory muscle use Abdominal: soft, nontender to palpation, no guarding Ext: muscle strength 5 out of 5 in all 4 extremities grossly, no gross muscle atrophy, no contractures, Neuro: CN II-XI grossly intact, no gross focal neuro deficits Psych: Alert, oriented, appropriate affect Assessment/Plan: This is a Patient is a 79-year-old male with a history of cardiomyopathy status post ICD, A-fib on anticoagulation, CAD status post stent, hypertension, hyperl ipidemia, sleep apnea on CPAP, COPD was brought to the ER via EMS with episode of syncope yesterday. . Case was discussed with the Emergency Room provider and decision was made to admit the patient for syncope. Labs and images: CT brain shows no acute intracranial process. Carotid Doppler ultrasound shows no stenosis. Pelvic x-ray shows no fracture. Chest x-ray shows no acute cardiopulmonary process. EKG shows electronic ventricular pacemaker findings with ventricular rate of 65 bpm, QRS duration 134 ms, QTc 429, nonspecific ST-T wave changes noted. Echocardiogram shows left ventricular ejection fraction of 20 to 25%. Cardiomyopathy with severe LV systolic function, inferior wall hypokinesis, severe mitral regurgitation, moderate to severe tricuspid regurgitation, severe pulmonary hypertension. Laboratory evaluation show WBC 7.5, hemoglobin 12.3, platelet count 128, sodium 138, potassium 4.0, BUN 30, creatinine 1.22, troponin I 0.042, 0.052, 0.039, NT proBNP 9720. Active: #Syncope likely secondary to orthostatic hypotension versus cardiac versus vasovagal #Ischemic cardiomyopathy status post ICD #HFrEF Consult cardiology AICD interrogation Order orthostatic vitals Fall precautions CT brain, carotid Doppler ultrasound and EKG unremarkable Echocardiogram shows cardiomyopathy with severe LV systolic function with LVEF of 20 to 25% Cardiac telemetry Resume GDMT: Aldactone 12.5 mg p.o. daily, Lopressor 25 mg p.o. daily, losartan 25 mg p.o. daily, Lasix 20 mg p.o. twice daily Cardiac troponin trending flat #Normocytic anemia Monitor CBC Chronic conditions: Hypertension, hyperlipidemia, COPD, A-fib, BPH, GERD Resume Xarelto 20 mg p.o. Protonix 40 mg p.o., Singulair 10 mg p.o., Cozaar 25 mg p.o., doxazosin 4 mg p.o., Lipitor 20 mg p.o. DVT prophylaxis: Xarelto 20 mg p.o. daily GI prophylaxis: Protonix 40 mg p.o. daily F: None E: Replete as needed N: Heart healthy diet A: Ambulatory baseline The patient is admitted with an anticipated < than 2 midnight stay for evaluation of syncope CODE STATUS: Full code Discussed with: Patient Anticipated discharge place: Pending clinical course Dictation was produced using Scalado dictation software. Please excuse any grammatical, word or spelling errors. Past Medical History Past Medical History: Atrial Fibrillation, Blood Disorder, Heart Failure, COPD, GI Bleed, Hyperlipidemia, Hypertension, Osteoarthritis (OA), Prostate Disorder, Sleep Apnea/CPAP/BIPAP Additional Past Medical History / Comment(s): REFLEX SYMPATHETIC DYSTROPHY, PACEMAKER/AICD(EdxactTRONIC), USES C-PAP MACHINE, ENLARGED PROSTATE, AORTIC ANEURYSM; david swollen lower legs, david knee arthritis, cyst on left kidney. Iron deficiency anemia. History of Any Multi-Drug Resistant Organisms: None Reported Past Surgical History: AICD, Back Surgery, Hernia Repair, Pacemaker Additional Past Surgical History / Comment(s): BACK SURGERY X3, UMBILICAL HERNIA SURGERY'S. Benign abd mass removed, mass removed from throat. Aneurysm removed from lt hand. Nasal polyps removed. David cataract surgery. Colonoscopy 1 month ago at [facility] with Dr. Grimaldo. Past Anesthesia/Blood Transfusion Reactions: No Reported Reaction Additional Past Anesthesia/Blood Transfusion Reaction / Comment(s): Received blood transfusion at [facility] for low Hgb- no problems. Type of Cardiac Device: Biventricular Pacemaker, Permanent Pacemaker, AICD Device Placement Date:: 12/30/23 Past Psychological History: No Psychological Hx Reported Smoking Status: Former smoker Past Alcohol Use History: Rare Additional Past Alcohol Use History / Comment(s): SMOKING FOR 50 YEARS OR MORE, USED TO SMOKE 1 PPD, QUIT 10 years ago Past Drug Use History: None Reported Additional Drug Use History / Comment(s): MARIJUANA COOKIES PRN PAIN - Past Family History Brother(s) Family Medical History: Deep Vein Thrombosis (DVT) Father Family Medical History: Cancer Additional Family Medical History / Comment(s): LIP CANCER Mother Additional Family Medical History / Comment(s): anuersym of the brain Medications and Allergies Home Medications Medication Instructions Recorded Confirmed Type Hydrocodone/Acetaminophen [[place] 1 tab PO BID PRN 02/27/14 11/22/24 History 7.5-325] Montelukast [Singulair] 10 mg PO HS 02/27/14 11/22/24 History Simvastatin [Zocor] 40 mg PO HS 02/27/14 11/22/24 History Terazosin [Hytrin] 5 mg PO HS 02/27/14 11/22/24 History Azelastine HCl [Astelin Nasal 2 spr EA NOSTRIL BID 02/25/23 11/22/24 History [place]] Fluticasone Nasal [place] [Flonase 2 spr EA NOSTRIL BID 02/25/23 11/22/24 History Nasal [place]] Furosemide [Lasix] 20 mg PO BID 02/25/23 11/22/24 History Spironolactone [Aldactone] 12.5 mg PO DAILY 12/31/23 11/22/24 History Pantoprazole [Protonix] 40 mg PO DAILY 02/17/24 11/22/24 History Potassium Chloride 20 meq PO DAILY 02/17/24 11/22/24 History Albuterol Sulfate [Ventolin HFA] 2 puff INHALATION RT-Q4H PRN 11/22/24 11/22/24 History Budesonide/Formoterol Fumarate 2 puff INHALATION RT-BID 11/22/24 11/22/24 History [Breyna 160-4.5 Mcg Inhaler] Cholecalciferol [Vitamin D3 (25 25 mcg PO HS 11/22/24 11/22/24 History Mcg = 1000 Iu)] Ferrous Sulfate [Feosol] 325 mg PO DIRECTED 11/22/24 11/22/24 History Ipratropium-Albuterol Nebulize 3 ml INHALATION RT-Q6H PRN 11/22/24 11/22/24 History [Duoneb 0.5 mg-3 mg/3 ml Soln] Levalbuterol Hfa Inhaler [Xopenex 1 puff INHALATION RT-Q6H PRN 11/22/24 11/22/24 History Hfa Inhaler] Losartan [Cozaar] 25 mg PO DAILY 11/22/24 11/22/24 History Metoprolol Succinate (ER) [Toprol 25 mg PO BID 11/22/24 11/22/24 History Xl] Potassium Chloride ER [K-Dur 10] 10 meq PO HS 11/22/24 11/22/24 History Rivaroxaban [Xarelto] 20 mg PO HS 11/22/24 11/22/24 History Sucralfate [Carafate] 1 gm PO AC-TID 11/22/24 11/22/24 History metOLazone 2.5 mg PO DAILY 11/22/24 11/22/24 History Allergies Allergy/AdvReac Type Severity Reaction Status Date / Time clindamycin [From Cleocin] Allergy Anaphylaxis Verified 11/22/24 11:06 Physical Exam Vitals: Vital Signs Temp Pulse Pulse Resp BP BP Pulse Ox 11/22/24 08:36 60 11/22/24 08:25 96 11/22/24 08:22 56 L 11/22/24 07:50 97.4 F L 58 L 17 127/83 95 11/22/24 05:16 60 18 123/76 95 11/22/24 01:29 98.2 F 62 18 128/78 97 11/22/24 00:59 62 18 11/22/24 00:53 60 18 11/22/24 00:00 61 16 126/100 99 11/21/24 22:56 61 16 123/93 97 11/21/24 20:53 60 18 139/93 97 11/21/24 19:32 98.2 F 59 L 18 135/97 96 Intake and Output 11/21/24 11/22/24 11/22/24 22:59 06:59 14:59 Other: Voiding Method Urinal Urinal Weight 110.677 kg 106.7 kg Results CBC & Chem 7: 11/22/24 06:23 11/22/24 06:23 Labs: Abnormal Lab Results - Last 24 Hours (Table) 11/21/24 11/21/24 11/21/24 Range/Units 20:51 20:51 20:51 RBC 4.24 L (4.30-5.90) m/uL Hgb 12.5 L (13.0-17.5) gm/dL MCHC 30.3 L (31.0-37.0) g/dL Plt Count 134 L (150-450) k/uL Lymphocytes # 0.8 L (1.0-4.8) k/uL PT 14.9 H (10.0-12.5) sec INR 1.4 H (<1.2) Chloride (98-107) mmol/L BUN 34 H (9-20) mg/dL Creatinine 1.32 H (0.66-1.25) mg/dL Glucose 106 H (74-99) mg/dL Total Bilirubin 1.4 H (0.2-1.3) mg/dL Troponin I (0.000-0.034) ng/mL Total Protein 6.0 L (6.3-8.2) g/dL Albumin (3.5-5.0) g/dL 11/21/24 11/22/24 11/22/24 Range/Units 20:51 06:23 06:23 RBC 4.09 L (4.30-5.90) m/uL Hgb 12.3 L (13.0-17.5) gm/dL MCHC 30.5 L (31.0-37.0) g/dL Plt Count 128 L (150-450) k/uL Lymphocytes # 0.8 L (1.0-4.8) k/uL PT (10.0-12.5) sec INR (<1.2) Chloride 108 H (98-107) mmol/L BUN 30 H (9-20) mg/dL Creatinine (0.66-1.25) mg/dL Glucose (74-99) mg/dL Total Bilirubin (0.2-1.3) mg/dL Troponin I 0.042 H* (0.000-0.034) ng/mL Total Protein 5.8 L (6.3-8.2) g/dL Albumin 3.2 L (3.5-5.0) g/dL 11/22/24 Range/Units 07:58 RBC (4.30-5.90) m/uL Hgb (13.0-17.5) gm/dL MCHC (31.0-37.0) g/dL Plt Count (150-450) k/uL Lymphocytes # (1.0-4.8) k/uL PT (10.0-12.5) sec INR (<1.2) Chloride (98-107) mmol/L BUN (9-20) mg/dL Creatinine (0.66-1.25) mg/dL Glucose (74-99) mg/dL Total Bilirubin (0.2-1.3) mg/dL Troponin I 0.052 H* (0.000-0.034) ng/mL Total Protein (6.3-8.2) g/dL Albumin (3.5-5.0) g/dL Thrombosis Risk Factor Assmnt - Choose All That Apply Any of the Below Risk Factors Present?: No Other Risk Factors: Yes Each Risk Factor Represents 3 Points: Age 75 years or older Thrombosis Risk Factor Assessment Total Risk Factor Score: 3 Thrombosis Risk Factor Assessment Level: Moderate Risk
[2024-11-22] MEDS: FERROUS SULFATE 325 MG TAB PO SCH (18:36)
[2024-11-22] MEDS: MONTELUKAST 10 MG TAB PO SCH (20:43)
[2024-11-22] MEDS: ATORVASTATIN 20 MG TAB PO SCH (20:43)
[2024-11-22] MEDS: DOXAZOSIN 4 MG TAB PO SCH (20:43)
[2024-11-22] MEDS: CHOLECALCIFEROL 25 MCG (1000 IU) TABLET PO SCH (20:43)
[2024-11-22] MEDS: SYMBICORT 160-4.5 MCG INHALER INHALATION SCH (20:55)
[2024-11-23 08:53] LABS: Basophils % (A) 0 %; Eosinophils # (A) 0.5 k/uL (0-0.7); Eosinophils % (A) 8 %; HCT 41.1 % (39.0-53.0); HGB 12.5 gm/dL (13.0-17.5); Hypochromasia Moderate; Lymphocytes % (A) 16 %; MCH 30.2 pg (25.0-35.0); MCHC 30.4 g/dL (31.0-37.0); MCV 99.1 fL (80.0-100.0); Macrocytosis Slight; Mean Platelet Volume 9.7; Monocytes # (A) 0.5 k/uL (0-1.0); Monocytes % (A) 7 %; Neutrophils # (A) 4.3 k/uL (1.3-7.7); Neutrophils % (A) 66 %; Platelet Count 130 k/uL (150-450); RBC 4.14 m/uL (4.30-5.90); RDW 14.9 % (11.5-15.5); WBC 6.6 k/uL (3.8-10.6)
--- NOTE | 2024-11-23 08:57 | P.PN ---
Subjective Progress Note Date: 11/23/24 The patient is a 79-year-old gentleman with a past medical history significant for cardiomyopathy status post ICD as well as history of CAD according to home with the prior stent with unknown details at this point as well as permanent atrial fibrillation and multiple comorbid conditions. He presented to the hospital with an episode of syncope with the patient was in his usual state of health where he was taking the trash outside home yesterday when he suddenly did have an episode of syncope with no prodromal symptoms and no other cardiovascular symptoms of any pain in the chest or shortness of breath or any feeling of heart racing or fluttering. He presented to the emergency department where he underwent further evaluation including an EKG showing underlying atrial fibrillation with ventricular paced rhythm. Also he underwent a chest x-ray came in to be unremarkable and CT scan of the brain came to be unremarkable with the rest of the blood work overall came to be unremarkable besides mildly elevated troponin and that was the first troponin. Currently he is asymptomatic and currently he is stable in terms of blood pressure and heart rate. He is on oral anticoagulation with Xarelto. The physical examination is remarkable for regular rhythm with a systolic murmur at the right upper sternal border with clear breathing sounds bilaterally and no edema was noted November 23, 2024 The patient was seen and evaluated this morning with he is asymptomatic with his hemodynamically stable he underwent an ICD interrogation which showed V-fib/V. tach terminated by a shock. The echo showed severe cardiomyopathy with severe mitral regurgitation. He is on metoprolol to tartrate. I am going to switch him to metoprolol succinate and add amiodarone to the current medical regimen. He was advised to stay for additional 24 hours but he would like to go home. Am going to start him on amiodarone orally and he will follow-up with Dr. Lewis in the office. The physical examination is remarkable for regular rhythm with a soft systolic murmur and clear breathing sounds bilaterally and no edema was noted Assessment Syncopal episode concerning for cardiac etiology in a gentleman with cardi omyopathy and history of AICD The ICD interrogation showed ventricular fibrillation terminated by a shock Evidence of myocardial injury with no evidence of ischemia as of now History of cardiomyopathy History of CAD Permanent atrial fibrillation Plan Continue the current medical regimen DC metoprolol tartrate and start metoprolol succinate Add amiodarone to the current medical regimen The patient can be discharged home Objective - Vital Signs Vital signs: Vital Signs Temp 97.6 F 11/23/24 08:48 Pulse 60 11/23/24 08:48 Resp 19 11/23/24 08:48 BP 110/64 11/23/24 08:48 Pulse Ox 94 L 11/23/24 08:48 FiO2 Intake & Output 11/22/24 11/23/24 11/23/24 18:59 06:59 18:59 Intake Total 540 118 Balance 540 118 Weight 107 kg Intake: Oral 540 118 Other: Voiding Method Urinal Urinal # Voids 3 - Labs CBC & Chem 7: 11/22/24 06:23 11/22/24 06:23 Labs: Abnormal Lab Results - Last 24 Hours (Table) 11/22/24 11/22/24 Range/Units 07:58 10:47 Troponin I 0.052 H* 0.039 H* (0.000-0.034) ng/mL
[2024-11-23 09:00] LABS: African American GFR (CKD) 75 (>60 ml/min/1.73 sqM); Anion Gap 10 mmol/L; Blood Urea Nitrogen 24 mg/dL (9-20); Calcium 8.7 mg/dL (8.4-10.2); Carbon Dioxide 21 mmol/L (22-30); Chloride 105 mmol/L (98-107); Glucose 134 mg/dL (74-99); Non-African American GFR(CKD) 65 (>60 ml/min/1.73 sqM); Potassium 3.9 mmol/L (3.5-5.1); Sodium 136 mmol/L (137-145)
[2024-11-23] MEDS: METOPROLOL SUCCINATE (ER) 50 MG TAB.ER.24H PO SCH (09:54)
[2024-11-23] MEDS: AMIODARONE 200 MG TAB PO SCH (09:55)
[2024-11-23 11:45] VITALS: BP 128/68; PULSE 58; RESP 15; TEMP 97.8
--- NOTE | 2024-11-23 17:08 | P.DS ---
Providers Date of admission: 11/21/24 21:48 Attending physician: Keenan Muro Consults: 11/21/24 21:46 Consult Physician Routine Consulting Provider: Ahsan Peterson Consult Reason/Comments: defibFiring Do you want consulting provider notified?: Yes Primary care physician: Candice Freitas Hospital Course: Discharge Diagnosis: #ICD interrogation showed V-fib terminated by shock #Syncope likely secondary to orthostatic hypotension versus cardiac versus vasovagal #Ischemic cardiomyopathy status post ICD #HFrEF #Normocytic anemia Hospital Course: Patient is a 79-year-old male with a history of cardiomyopathy status post ICD, A-fib on anticoagulation, CAD status post stent, hypertension, hyperlipidemia, sleep apnea on CPAP, COPD was brought to the ER via EMS with episode of syncope yesterday. Patient states that he was taking his trash outside yesterday when he suddenly felt dizzy and heard a loud clicking noise from his defibrillator and lost consciousness. Patient is unsure for how long he was unconscious. However, he woke up and called his for help who called EMS who then brought patient to the ER for further evaluation. Patient also reports 3 days of diarrhea associate with nausea vomiting which he reports has improved. Patient also reports experiencing tinnitus has both ears after he regained consciousness post syncopal episode. At the time of interview, patient continues to feel dizzy after getting up from sitting position. However denies tinnitus, shortness of breath, chest pain, numbness, tingling or weakness in upper or lower extremity. Patient denies swelling in legs, orthopnea, PND. CT brain shows no acute intracranial process. Chronic upper ultrasound shows no stenosis. Pelvic x-ray shows no fracture. Chest x-ray shows no acute cardiopulmonary process. EKG shows electronic ventricular pacemaker findings with ventricular rate of 65 bpm, QRS duration 134 ms, QTc 429, nonspecific ST-T wave changes noted. Echocardiogram shows left ventricular ejection fraction of 20 to 25%. Cardiomyopathy with severe LV systolic function, inferior wall hypokinesis, severe mitral regurgitation, moderate to severe tricuspid regurgitation, severe pulmonary hypertension. Laboratory evaluation show WBC 7.5, hemoglobin 12.3, platelet count 128, sodium 138, potassium 4.0, BUN 30, creatinine 1.22, troponin I 0.042, 0.052, 0.039, NT proBNP 9720. Respiratory viral serologies negative Vital signs on arrival 98.2 L Fahrenheit, respiratory rate 18, pulse rate 60, blood pressure 135/97, oxygen saturation 96% room air Cardiology was consulted. ICD interrogation showed V-fib terminated by shock. Patient not complaining of any dizziness or chest pain. Patient is hemodynamically stable and not medically optimized for discharge. Amiodarone 400 mg p.o. twice daily as prescribed. Patient will follow-up with primary care physician and cardiology. Discharge disposition: Home with self-care Vital signs reviewed. Gen: in no apparent distress, resting comfortably in bed Eyes: PERRLA, EOMI, no scleral injection or icterus HENT: normocephalic, atraumatic, good hearing acuity, moist mucous membranes Neck: full range of motion Resp: CTAB, no rales, rhonchi, or wheezes CVS: normal S1 and S2, no murmurs, rubs or gallops, no edema GI: soft, NTTP, ND, no hepatosplenomegaly : no suprapubic tenderness, no CVAT, messina catheter not present MSK: no clubbing, no cyanosis, no noted contractures of extremities Skin: no noted rashes, petechiae; temperature of skin is appropriate Neuro: moving all extremities without signs of weakness, CN II-XII intact Psych: cooperative, euthymic mood, insight and judgment intact Dictation was produced using [employer] dictation software. Please excuse any grammatical, word or spelling errors. Patient Condition at Discharge: Stable Plan - Discharge Summary New Discharge Prescriptions: New Amiodarone [Cordarone] 400 mg PO BID #60 tab Continue Hydrocodone/Acetaminophen [[place] 7.5-325] 1 tab PO BID PRN PRN Reason: Pain Terazosin [Hytrin] 5 mg PO HS Simvastatin [Zocor] 40 mg PO HS Montelukast [Singulair] 10 mg PO HS Azelastine HCl [Astelin Nasal [place]] 2 spr EA NOSTRIL BID Fluticasone Nasal [place] [Flonase Nasal [place]] 2 spr EA NOSTRIL BID Furosemide [Lasix] 20 mg PO BID Spironolactone [Aldactone] 12.5 mg PO DAILY Potassium Chloride 20 meq PO DAILY Rivaroxaban [Xarelto] 20 mg PO HS Losartan [Cozaar] 25 mg PO DAILY Budesonide/Formoterol Fumarate [Breyna 160-4.5 Mcg Inhaler] 2 puff INHALATION RT-BID metOLazone 2.5 mg PO DAILY Metoprolol Succinate (ER) [Toprol XL] 25 mg PO BID Sucralfate [Carafate] 1 gm PO AC-TID Ferrous Sulfate [Iron (65 MG Elemental)] 325 mg PO DIRECTED Levalbuterol Hfa Inhaler [Xopenex Hfa Inhaler] 1 puff INHALATION RT-Q6H PRN PRN Reason: Shortness Of Breath Pantoprazole [Protonix] 40 mg PO DAILY Cholecalciferol [Vitamin D3 (25 Mcg = 1000 Iu)] 25 mcg PO HS Potassium Chloride ER [K-Dur 10] 10 meq PO HS Albuterol Sulfate [Ventolin HFA] 2 puff INHALATION RT-Q4H PRN PRN Reason: Shortness Of Breath Ipratropium-Albuterol Nebulize [Duoneb 0.5 mg-3 mg/3 ml Soln] 3 ml INHALATION RT-Q6H PRN PRN Reason: Shortness Of Breath Discharge Medication List Hydrocodone/Acetaminophen [[place] 7.5-325] 1 tab PO BID PRN 02/27/14 [History] Montelukast [Singulair] 10 mg PO HS 02/27/14 [History] Simvastatin [Zocor] 40 mg PO HS 02/27/14 [History] Terazosin [Hytrin] 5 mg PO HS 02/27/14 [History] Azelastine HCl [Astelin Nasal [place]] 2 spr EA NOSTRIL BID 02/25/23 [History] Fluticasone Nasal [place] [Flonase Nasal [place]] 2 spr EA NOSTRIL BID 02/25/23 [History] Furosemide [Lasix] 20 mg PO BID 02/25/23 [History] Spironolactone [Aldactone] 12.5 mg PO DAILY 12/31/23 [History] Pantoprazole [Protonix] 40 mg PO DAILY 02/17/24 [History] Potassium Chloride 20 meq PO DAILY 02/17/24 [History] Albuterol Sulfate [Ventolin HFA] 2 puff INHALATION RT-Q4H PRN 11/22/24 [History] Budesonide/Formoterol Fumarate [Breyna 160-4.5 Mcg Inhaler] 2 puff INHALATION RT-BID 11/22/24 [History] Cholecalciferol [Vitamin D3 (25 Mcg = 1000 Iu)] 25 mcg PO HS 11/22/24 [History] Ferrous Sulfate [Iron (65 MG Elemental)] 325 mg PO DIRECTED 11/22/24 [History] Ipratropium-Albuterol Nebulize [Duoneb 0.5 mg-3 mg/3 ml Soln] 3 ml INHALATION RT-Q6H PRN 11/22/24 [History] Levalbuterol Hfa Inhaler [Xopenex Hfa Inhaler] 1 puff INHALATION RT-Q6H PRN 11/22/24 [History] Losartan [Cozaar] 25 mg PO DAILY 11/22/24 [History] Metoprolol Succinate (ER) [Toprol XL] 25 mg PO BID 11/22/24 [History] Potassium Chloride ER [K-Dur 10] 10 meq PO HS 11/22/24 [History] Rivaroxaban [Xarelto] 20 mg PO HS 11/22/24 [History] Sucralfate [Carafate] 1 gm PO AC-TID 11/22/24 [History] metOLazone 2.5 mg PO DAILY 11/22/24 [History] Amiodarone [Cordarone] 400 mg PO BID #60 tab 11/23/24 [Rx] Follow up Appointment(s)/Referral(s): Jocelyn Lewis MD [STAFF PHYSICIAN] - 12/04/24 10:00 am Candice Freitas MD [Primary Care Provider] - 1-2 days (Office is closed. Please call and schedule your follow up appointment. ) Patient Instructions/Handouts: Implantable Cardioverter Defibrillator (DC) Activity/Diet/Wound Care/Special Instructions: Please follow-up with your PCP and cardiology within 1 to 2 weeks. Discharge Disposition: HOME SELF-CARE
== END 2024-11-23 15:33 | disposition home or self-care (01) ==
LOC: EC 19:31 → 3SCARD 21:48
PROVIDERS: ADMIT Hospitalist; ATTEND Hospitalist
DX: T82.199A Other mechanical complication of unspecified cardiac device, initial encounter (principal); Y71.1 Therapeutic (nonsurgical) and rehabilitative cardiovascular devices associated with adverse incidents; I49.01 Ventricular fibrillation; R55 Syncope and collapse; I5A Non-ischemic myocardial injury (non-traumatic); I25.5 Ischemic cardiomyopathy; I49.3 Ventricular premature depolarization; I48.21 Permanent atrial fibrillation; I25.10 Atherosclerotic heart disease of native coronary artery without angina pectoris; I11.0 Hypertensive heart disease with heart failure; I50.22 Chronic systolic (congestive) heart failure; D64.9 Anemia, unspecified; J44.9 Chronic obstructive pulmonary disease, unspecified; E78.5 Hyperlipidemia, unspecified; G47.30 Sleep apnea, unspecified; N40.0 Benign prostatic hyperplasia without lower urinary tract symptoms; K21.9 Gastro-esophageal reflux disease without esophagitis; Z11.52 Encounter for screening for COVID-19; Z87.891 Personal history of nicotine dependence; Z95.5 Presence of coronary angioplasty implant and graft; Z95.810 Presence of automatic (implantable) cardiac defibrillator; Z79.01 Long term (current) use of anticoagulants; Z79.51 Long term (current) use of inhaled steroids; Z79.899 Other long term (current) drug therapy; Z88.1 Allergy status to other antibiotic agents
CPT/HCPCS: 96361; 96374; 99291; 36415; 94640 ×4; 94760; 93005; 93306; 83880; 80053 ×2; 80048; 84443; 82533; 83605; 83735 ×2; 84100 ×2; 84484 ×2; 85025 ×3; 85610; 85730; 87636; 72170; 71045; 93880; 72125; 70450; G0378 ×3; J2405; 99285

== ENCOUNTER → 2024-12-04 | Outpatient (CLI) | payer MEDICARE ==
[2024-12-04 15:16] LABS: HCT 44.1 % (39.6-50.0); HGB 13.2 g/dL (13.0-17.0); MCH 29.2 pg (27.0-32.0); MCHC 29.9 g/dL (32.0-37.0); MCV 97.6 FL (80.0-97.0); Mean Platelet Volume 11.3 FL (9.5-12.2); NRBC Per 100 WBC 0 X 10*3/uL (0.00-0.01); Platelet Count 220 X 10*3/uL (140-440); RBC 4.52 X 10*6/uL (4.40-5.60); RDW 14.8 % (11.5-14.5); WBC 10.12 X 10*3/uL (4.50-10.00)
[2024-12-04 15:32] LABS: ALT 14 U/L (10-49); AST 20 U/L (14-35); Albumin 3.8 g/dL (3.8-4.9); Albumin/Globulin Ratio 1.46 Ratio (1.60-3.17); Alkaline Phosphatase 69 U/L (41-126); BUN/Creat Ratio 18.85 Ratio (12.00-20.00); Blood Urea Nitrogen 24.5 mg/dL (9.0-27.0); Calcium 9.1 mg/dL (8.7-10.3); Carbon Dioxide 26.5 mmol/L (21.6-31.8); Chloride 106 mmol/L (96-109); Globulin 2.6 g/dL (1.6-3.3); Glucose 88 mg/dL (70-110); Sodium 143 mmol/L (135-145); Total Bilirubin 1.1 mg/dL (0.3-1.2); Total Protein 6.4 g/dL (6.2-8.2)
== END | disposition home or self-care (01) ==
LOC: LABPAT 11:15
PROVIDERS: ATTEND Internal Medicine Interventional Cardiology
DX: Z01.812 Encounter for preprocedural laboratory examination (principal); I42.0 Dilated cardiomyopathy
CPT/HCPCS: 80053; 84439; 84443; 85027

== ENCOUNTER → 2024-12-11 | Day surgery (SDC) | payer MEDICARE ==
[2024-12-07 12:36] VITALS: BMI 28.5
[~2024-12-11] MED LIST changes: +ALPRAZolam 0.25 MG TAB PO PRN; +ALPRAZolam 0.5 MG TAB PO PRN; +ASPIRIN 325 MG TAB PO ONE; +ATORVASTATIN 80 MG TAB PO ONE; -HYDROmorphone 0.5 MG/0.5 ML SYRINGE IVP PRN; -MIDAZOLAM 2 MG/2 ML VIAL IV PRN; +NITROGLYCERIN SL TABS 0.4 MG TAB SUBLINGUAL PRN; +SODIUM CHLORIDE 0.9% 1,000 ML IV SCH
[2024-12-11 09:08] VITALS: TEMP 97.7
[2024-12-11] MEDS: IV FLUID CONTINUATION 1,000 ML IV ONE (09:10)
[2024-12-11] MEDS: SODIUM CHLORIDE 0.9% 1,000 ML in EMPTY BAG 1 BAG IV SCH (09:36)
[2024-12-11] MEDS: MIDAZOLAM 2 MG/2 ML VIAL IVP ONE (12:35)
[2024-12-11] MEDS: LIDOCAINE 1% INJ 10MG/ML (20 ML MDV) SQ ONE (12:36)
[2024-12-11] MEDS: VERAPAMIL SYRINGE (5 MG/10 ML) INTRAARTER ONE (12:41)
[2024-12-11] MEDS: HEPARIN SODIUM 1,000 UN/ML (10ML VL) IV ONE (12:43)
[2024-12-11] MEDS: HEPARIN SODIUM,PORCINE (1 ML) 2,500 UNIT in SODIUM CHLORIDE 0.9% 250 ML IRRIGATION PRN (12:45)
[2024-12-11] MEDS: HEPARIN SODIUM,PORCINE 10,000 UNIT in SODIUM CHLORIDE 0.9% 1,000 ML IRRIGATION PRN (12:45)
[2024-12-11] MEDS: IOPAMIDOL-370 100ML BTL INJ ONE (12:54)
--- NOTE | 2024-12-11 13:19 | P.CARDCATH ---
Date of Procedure: 12/11/24 Description of Procedure: History: Patient was referred for cardiac catheterization to evaluate for CAD. This is a 84-year-old gentleman with a known history of nonischemic cardiomyopathy with a wide QRS and biventricular ICD. He had an episode on 22 November when he was found unresponsive had a syncopal spell and device interrogation suggested it was a ventricular fibrillation according to the available notes. He had a appropriate shock. Since then he has not had any recurrence he has been placed on a miodarone and discharged home uneventfully. He is currently on amiodarone 200 mg twice daily in addition to metoprolol. He also has paroxysmal atrial fibrillation and takes Xarelto. In view of a recent episode he was advised to have coronary angiography followed by EP evaluation and brought in for the procedure. Risk benefits options and rationale were explained. He understood all details and wished to proceed with the procedure Procedure Details: The risks, benefits, complications, treatment options, and expected outcomes were discussed with the patient. The patient and/or family concurred with the proposed plan, giving informed consent. Patient was brought to the lab technologist after IV hydration was begun and oral premedication was given. Patient was further sedated with midazolam. Patient was prepped and draped in the usual manner. Under strict aseptic precautions and local anesthesia a 6 Beninese introducer was placed in the right radial artery. Using a JL 3/5 and a JR 4/0 catheters I performed coronary angiography and the same JR catheter was used to check LV pressures and LV gram was not performed. After the procedure was completed the sheaths and catheters were all removed. Hemostasis was achieved with TR band. Saturation in the fingers of the right hand was about 94%. Moderate conscious sedation time was 19 minutes. Patient's oxygen saturation hemodynamics and EKG were monitored closely. Findings: Hemodynamics: Left ventricle end-diastolic pressure was 13 to 14 mmHg no gradient across aortic valve Left Main: Short patent vessel no significant disease bifurcates into LAD and circumflex LAD: [Large-caliber vessel extends along the anterior wall gives off septal and diagonal branches and runs all the way to the apex has minor irregularities no significant disease CIRC: This is a technically nondominant yet large distribution vessel that gives off 2 obtuse marginal branches. The second obtuse minor branch has about a 50% narrowing. Beyond in the caliber improves and supplies a fair amount of myocardium. Minor irregularities in other branches. The second obtuse marginal therefore has a 50 to 60% narrowing which is not critical. There is moderate disease this had a 40 to 50% narrowing in 2010 RCA: Very dominant vessel minor irregularities bifurcates into PDA and PLV both of which have only minor irregularities no significant disease dominant vessel LV: LV gram was not performed Closure Device: TR band Complications: None Estimated Blood Loss: Minimal Impression: This patient has nonischemic cardiomyopathy with acceptable filling pressures no gradient, right dominant system 50 to 60% second obtuse minor disease. No significant disease in the dominant RCA or the LAD. Pre Procedure Diagnosis: Ventricular fibrillation nonischemic cardiomyopathy Final Post Procedure Diagnosis: Nonischemic cardiomyopathy Recommendation: Continue current medications including beta-blockers and amiodarone and seek EP evaluation on this admission. Discussed my thoughts in detail with the patient and . I also spoke to Dr. Lombardo and requested him to see the patient today. Complications: None; patient tolerated the procedure well. Disposition: [facility]- hemodynamically stable. Condition: Stable Discharge Disposition: Discharge patient home later on today after evaluation by Dr. Lombardo. Will do an echocardiogram as well. Appointment to see me this at 9 AM
[2024-12-11] MEDS: AMIODARONE 200 MG TAB PO STA (13:53)
[2024-12-11 19:08] VITALS: BP 111/76; PULSE 60; RESP 18
--- NOTE | 2024-12-12 10:02 | CA ---
Transthoracic Echo Report Name: Niko Yuan Age: 79 Gender: M : 1945 Exam Date: 12/11/2024 14:24 Exam Location: [facility] Ht (in): 74 Wt (lb): 232 Ordering Physician: Jocelyn Lewis MD ([id number]) Attending/Referring Phys: State Manager Allyn Lma RDCS Procedure CPT: Indications: LV function, Cardiomyopathy, unspecified Cardiac Hx: Pacemaker Technical Quality: Fair Contrast 1: Definity Total Dose (mL): 2 Contrast 2: Total Dose (mL): MEASUREMENTS (Male / Female) Normal Values 2D ECHO LV Diastolic Diameter PLAX 6.3 cm 4.2 - 5.9 / 3.9 - 5.3 cm LV Systolic Diameter PLAX 5.3 cm IVS Diastolic Thickness 1.9 cm 0.6 - 1.0 / 0.6 - 0.9 cm LVPW Diastolic Thickness 1.3 cm 0.6 - 1.0 / 0.6 - 0.9 cm LV Relative Wall Thickness 0.5 RV Internal Dim ED PLAX 2.7 cm LA Systolic Diameter LX 5.6 cm 3.0 - 4.0 / 2.7 - 3.8 cm LA Volume 206.1 cm??? 18 - 58 / 22 - 52 cm??? LA Volume Index 87.1 cm???/m??? 16 - 28 cm???/m??? M-MODE Aortic Root Diameter MM 3.3 cm LA Systolic Diameter MM 5.1 cm LA Ao Ratio MM 1.5 AV Cusp Separation MM 1.4 cm DOPPLER AI Peak Velocity 278.1 cm/s AI Peak Gradient 30.9 mmHg AI Pressure Half Time 738.6 ms LVOT Peak Velocity 59.2 cm/s LVOT Peak Gradient 1.4 mmHg LVOT Velocity Time Integral 11.3 cm MV Area PHT 2.3 cm??? Mitral E Point Velocity 135.0 cm/s Mitral A Point Velocity 4.9 cm/s Mitral E to A Ratio 27.6 MV Deceleration Time 335.1 ms TR Peak Velocity 363.2 cm/s TR Peak Gradient 52.8 mmHg Right Ventricular Systolic Press 72.2 mmHg FINDINGS Left Ventricle Left ventricular ejection fraction is estimated at 20-25 %. Left ventricular wall thickness normal. Severely reduced global left ventricular systolic function. Mildly increased left ventricular diastolic diameter. Right Ventricle Mild right ventricular dilatation. Severe pulmonary hypertension. Right ventricular systolic pressure estimated at 72mmHg. Right Atrium Moderate right atrial dilatation. Catheter/pacemaker wire in the right atrial cavity. Left Atrium Severely increased left atrial diameter. Severely increased left atrial volume. Severely increased left atrial area. Mitral Valve Moderate thickening/calcification of the anterior mitral valve leaflet. Moderate thickening/calcification of the posterior mitral valve leaflet. Papillary muscle dysfunction of the mitral valve due to annular dilatation and ventricular dysfunction. Aortic Valve Diffuse thickening (sclerosis) of the aortic valve cusps without reduced excursion. Trileaflet aortic valve. Mild aortic regurgitation. Tricuspid Valve Structurally normal tricuspid valve. Moderate tricuspid regurgitation. No tricuspid stenosis. Pulmonic Valve Structurally normal pulmonic valve. Trace pulmonic regurgitation. No pulmonic stenosis. Pericardium No pericardial or pleural effusion. Aorta Normal size aortic root and proximal ascending aorta. CONCLUSIONS LVEF 20 to 25%. Dilated LV cavity Severely reduced global LV systolic function Mildly dilated RV. Severe pulmonary hypertension with RVSP 72 mmHg PPM wire noticed in RA and RV Moderate RA dilatation, severe LA dilatation Severe posteriorly directed mitral regurgitation due to restricted posterior mitral leaflet from papillary muscle dysfunction Mild aortic regurgitation Moderate tricuspid regurgitation Previewed by: Dr Mike Shepard (Electronically Signed) Final Date: 12 December 2024 10:01
--- NOTE | 2024-12-22 08:25 | P.EPCON ---
Electrophysiology Consult - EP Consult Electrophysiology Consult: This is Dr. Lombardo dictating a consult on this patient The patient was interviewed and examined IMPRESSION / ASSESSMENT: Multiple episodes of VF requiring shocks in the month of October Currently on oral amiodarone and metoprolol XL 50 mg p.o. daily Left ventricular ejection fraction of about 20-25% Frequent PVCs Permanent atrial fibrillation Left bundle pacing PLAN: Maximize heart failure medications with beta-blockers Reassessment of LV function today Twelve-lead EKG today Check TSH today Continue amiodarone 400 mg p.o. daily for 4 weeks and then reduce the dose to 200 mg p.o. daily Reduce the dose of terazosin to 2 MGs daily Increase metoprolol succinate to 50 mg twice daily Later consider stopping metolazone, increasing dose of spironolactone and Lasix Continue losartan low-dose HPI 79-year-old male patient admitted with a syncopal spell on 21 November 2024 He states he was weak at that time. He was experiencing diarrhea nausea vomiting He had multiple ICD discharges. Potassium was normal His EKG at that time showed left bundle pacing with a stimulus to R wave peak time in lead I = 80 QR pattern in lead V1 along with fractionation Frequent PVCs of 2 different morphologies BiV ICD interrogation revealed very fast VT of 250 ms/VF Successful defibrillation 2D echo showed severe LV dysfunction ROS: No fever chills or rigors, no cough, phlegm or expectoration, no nausea, vomiting or diarrhea, no hematuria, dysuria, no musculoskeletal complaints, no strokes or seizures, no skin lesions. EXAMINATION: Blood pressure 119/80 Pulse rate in the 70s afebrile Systolic murmur over the precordium Heart sounds are regular Abdomen is soft Extremities are warm REVIEW OF LABS, ECG & MEDICAL DATA BiV ICD implant with LV lead in posterolateral vein in 2013 Nonfunctioning LV lead with high thresholds with premature battery depletion and diaphragmatic stimulation Implantation of a new left bundle lead and December 2023
== END ==
LOC: CATHCVL 08:35
PROVIDERS: ATTEND Internal Medicine Interventional Cardiology
DX: I48.0 Paroxysmal atrial fibrillation (principal); I08.3 Combined rheumatic disorders of mitral, aortic and tricuspid valves; I27.20 Pulmonary hypertension, unspecified; I49.01 Ventricular fibrillation; I42.8 Other cardiomyopathies; I10 Essential (primary) hypertension; E78.00 Pure hypercholesterolemia, unspecified; Z72.0 Tobacco use; Z86.79 Personal history of other diseases of the circulatory system; Z95.0 Presence of cardiac pacemaker; Z88.1 Allergy status to other antibiotic agents; Z79.51 Long term (current) use of inhaled steroids; Z79.01 Long term (current) use of anticoagulants; Z79.899 Other long term (current) drug therapy
CPT/HCPCS: 99152; 93458; C8929; C1894; J2250; J1644 ×3; J2003; Q9957; Q9967; 93306

== ENCOUNTER → 2025-01-08 | Outpatient (CLI) | payer MEDICARE ==
--- NOTE | 2025-01-08 16:37 | US ---
EXAMINATION TYPE: US venous doppler duplex LE BI DATE OF EXAM: 01/08/2025 4:13 PM COMPARISON: [facility] 2022 & 2021 CLINICAL INDICATION: Male, 79 years old with history of R22.43 LOCALIZED SWELLING, MASS AND LUMP, LOW ER LI; Bilateral leg swelling, patient on blood thinners TECHNIQUE: The lower extremity deep venous system is examined utilizing real time linear array sonog hina with graded compression, color doppler sonography, and spectral doppler. SIDE PERFORMED: Bilateral FINDINGS: VESSELS IMAGED: Common Femoral Vein Deep Femoral Vein Greater Saphenous Vein * Femoral Vein Popliteal Vein Small Saphenous Vein * Proximal Calf Veins (* superficial vessels) Right Leg: Appears negative for DVT Left Leg: Appears negative for DVT IMPRESSION: No evidence for DVT within the bilateral lower extremities imaged from the groin to the upper calves. [facility], , 01/08/2025 4:35 PM
== END | disposition home or self-care (01) ==
LOC: RADUSWWP 15:37
PROVIDERS: ATTEND Internal Medicine
DX: R22.43 Localized swelling, mass and lump, lower limb, bilateral (principal); Z79.01 Long term (current) use of anticoagulants
CPT/HCPCS: 93970